=== PATIENT | female | born 1945 | race Caucasian/White ===

== ENCOUNTER 2020-07-24 12:46 | Inpatient (IN) | payer MEDICARE, OTHER ==
[~2020-07-24] VITALS: Ht 154.9 cm; Wt 84.4 kg
[2020-07-24 13:58] VITALS: BP_SYST 123
[2020-07-24 14:02] VITALS: BP 123/60
[2020-07-24] MEDS: guaiFENesin SYRUP 100 MG/5 ML 10 ML (ROBITUSSIN SF) PO SCH ×3 (14:49→20:38)
[2020-07-24] MEDS: ENOXAPARIN 40 MG/0.4 ML (LOVENOX) SYR SC SCH (14:49)
--- NOTE | 2020-07-24 15:24 | History & Physical-Hospitalist ---
History of Present Illness HPI/Chief Complaint Pt is a 74yoCF who was direct admitted from [facility] Urgent care due to COVID19. She states that her beckybadn was diagnosed with COVID on 07/19 and she came back positive the next day as well. She woke up that morning thinking she had pneumonia and had a dry hacking cough. She had a fever of 104.7 this morning prompting her to seek evaluation back at the urgent care. She is on roughly day 7 of symptoms and her sats were 91% at urgent care prompting them to recommend admission. She reports feeling much better now that she is here but continues to have dry cough. Source: patient Date Seen 07/24/20 Time Seen by a Provider: 15:18 Attending Physician Lito Thapa MD PCP Wang Kurtz MD Referring Physician Date of Admission Jul 24, 2020 at 13:38 Home Medications & Allergies Home Medications Reviewed patient Home Medication Reconciliation performed by pharmacy medication reconciliations boiler testing technician and/or nursing. Patients Allergies have been reviewed. Allergies Allergies Coded Allergies amoxicillin (Verified Adverse Reaction, Unknown, YEAST INFECTION, 07/24/20) clavulanic acid (Verified Adverse Reaction, Unknown, YEAST INFECTION, 07/24/20) Past Tqiudbm-Jototh-Qbjiga Hx Past Med/Social Hx: Reviewed Nursing Past Med/Soc Hx Patient Social History Marrital Status: Employed/Student: retired Smoking Status: Former Smoker Recent Foreign Travel: No Contact w/other who traveled: Yes Recent Infectious Disease Expo: Yes (covid19) Family History Reviewed Nursing Family Hx No Pertinent Family Hx Review of Systems Constitutional: fever, malaise EENTM: no symptoms reported Respiratory: cough; No phlegm; short of breath Cardiovascular: no symptoms reported Gastrointestinal: no symptoms reported Genitourinary: no symptoms reported Musculoskeletal: no symptoms reported Skin: no symptoms reported Psychiatric/Neurological: No Symptoms Reported Physical Exam Physical Exam Vital Signs Vital Signs - First Documented 07/24/20 07/24/20 13:58 14:02 Temp 36.1 Pulse 103 Resp 20 B/P (MAP) 123/ Pulse Ox 95 O2 Delivery Room Air Capillary Refill : Less Than 3 Seconds Height, Weight, BMI Height: '" Weight: lbs. oz. kg; 26.88 BMI Method: General Appearance: No Apparent Distress, WD/WN HEENT: PERRL/EOMI, Moist Mucous Membranes; No Scleral Icterus (L), No Scleral Icterus (R) Neck: Normal Inspection, Supple Respiratory: Lungs Clear, No Accessory Muscle Use, No Respiratory Distress Cardiovascular: Regular Rate, Rhythm, No JVD, No Murmur Gastrointestinal: Normal Bowel Sounds, Non Tender, Soft Extremity: Normal Capillary Refill, No Calf Tenderness, No Pedal Edema Neurologic/Psychiatric: Alert, Oriented x3, Normal Mood/Affect Skin: Normal Color, Warm/Dry Results Results/Procedures Labs Patient resulted labs reviewed. Imaging: Reviewed Imaging Report Assessment/Plan Admission Diagnosis COVID19 Admission Status: Observation Assessment and Plan COVID19 Mild hypoxic at [facility] urgent care but on arrival was 94-96 while I was at bedside on room air Will continue decadron Discussed EUA status of convalescent plasma and pt agreeable to use Will defer remdesivir for now as sats 94 and above- reconsider if she becomes hypoxic Labs reveiwed from 07/19 but will get updated ones today IS DVT ppx: Lovenox Diagnosis/Problems Diagnosis/Problems (1) Coronavirus infection LITO THAPA MD Jul 24, 2020 15:24
[2020-07-24] MEDS ORDERED: ASCO500C18 PO (15:46)
[2020-07-24] MEDS ORDERED: DOXY100T2 PO (15:46)
[2020-07-24] MEDS ORDERED: DEXA6TAB PO (15:46)
[2020-07-24] MEDS ORDERED: ASPI-1238 PO (15:46)
[2020-07-24] MEDS ORDERED: ZINC50TA58 PO (15:46)
[2020-07-24] MEDS ORDERED: PANT40TA52 PO (15:46)
[2020-07-24] MEDS ORDERED: CHOL500044 PO (15:46)
[2020-07-24] MEDS ORDERED: ALBU2.5V4 NEB (15:46)
[2020-07-24] MEDS ORDERED: ACET325T38 PO (15:46)
[2020-07-24] MEDS ORDERED: DIPH25TA65 PO (15:46)
[2020-07-24] MEDS ORDERED: ALBU18HF2 INH (15:46)
[2020-07-24] MEDS ORDERED: PROM5SYR PO (15:46)
[2020-07-24] MEDS ORDERED: QUIN324C4 PO (15:46)
--- NOTE | 2020-07-24 15:55 | NUR ---
SPOKE WITH THE PT (CALLED HER ROOM PHONE), WENT THRU THE EXT MED HISTORY AND CALLED [facility] TO COMPLETE THE MED REC THE PT WAS ABLE TO TELL ME THE NAMES OF HER MEDICATIONS WELL WHEN/HOW SHE TAKES EACH. PATRICIA ALSO LET ME KNOW THAT AT [facility] SHE WAS GIVEN A SAMPLE INHALER, BUT SHE CANT REMEMBER THE NAME. I HAD TO LEAVE A MESSAGE WITH URGENT CARE TO FIND OUT WHAT INHALER THEY GAVE THE PT, WHEN THEY RETURN MY CALL I WILL UPDATE THE MED REC/NOTES. OTC MEDS: VIT D BENADRYL TYLENOL THE FOLLOWING OTC MEDS THE PT HAS JUST STARTED TAKING SINCE HER POSITIVE COVID TEST: ASPIRIN 81MG VIT C ZINC Addendum: 07/25/20 at 0800 by ISHAN COTO [facility] RETURNED MY CALL AND LET ME KNOW SHE WAS GIVEN A SAMPLE OF BREZTRI AEROSPHERE
[2020-07-24 16:19] LABS: BASOPHILS % (AUTO) 0 % (0-10); EOSINOPHILS % (AUTO) 0 % (0-10); HEMATOCRIT 40 % (35-52); HEMOGLOBIN 13.1 g/dL (11.5-16.0); LYMPHOCYTES # (AUTO) 0.8 10^3/uL (1.0-4.0); LYMPHOCYTES % (AUTO) 8 % (12-44); MEAN CORPUSCULAR HEMOGLOBIN 28 pg (25-34); MEAN CORPUSCULAR HGB CONC 33 g/dL (32-36); MEAN CORPUSCULAR VOLUME 86 fL (80-99); MEAN PLATELET VOLUME 9.5 fL (9.0-12.2); MONOCYTES # (AUTO) 0.5 10^3/uL (0.0-1.0); MONOCYTES % (AUTO) 5 % (0-12); NEUTROPHILS # (AUTO) 8.6 10^3/uL (1.8-7.8); NEUTROPHILS % (AUTO) 85 % (42-75); PLATELET COUNT 286 10^3/uL (130-400); WHITE BLOOD COUNT 10.2 10^3/uL (4.3-11.0)
[2020-07-24 16:22] VITALS: BP 108/61
[2020-07-24 16:31] LABS: ALANINE AMINOTRANSFERASE 38 U/L (0-55); ALBUMIN 4.1 GM/DL (3.2-4.5); ALKALINE PHOSPHATASE 60 U/L (40-136); BILIRUBIN,TOTAL 0.6 MG/DL (0.1-1.0); BUN/CREATININE RATIO 25; CALCIUM 8.8 MG/DL (8.5-10.1); CARBON DIOXIDE 22 MMOL/L (21-32); CHLORIDE 101 MMOL/L (98-107); CREATININE SERUM 0.73 MG/DL (0.60-1.30); GFR ESTIMATED > 60; GLUCOSE 138 MG/DL (70-105); POTASSIUM 4.6 MMOL/L (3.6-5.0); SODIUM 136 MMOL/L (135-145); TOTAL PROTEIN 6.8 GM/DL (6.4-8.2)
[2020-07-24 17:05] LABS: FIBRIN DEGRADATION PRODUCTS <= 0.27 UG/ML (0.00-0.49); INR 1.1 (0.8-1.4)
--- NOTE | 2020-07-24 17:37 | NUR ---
LAB CALLED IN REGARDS TO CONVALESCENT PLASMA ORDER, BB WILL CALL RN WHEN PLASMA IS READY.
[2020-07-24] MEDS: guaiFENesin/CODEINE (ROBITUSSIN AC) 10ML UDC PO PRN (18:08)
[2020-07-24 19:46] VITALS: BP 111/57
[2020-07-24] MEDS ORDERED: NS IV 500 ML 500 ML ONE (23:16)
[2020-07-24] MEDS: ACETAMINOPHEN 325 MG TABLET PO PRN (23:53)
[2020-07-24 23:55] VITALS: BP 141/62
[2020-07-25] VITALS (11 sets, daily range): BP systolic 86–138; BP diastolic 47–93
[2020-07-25] MEDS: guaiFENesin SYRUP 100 MG/5 ML 10 ML (ROBITUSSIN SF) PO SCH ×6 (01:25→20:45)
[2020-07-25] MEDS: ONDANSETRON 4 MG/2 ML (SDV) Z0FRAN IV PRN (04:25)
[2020-07-25] MEDS: guaiFENesin/CODEINE (ROBITUSSIN AC) 10ML UDC PO PRN (04:26)
[2020-07-25 06:07] LABS: HEMOGLOBIN 11.7 g/dL (11.5-16.0); MEAN PLATELET VOLUME 9.6 fL (9.0-12.2); WHITE BLOOD COUNT 8.7 10^3/uL (4.3-11.0)
[2020-07-25 06:13] LABS: ALBUMIN 3.7 GM/DL (3.2-4.5); CHLORIDE 98 MMOL/L (98-107); POTASSIUM 3.6 MMOL/L (3.6-5.0); SODIUM 131 MMOL/L (135-145)
[2020-07-25 06:14] LABS: CALCIUM 7.9 MG/DL (8.5-10.1)
[2020-07-25 06:16] LABS: GLUCOSE 94 MG/DL (70-105); TOTAL PROTEIN 6.1 GM/DL (6.4-8.2)
[2020-07-25 06:17] LABS: CARBON DIOXIDE 21 MMOL/L (21-32)
[2020-07-25 06:18] LABS: BILIRUBIN,TOTAL 0.7 MG/DL (0.1-1.0)
[2020-07-25 06:19] LABS: ALKALINE PHOSPHATASE 48 U/L (40-136)
[2020-07-25 06:20] LABS: CREATININE SERUM 0.69 MG/DL (0.60-1.30); GFR ESTIMATED > 60
[2020-07-25 06:21] LABS: BUN/CREATININE RATIO 26
[2020-07-25 06:22] LABS: ALANINE AMINOTRANSFERASE 30 U/L (0-55)
[2020-07-25] MEDS ORDERED: BUDE10.7 IH (07:59)
[2020-07-25] MEDS: dexAMETHasone 6 MG TAB (DECADRON) PO SCH (09:46)
[2020-07-25] MEDS: ACETAMINOPHEN 325 MG TABLET PO PRN (10:06)
[2020-07-25] MEDS ORDERED: REMDESIVIR INJ 200 MG in NS (IVPB) 210 ML IV ONE (10:15)
--- NOTE | 2020-07-25 10:25 | NUR ---
PT GAVE VERBAL CONSENT FOR IV REMDESIVIR.
[2020-07-25] MEDS ORDERED: NS IV 1000 ML 1,000 ML ONE (12:10)
--- NOTE | 2020-07-25 12:14 | Progress Note - Hospitalist ---
Subjective HPI/CC On Admission Date Seen by Provider: Jul 25, 2020 Time Seen by Provider: 12:14 Pt is a 74yoCF who was direct [place] [facility] [place] due to COVID19. She states that her liatn was diagnosed with COVID on 07/19 and she came back positive the next day as well. She woke up that morning thinking she had pneumonia and had a dry hacking cough. She had a fever of 104.7 this morning prompting her to seek evaluation back at the urgent care. She is on roughly day 7 of symptoms and her sats were 91% at urgent care prompting them to recommend admission. She reports feeling much better now that she is here but continues to have dry cough. Subjective/Events-last exam Pt reports feeling better today. Fever broke and now feeling better. Did have hypoxia earlier this AM and now on 6lpm. Objective Exam Vital Signs Vital Signs Date Time Temp Pulse Resp B/P (MAP) Pulse Ox O2 Delivery O2 Flow Rate FiO2 07/25/20 10:04 39.6 07/25/20 09:49 116 96 Nasal Cannula 6.00 07/25/20 08:00 20 129/93 (105) Capillary Refill : Less Than 3 SecondsLess Than 3 Seconds General Appearance: No Apparent Distress, WD/WN Respiratory: Lungs Clear, No Respiratory Distress Cardiovascular: Regular Rate, Rhythm, No Murmur Extremity: No Calf Tenderness, No Pedal Edema Neurologic/Psychiatric: Alert, Oriented x3 Results/Procedures Lab Laboratory Tests 07/24/20 15:50 07/25/20 05:50 Patient resulted labs reviewed. Imaging: Reviewed Imaging Report Assessment/Plan Assessment and Plan Assess & Plan/Chief Complaint Acute Respiratory Failure COVID19 Sat 80 on room air this AM, now on 6lpm Remdesivir started this AM Continue decadron S/p 1 unit convalescent plasma IS DVT ppx: Lovenox Diagnosis/Problems Diagnosis/Problems (1) Coronavirus infection Clinical Quality Measures DVT/VTE Risk/Contraindication: Risk Factor Score Per Nursin RFS Level Per Nursing on Admit: 4+=Very High LITO THAPA MD Jul 25, 2020 12:14
[2020-07-25] MEDS ORDERED: NS IV 1000 ML 1,000 ML IV SCH (12:15)
[2020-07-25] MEDS: NS IV 1000 ML 1,000 ML IV SCH (12:20)
[2020-07-25] MEDS: ENOXAPARIN 40 MG/0.4 ML (LOVENOX) SYR SC SCH (13:55)
--- NOTE | 2020-07-25 15:51 | NUR ---
BP 86/47 78HR, 95% 5L HF, 36.2, RESP 20. PT RESTING IN BED, ONLY COMPLAINT IS THAT SHE FEELS TIRED. DR THAPA NOTIFIED VIA PHONE AND GAVE ORDERS TO CONTINUE TO MONITOR BLOOD PRESSURE.
[2020-07-25] MEDS ORDERED: NON-FORMULARY MEDICATION 1 EA EA (Budesonide/Glycopyr/Formoterol (Breztri Aerosphere Inhal IH SCH (21:00)
[2020-07-26] MEDS: guaiFENesin SYRUP 100 MG/5 ML 10 ML (ROBITUSSIN SF) PO SCH ×6 (02:10→20:25)
[2020-07-26] MEDS: NS IV 1000 ML 1,000 ML IV SCH ×2 (02:10→16:28)
[2020-07-26 03:46] VITALS: BP 107/68
[2020-07-26 06:10] LABS: ALANINE AMINOTRANSFERASE 30 U/L (0-55); ALBUMIN 3.4 GM/DL (3.2-4.5); ALKALINE PHOSPHATASE 49 U/L (40-136); BILIRUBIN,TOTAL 0.5 MG/DL (0.1-1.0); BUN/CREATININE RATIO 31; CALCIUM 7.9 MG/DL (8.5-10.1); CARBON DIOXIDE 20 MMOL/L (21-32); CHLORIDE 103 MMOL/L (98-107); CREATININE SERUM 0.58 MG/DL (0.60-1.30); GFR ESTIMATED > 60; GLUCOSE 90 MG/DL (70-105); POTASSIUM 3.7 MMOL/L (3.6-5.0); SODIUM 133 MMOL/L (135-145); TOTAL PROTEIN 5.7 GM/DL (6.4-8.2)
[2020-07-26 08:07] VITALS: BP 116/55
[2020-07-26] MEDS: VITAMIN D3 125 MCG (5,000 UNITS) CAPSULE PO SCH (08:51)
[2020-07-26] MEDS: dexAMETHasone 6 MG TAB (DECADRON) PO SCH (08:51)
[2020-07-26] MEDS: ASPIRIN E.C. 81 MG (ECOTRIN) TAB PO SCH (08:51)
[2020-07-26] MEDS: guaiFENesin/CODEINE (ROBITUSSIN AC) 10ML UDC PO PRN ×2 (08:53→20:25)
[2020-07-26] MEDS: REMDESIVIR INJ 100 MG in NS (IVPB) 230 ML IV SCH (09:00)
[2020-07-26] MEDS: ACETAMINOPHEN 325 MG TABLET PO PRN ×2 (09:14→18:52)
[2020-07-26 11:35] VITALS: BP 102/52
--- NOTE | 2020-07-26 13:02 | Progress Note - Hospitalist ---
Subjective HPI/CC On Admission Date Seen by Provider: Jul 26, 2020 Time Seen by Provider: 12:58 Pt is a 74yoCF who was direct admitted from [facility] care due to COVID19. She states that her liatn was diagnosed with COVID on 07/19 and she came back positive the next day as well. She woke up that morning thinking she had pneumonia and had a dry hacking cough. She had a fever of 104.7 this morning prompting her to seek evaluation back at the urgent care. She is on roughly day 7 of symptoms and her sats were 91% at urgent care prompting them to recommend admission. She reports feeling much better now that she is here but continues to have dry cough. Subjective/Events-last exam Pt reports doing ok physically but has had a rough morning because her is currently being admitted. She is tearful during our conversation. Objective Exam Vital Signs Vital Signs Date Time Temp Pulse Resp B/P (MAP) Pulse Ox O2 Delivery O2 Flow Rate FiO2 07/26/20 11:35 36.4 96 24 102/52 (69) 93 High Flow N/C 6.00 Capillary Refill : Less Than 3 SecondsLess Than 3 Seconds General Appearance: No Apparent Distress, Chronically ill Respiratory: Lungs Clear, Other (on 6lpm HFNC) Cardiovascular: Regular Rate, Rhythm, No Murmur Gastrointestinal: Normal Bowel Sounds, Non Tender, Soft Neurologic/Psychiatric: Alert, Oriented x3 Results/Procedures Lab Laboratory Tests 07/26/20 05:22 Patient resulted labs reviewed. Imaging: Reviewed Imaging Report Assessment/Plan Assessment and Plan Assess & Plan/Chief Complaint Acute Respiratory Failure COVID19 Still on 6lpm Continue remdesivir Continue decadron S/p 1 unit convalescent plasma IS PT/OT DVT ppx: Lovenox Diagnosis/Problems Diagnosis/Problems (1) Coronavirus infection Clinical Quality Measures DVT/VTE Risk/Contraindication: Risk Factor Score Per Nursin RFS Level Per Nursing on Admit: 4+=Very High LITO THAPA MD Jul 26, 2020 13:02
[2020-07-26] MEDS: ENOXAPARIN 40 MG/0.4 ML (LOVENOX) SYR SC SCH (13:09)
--- NOTE | 2020-07-26 14:56 | NUR ---
"RD ASSESSMENT PMHx: unknown PMH PT INTERACTION: Note pt is currently in COVID isolation, per chart review. Note all diet information for nutrition assessment is per Sarahi RN or per chart review. Sarahi states current appetite appears better today. Note avg PO intake 50% x1d, per chart review. Sarahi states some recent issues with nausea, vomiting, and diarrhea that she is aware of. Note last BM was 07/26, and pt not currently on bowel regimen per chart review. Note unable to determine recent wt hx, per chart review. ABNORMAL NUTRITION-RELATED LAB VALUES LOW: Na 133; cr 0.58; Ca 7.9; Pro 5.7 HIGH: AST 35; Est. kcal needs: 7853-8982 kcal | 20-25 kcal/kg Est. Pro needs: 52-65 g Pro | 0.8-1.0 g Pro/kg PES STATEMENT: Inadequate oral intake (NI-2.1) related to loss of appetite, nausea, vomiting, and diarrhea, as evidenced by chart review, communication with RN, and avg PO intake 50% x1d. INTERVENTION: Continue with current diet order of Regular diet. Add Ensure Enlive (vary) to meals TID, for increased kcal intake. Provides 350 kcal and 20 g Pro per serving. Will continue to follow and reassess as pt needs, intake, and status change. Yonas Terry, MS RD LD"
[2020-07-26 15:49] VITALS: BP 97/59
[2020-07-26 19:36] VITALS: BP 96/53
[2020-07-26 23:55] VITALS: BP 98/59
[2020-07-27] MEDS: guaiFENesin SYRUP 100 MG/5 ML 10 ML (ROBITUSSIN SF) PO SCH ×6 (01:09→20:57)
[2020-07-27 04:22] VITALS: BP 110/59
[2020-07-27] MEDS: NS IV 1000 ML 1,000 ML IV SCH (06:00)
[2020-07-27 06:53] LABS: ALBUMIN 3.1 GM/DL (3.2-4.5)
[2020-07-27 06:54] LABS: CHLORIDE 105 MMOL/L (98-107); POTASSIUM 3.9 MMOL/L (3.6-5.0); SODIUM 138 MMOL/L (135-145)
[2020-07-27 06:55] LABS: CALCIUM 7.7 MG/DL (8.5-10.1)
[2020-07-27 06:56] LABS: GLUCOSE 100 MG/DL (70-105); TOTAL PROTEIN 5.5 GM/DL (6.4-8.2)
[2020-07-27 06:57] LABS: CARBON DIOXIDE 22 MMOL/L (21-32)
[2020-07-27 06:58] LABS: BILIRUBIN,TOTAL 0.4 MG/DL (0.1-1.0)
[2020-07-27 06:59] LABS: ALKALINE PHOSPHATASE 43 U/L (40-136); CREATININE SERUM 0.53 MG/DL (0.60-1.30); GFR ESTIMATED > 60
[2020-07-27 07:00] LABS: BUN/CREATININE RATIO 25
[2020-07-27 07:02] LABS: ALANINE AMINOTRANSFERASE 24 U/L (0-55)
[2020-07-27 08:00] VITALS: BP 134/61
[2020-07-27] MEDS: dexAMETHasone 6 MG TAB (DECADRON) PO SCH (08:56)
[2020-07-27] MEDS: ASPIRIN E.C. 81 MG (ECOTRIN) TAB PO SCH (08:56)
[2020-07-27] MEDS: VITAMIN D3 125 MCG (5,000 UNITS) CAPSULE PO SCH (08:56)
[2020-07-27] MEDS: ACETAMINOPHEN 325 MG TABLET PO PRN ×3 (08:57→21:53)
[2020-07-27] MEDS: REMDESIVIR INJ 100 MG in NS (IVPB) 230 ML IV SCH (09:04)
--- NOTE | 2020-07-27 11:29 | Progress Note - Hospitalist ---
Subjective HPI/CC On Admission Date Seen by Provider: Jul 27, 2020 Time Seen by Provider: 11:24 Pt is a 74yoCF who was direct admitted from [facility] care due to COVID19. She states that her liatn was diagnosed with COVID on 07/19 and she came back positive the next day as well. She woke up that morning thinking she had pneumonia and had a dry hacking cough. She had a fever of 104.7 this morning prompting her to seek evaluation back at the urgent care. She is on roughly day 7 of symptoms and her sats were 91% at urgent care prompting them to recommend admission. She reports feeling much better now that she is here but continues to have dry cough. Subjective/Events-last exam Pt reports feeling more short of breath this AM. Otherwise no complaints. Objective Exam Vital Signs Vital Signs Date Time Temp Pulse Resp B/P (MAP) Pulse Ox O2 Delivery O2 Flow Rate FiO2 07/27/20 08:00 36.7 84 22 134/61 (85) 90 OxyMask 6.00 Capillary Refill : Less Than 3 SecondsLess Than 3 Seconds General Appearance: No Apparent Distress, WD/WN Respiratory: Wheezing (end expiratory), Other (on 6lpm) Cardiovascular: Regular Rate, Rhythm, Normal Peripheral Pulses Neurologic/Psychiatric: Alert, Oriented x3, Normal Mood/Affect Results/Procedures Lab Laboratory Tests 07/27/20 05:59 Patient resulted labs reviewed. Imaging: Reviewed Imaging Report Assessment/Plan Assessment and Plan Assess & Plan/Chief Complaint Acute Respiratory Failure COVID19 Still on 6lpm Continue remdesivir Continue decadron S/p 1 unit convalescent plasma IS PT/OT Overall prognosis in guarded, discussed that we will take each day one at a time and help support her through this and that she is getting every treatment available to us DVT ppx: Lovenox Diagnosis/Problems Diagnosis/Problems (1) Coronavirus infection Status: Acute (2) Acute respiratory failure Status: Acute Qualifiers: Respiratory failure complication: hypoxia Qualified Codes: J96.01 - Acute respiratory failure with hypoxia Clinical Quality Measures DVT/VTE Risk/Contraindication: Risk Factor Score Per Nursin RFS Level Per Nursing on Admit: 4+=Very High LITO THAPA MD Jul 27, 2020 11:29
[2020-07-27 11:58] VITALS: BP 123/95
[2020-07-27 12:00] VITALS: BP 130/60
--- NOTE | 2020-07-27 14:05 | Physical Therapy Evaluation ---
PT Evaluation-General Medical Diagnosis Admission Date Jul 24, 2020 at 13:38 Medical Diagnosis: Covid 19 Onset Date: Jul 24, 2020 Therapy Diagnosis Therapy Diagnosis: debility Precautions Precautions/Isolations: Contact Isolation, Droplet Isolation Referral Physician: Maricel Reason for Referral: Evaluation/Treatment Medical History Current History Direct admit from urgent care with 104 fever Reviewed History: Yes Social History Home: Single Level Current Living Status: Spouse Prior Prior Level of Function SCALE: Activities may be completed with or without assistive devices. 3-Skniozebaw-tjsdxhd completes the activity by him/herself with no assistance from a helper. 5-Set-up or Clean-up Assistance-helper sets up or cleans up; patient completes activity. [place] assists only prior to or following the activity. 4-Supervision or Touching Assistance-helper provides verbal cues and/or touching/steadying and/or contact guard assistance as patient completes activity. Assistance may be provided throughout the activity or intermittently. 3-Partial/Moderate Assistance-helper does LESS THAN HALF the effort. [place] lifts, holds or supports trunk or limbs, but provides less than half the effort. 2-Substantial/Maximal Assistance-helper does MORE THAN HALF the effort. [place] lifts or holds trunk or limbs and provides more than half the effort. 2-Hqdzmnnfs-tqhaem does ALL the effort. Patient does none of the effort to complete the activity. Or, the assistance of 2 or more helpers is required for the patient to complete the activity. If activity was not attempted, code reason: 7-Patient Refused. 9-Not Applicable-not attempted and the patient did not perform the activity before the current illness, exacerbation or injury. 10-Not Attempted due to Environmental Limitations-(lack of equipment, weather restraints, etc.). 88-Not Attempted due to Medical Conditions or Safety Concerns. Bed Mobility: 6 Transfers (B,C,W/C): 6 Gait: 6 Stairs: 6 Indoor Mobility (Ambulation): Independent Stairs: Independent Prior Devices Use: None PT Evaluation-Current Subjective Patient agrees to PT. She reports she is feeling better today. Objective Patient Orientation: Normal For Age Attachments: Oxygen, IV ROM/Strength ROM Lower Extremities bilateral LE WFL Strength Lower Extremities 4/5 grossly bilateral LE Integumentary/Posture Integumentary refer to nursing notes Bowel Incontinence: No Bladder Incontinence: No Posture grossly intact Neuromuscular (Tone, Coordination, Reflexes) grossly intact Sensory Vision: Functional Hearing: Functional Transfers Roll Left to Right (QC): 6 Sit to Lying (QC): 6 Lying to Sitting/Side of Bed(Q: 6 Sit to Stand (QC): 5 Chair/Asl-hf-Ppewx Xfer(QC): 5 Toilet Transfer (QC): 5 Gait Does the Patient Walk?: Yes Mode of Locomotion: Walk Anticipated Mode of Locomotion: Walk Walk 10 feet (QC): 5 Walk 50 ft with 2 Turns(QC): 5 Walk 150 ft (QC): 88 Gait Assistive Device: FWW Comments/Gait Description safe and functional with FWW Balance Sitting Static: Normal Sitting Dynamic: Normal Standing Static: Normal Standing Dynamic: Normal Treatment Increase SOA with minimal activity with SAO2 95% with O2 in place Assessment/Needs 74 y.o. female, will be seen short term by skilled PT to address pulmonary function with functional mobility to ensure safe return to home with spouse at maximum LOF. Rehab Potential: Fair PT [facility] Goals [facility] Goals PT Information Security Consultant Goals Time Frame: Aug 03, 2020 Roll Left & Right (QC): 6 Sit to Lying (QC): 6 Lying-Sitting on Side/Bed(QC): 6 Sit to Stand (QC): 6 Chair/Tml-eg-Lsrha Xfer(QC): 6 Toilet Transfer (QC): 6 Car Transfer (QC): 6 Does the Patient Walk: Yes Walk 10 feet (QC): 6 Walk 50ft with 2 Turns (QC): 6 Walk 150 ft (QC): 6 Walking 10ft on Uneven Surface: 6 1 Step (curb) (QC): 6 4 Steps (QC): 6 12 Steps (QC): 9 PT Plan Problem List Problem List: Activity Tolerance Treatment/Plan Treatment Plan: Continue Plan of Care Treatment Plan: Education, Functional Activity Mumtaz, Functional Strength, Gait, Safety, Therapeutic Exercise, Transfers Treatment Duration: Aug 03, 2020 Frequency: 6 times per week Estimated Hrs Per Day: .25 hour per day Patient and/or Family Agrees t: Yes Time/GCodes Time In: 1300 Time Out: 1320 Total Billed Treatment Time: 20 Total Billed Treatment 1 visit EVModC 20 min CRISTINO JEFFREY PT Jul 27, 2020 14:05
[2020-07-27] MEDS: ENOXAPARIN 40 MG/0.4 ML (LOVENOX) SYR SC SCH (14:57)
[2020-07-27 15:32] VITALS: BP 112/56
[2020-07-27 19:31] VITALS: BP 124/57
[2020-07-27] MEDS: RT-ALBUTEROL INHALER HFA (VENTOLIN HFA) 18 GM IH SCH (19:52)
[2020-07-27] MEDS: guaiFENesin/CODEINE (ROBITUSSIN AC) 10ML UDC PO PRN (20:55)
[2020-07-27] MEDS ORDERED: NS IV 1000 ML 1,000 ML ONE (21:25)
[2020-07-28] VITALS (16 sets, daily range): BP systolic 110–154; BP diastolic 59–90
[2020-07-28] MEDS: guaiFENesin SYRUP 100 MG/5 ML 10 ML (ROBITUSSIN SF) PO SCH ×6 (00:25→20:08)
[2020-07-28 06:09] LABS: MEAN PLATELET VOLUME 9.7 fL (9.0-12.2); WHITE BLOOD COUNT 7.3 10^3/uL (4.3-11.0)
[2020-07-28 06:25] LABS: ALBUMIN 3.2 GM/DL (3.2-4.5)
[2020-07-28 06:26] LABS: CHLORIDE 103 MMOL/L (98-107); POTASSIUM 3.6 MMOL/L (3.6-5.0); SODIUM 138 MMOL/L (135-145)
[2020-07-28 06:27] LABS: CALCIUM 8.1 MG/DL (8.5-10.1)
[2020-07-28 06:28] LABS: GLUCOSE 116 MG/DL (70-105); TOTAL PROTEIN 5.7 GM/DL (6.4-8.2)
[2020-07-28 06:29] LABS: CARBON DIOXIDE 22 MMOL/L (21-32)
[2020-07-28 06:30] LABS: BILIRUBIN,TOTAL 0.4 MG/DL (0.1-1.0)
[2020-07-28 06:31] LABS: ALKALINE PHOSPHATASE 45 U/L (40-136)
[2020-07-28 06:32] LABS: CREATININE SERUM 0.52 MG/DL (0.60-1.30); GFR ESTIMATED > 60
[2020-07-28 06:33] LABS: BUN/CREATININE RATIO 21
[2020-07-28 06:35] LABS: ALANINE AMINOTRANSFERASE 21 U/L (0-55)
[2020-07-28] MEDS: dexAMETHasone 6 MG TAB (DECADRON) PO SCH (07:51)
[2020-07-28] MEDS: VITAMIN D3 125 MCG (5,000 UNITS) CAPSULE PO SCH (07:51)
[2020-07-28] MEDS: ACETAMINOPHEN 325 MG TABLET PO PRN (07:51)
[2020-07-28] MEDS: ASPIRIN E.C. 81 MG (ECOTRIN) TAB PO SCH (07:51)
[2020-07-28] MEDS: RT-ALBUTEROL INHALER HFA (VENTOLIN HFA) 18 GM IH PRN ×2 (07:53→15:39)
[2020-07-28] MEDS: RT-ALBUTEROL INHALER HFA (VENTOLIN HFA) 18 GM IH SCH ×3 (08:23→21:58)
--- NOTE | 2020-07-28 10:08 | Physical Therapy Progress Note ---
Therapy Progress Note Pt sitting up EOB struggling to breath, O2 sats remaining at 85%, RN present in room states that he just increased her oxygen. Pt requesting to hold therapy this date "I just need to focus on breathing." Will follow up Thursday to continue with therapy treatment. PAYAL BUI PT Jul 28, 2020 10:08
[2020-07-28] MEDS: REMDESIVIR INJ 100 MG in NS (IVPB) 230 ML IV SCH (10:20)
--- NOTE | 2020-07-28 12:39 | Progress Note - Hospitalist ---
Subjective HPI/CC On Admission Date Seen by Provider: Jul 28, 2020 Time Seen by Provider: 12:34 Pt is a 74yoCF who was direct admitted from [facility] care due to COVID19. She states that her liatn was diagnosed with COVID on 07/19 and she came back positive the next day as well. She woke up that morning thinking she had pneumonia and had a dry hacking cough. She had a fever of 104.7 this morning prompting her to seek evaluation back at the urgent care. She is on roughly day 7 of symptoms and her sats were 91% at urgent care prompting them to recommend admission. She reports feeling much better now that she is here but continues to have dry cough. Subjective/Events-last exam Pt reports not feeling as well today. Had worsening dyspnea and oxygen saturations this morning. Now on 10lpm and requesting BiPAP to help with her work of breathing. Discussed with her and her daughter about using BiPAP and t ransferring to the ICU for this. Pt very tearful and anxious but agreeable to plan. Answer all questions of patient and her daughter's to the best of my ability. Specifically they asked about use of bamlanivimab and we discussed that this medicine is not readily available yet and only approved for people not in the hospital. Objective Exam Vital Signs Vital Signs Date Time Temp Pulse Resp B/P (MAP) Pulse Ox O2 Delivery O2 Flow Rate FiO2 07/28/20 12:05 36.2 85 26 152/70 (97) 96 High Flow N/C 9.00 07/27/20 11:58 21 Capillary Refill : Less Than 3 SecondsLess Than 3 Seconds General Appearance: Anxious, Chronically ill, Mild Distress Respiratory: Decreased Breath Sounds; No Wheezing; Other (increased work of breath) Cardiovascular: Regular Rate, Rhythm, No Murmur Gastrointestinal: Normal Bowel Sounds, Soft Neurologic/Psychiatric: Alert, Oriented x3, Normal Mood/Affect Results/Procedures Lab Laboratory Tests 07/28/20 05:55 Patient resulted labs reviewed. Imaging: Reviewed Imaging Report Assessment/Plan Assessment and Plan Assess & Plan/Chief Complaint Acute Respiratory Failure COVID19 Up to 10lpm today with increased work of breathing, requesting BiPAP Will transfer to ICU for BiPAP, I informed her daughter of this and her who is a patient next door as well Continue to prone Continue remdesivir Continue decadron S/p 1 unit convalescent plasma IS PT/OT CXR ordered Will repeat d-dimer Overall prognosis remains guarded, I worry that she may continue to worsen over the next few days but hopefully we will be able to maintain oxygenation on BiPAP DVT ppx: Lovenox Diagnosis/Problems Diagnosis/Problems (1) Acute respiratory failure Status: Acute Qualifiers: Respiratory failure complication: hypoxia Qualified Codes: J96.01 - Acute respiratory failure with hypoxia (2) Coronavirus infection Status: Acute Clinical Quality Measures DVT/VTE Risk/Contraindication: Risk Factor Score Per Nursin RFS Level Per Nursing on Admit: 4+=Very High LITO THAPA MD Jul 28, 2020 12:39
[2020-07-28] MEDS: ENOXAPARIN 40 MG/0.4 ML (LOVENOX) SYR SC SCH (13:08)
[2020-07-28 13:22] LABS: ABG BASE EXCESS 2.2 MMOL/L (-2.5-2.5); ABG OXYGEN SATURATION 86 % (94-100); ABG PCO2 29 MMHG (35-45); ABG PH 7.54 (7.37-7.43); ABG PO2 52 MMHG (79-93); ABG TCO2 25.8 MMOL/L (21.0-31.0)
[2020-07-28 13:23] LABS: ALLENS TEST YES-POS; INSPIRED O2 15L HF; PATIENT TEMP 36.1; VENTILATOR NO
--- NOTE | 2020-07-28 13:26 | Diagnostic Imaging Report ---
EXAMINATION: Chest radiograph, portable AP view. DATE: 07/28/2020 1:05 PM hours. INDICATION: 74-year-old female, history of COVID 19 infection. Worsening hypoxia. COMPARISON: February 02, 2016. 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 There is multifocal bilateral lung consolidation which is a new finding since the comparison study. Heart size and mediastinal contours are unchanged. There is no identified pneumothorax. There is no large pleural effusion. IMPRESSION: 1. Multifocal bilateral lung consolidation which is a nonspecific finding although would be compatible with multifocal pneumonia and provided history of COVID 19 infection. Dictated by: Dictated on workstation # [id number]
--- NOTE | 2020-07-28 15:30 | NUR ---
PATIENT TO ROOM CU 8. PT ORIENTED TO ROOM AND CALL LIGHT. REPORT FROM SEGUNDO MARK.
[2020-07-29] VITALS (32 sets, daily range): BP systolic 91–156; BP diastolic 54–96
[2020-07-29] MEDS: guaiFENesin SYRUP 100 MG/5 ML 10 ML (ROBITUSSIN SF) PO SCH ×6 (00:56→20:28)
[2020-07-29] MEDS: ACETAMINOPHEN 325 MG TABLET PO PRN ×2 (01:01→16:28)
--- NOTE | 2020-07-29 01:04 | NUR ---
Pt c/o anxiety with wearing bipap, TeleICU contacted, awaiting orders.
[2020-07-29] MEDS: DexMEDEtomidine PRE MIX 100 ML IV SCH ×2 (01:25→14:04)
[2020-07-29] MEDS: RT-ALBUTEROL INHALER HFA (VENTOLIN HFA) 18 GM IH SCH ×6 (02:27→21:02)
[2020-07-29 03:57] LABS: HEMOGLOBIN 11.9 g/dL (11.5-16.0); MEAN PLATELET VOLUME 9.9 fL (9.0-12.2); WHITE BLOOD COUNT 6.7 10^3/uL (4.3-11.0)
[2020-07-29 04:09] LABS: ALBUMIN 3.2 GM/DL (3.2-4.5)
[2020-07-29 04:10] LABS: CHLORIDE 101 MMOL/L (98-107); POTASSIUM 3.5 MMOL/L (3.6-5.0); SODIUM 137 MMOL/L (135-145)
[2020-07-29 04:11] LABS: CALCIUM 7.8 MG/DL (8.5-10.1)
[2020-07-29 04:12] LABS: GLUCOSE 121 MG/DL (70-105); TOTAL PROTEIN 5.7 GM/DL (6.4-8.2)
[2020-07-29 04:13] LABS: CARBON DIOXIDE 21 MMOL/L (21-32)
[2020-07-29 04:14] LABS: BILIRUBIN,TOTAL 0.7 MG/DL (0.1-1.0)
[2020-07-29 04:15] LABS: ALKALINE PHOSPHATASE 40 U/L (40-136)
[2020-07-29 04:16] LABS: GFR ESTIMATED > 60
[2020-07-29 04:17] LABS: BUN/CREATININE RATIO 34
[2020-07-29 04:19] LABS: ALANINE AMINOTRANSFERASE 19 U/L (0-55)
[2020-07-29] MEDS: ASPIRIN E.C. 81 MG (ECOTRIN) TAB PO SCH (07:38)
[2020-07-29] MEDS: dexAMETHasone 6 MG TAB (DECADRON) PO SCH (07:38)
[2020-07-29] MEDS: VITAMIN D3 125 MCG (5,000 UNITS) CAPSULE PO SCH (07:38)
[2020-07-29] MEDS: REMDESIVIR INJ 100 MG in NS (IVPB) 230 ML IV SCH (09:11)
--- NOTE | 2020-07-29 09:51 | Progress Note - Hospitalist ---
Subjective HPI/CC On Admission Date Seen by Provider: Jul 29, 2020 Time Seen by Provider: 09:47 Pt is a 74yoCF who was direct [place] [facility] [place] [place] due to COVID19. She states that her liatn was diagnosed with COVID on 07/19 and she came back positive the next day as well. She woke up that morning thinking she had pneumonia and had a dry hacking cough. She had a fever of 104.7 this morning prompting her to seek evaluation back at the urgent care. She is on roughly day 7 of symptoms and her sats were 91% at urgent care prompting them to recommend admission. She reports feeling much better now that she is here but continues to have dry cough. Subjective/Events-last exam Pt reports doing better today. on Vapotherm. laying prone with sats of 96%. Objective Exam Vital Signs Vital Signs Date Time Temp Pulse Resp B/P (MAP) Pulse Ox O2 Delivery O2 Flow Rate FiO2 07/29/20 08:00 67 10 109/68 (82) 97 NIV Bilevel 60.00 07/29/20 07:54 100 07/29/20 07:47 36.4 Capillary Refill : Less Than 3 SecondsLess Than 3 Seconds General Appearance: Chronically ill, Other (laying prone in bed) Respiratory: No Accessory Muscle Use, Decreased Breath Sounds; No Rhonci; Other (on Vapotherm) Cardiovascular: Regular Rate, Rhythm, No Murmur Gastrointestinal: Normal Bowel Sounds, Non Tender, Soft Neurologic/Psychiatric: Alert, Oriented x3 Results/Procedures Lab Laboratory Tests 07/29/20 03:13 Patient resulted labs reviewed. Imaging: Reviewed Imaging Report Assessment/Plan Assessment and Plan Assess & Plan/Chief Complaint Acute Respiratory Failure COVID19 Now on Vapotherm, doing ok with sats Continue to prone Continue remdesivir Continue decadron S/p 1 unit convalescent plasma IS PT/OT as able D-dimer negative Overall prognosis remains guarded, I worry that she may continue to worsen over the next few days but overall stable in the last 24 hours, encouraged continued proning DVT ppx: Lovenox Diagnosis/Problems Diagnosis/Problems (1) Acute respiratory failure Status: Acute Qualifiers: Respiratory failure complication: hypoxia Qualified Codes: J96.01 - Acute respiratory failure with hypoxia (2) Coronavirus infection Status: Acute Clinical Quality Measures DVT/VTE Risk/Contraindication: Risk Factor Score Per Nursin RFS Level Per Nursing on Admit: 4+=Very High LITO THAPA MD Jul 29, 2020 09:51
[2020-07-29] MEDS: ENOXAPARIN 40 MG/0.4 ML (LOVENOX) SYR SC SCH (16:28)
[2020-07-30] VITALS (35 sets, daily range): BP systolic 93–132; BP diastolic 48–113
[2020-07-30] MEDS: RT-ALBUTEROL INHALER HFA (VENTOLIN HFA) 18 GM IH SCH ×6 (01:27→22:13)
[2020-07-30] MEDS: guaiFENesin SYRUP 100 MG/5 ML 10 ML (ROBITUSSIN SF) PO SCH ×6 (02:01→20:38)
[2020-07-30] MEDS: DexMEDEtomidine PRE MIX 100 ML IV SCH ×2 (02:01→12:31)
[2020-07-30 03:43] LABS: BASOPHILS % (AUTO) 0 % (0-10); EOSINOPHILS % (AUTO) 0 % (0-10); HEMATOCRIT 38 % (35-52); HEMOGLOBIN 12.1 g/dL (11.5-16.0); LYMPHOCYTES # (AUTO) 1.1 10^3/uL (1.0-4.0); LYMPHOCYTES % (AUTO) 16 % (12-44); MEAN CORPUSCULAR HEMOGLOBIN 28 pg (25-34); MEAN CORPUSCULAR HGB CONC 32 g/dL (32-36); MEAN CORPUSCULAR VOLUME 86 fL (80-99); MEAN PLATELET VOLUME 9.7 fL (9.0-12.2); MONOCYTES # (AUTO) 0.4 10^3/uL (0.0-1.0); MONOCYTES % (AUTO) 6 % (0-12); NEUTROPHILS # (AUTO) 5.5 10^3/uL (1.8-7.8); NEUTROPHILS % (AUTO) 77 % (42-75); PLATELET COUNT 273 10^3/uL (130-400); WHITE BLOOD COUNT 7.2 10^3/uL (4.3-11.0)
[2020-07-30 03:48] LABS: ALBUMIN 3.3 GM/DL (3.2-4.5); CHLORIDE 102 MMOL/L (98-107); POTASSIUM 3.7 MMOL/L (3.6-5.0); SODIUM 135 MMOL/L (135-145)
[2020-07-30 03:49] LABS: CALCIUM 7.9 MG/DL (8.5-10.1)
[2020-07-30 03:50] LABS: GLUCOSE 129 MG/DL (70-105); TOTAL PROTEIN 5.7 GM/DL (6.4-8.2)
[2020-07-30 03:51] LABS: CARBON DIOXIDE 21 MMOL/L (21-32)
[2020-07-30 03:52] LABS: BILIRUBIN,TOTAL 0.7 MG/DL (0.1-1.0)
[2020-07-30 03:54] LABS: ALKALINE PHOSPHATASE 39 U/L (40-136); CREATININE SERUM 0.57 MG/DL (0.60-1.30); GFR ESTIMATED > 60
[2020-07-30 03:55] LABS: BUN/CREATININE RATIO 42
[2020-07-30 03:57] LABS: ALANINE AMINOTRANSFERASE 19 U/L (0-55)
[2020-07-30 03:58] LABS: ABG BASE EXCESS 1.2 MMOL/L (-2.5-2.5); ABG OXYGEN SATURATION 91 % (94-100); ABG PCO2 32 MMHG (35-45); ABG PH 7.49 (7.37-7.43); ABG PO2 64 MMHG (79-93); ABG TCO2 25.4 MMOL/L (21.0-31.0)
[2020-07-30 04:08] LABS: ALLENS TEST NEGATIVE
[2020-07-30 04:09] LABS: INSPIRED O2 70% FIO2; PATIENT TEMP 36.6; VENTILATOR NO
[2020-07-30] MEDS: VITAMIN D3 125 MCG (5,000 UNITS) CAPSULE PO SCH (07:41)
[2020-07-30] MEDS: dexAMETHasone 6 MG TAB (DECADRON) PO SCH (07:41)
[2020-07-30] MEDS: ASPIRIN E.C. 81 MG (ECOTRIN) TAB PO SCH (07:41)
--- NOTE | 2020-07-30 08:19 | Physical Therapy Progress Note ---
Therapy Progress Note Patient transferred to ICU due to pulmonary function. PT will require new orders. PT will consult with physician and RN. CRISTINO JEFFREY PT Jul 30, 2020 08:19
[2020-07-30] MEDS ORDERED: NS IV 1000 ML 1,000 ML IV ONE (09:00)
[2020-07-30] MEDS ORDERED: NS IV 1000 ML 1,000 ML ONE (09:02)
--- NOTE | 2020-07-30 09:03 | NUR ---
bp trending down, currently 75/49. dr castro notified. new orders received for ns bolus x1 liter and picc line.
[2020-07-30] MEDS: inSUlin ASPART (NovoLOG) 1 UNIT/0.01 ML (CHARGE PER UNIT) SC SCH ×3 (10:55→20:57)
--- NOTE | 2020-07-30 11:58 | Physical Therapy Progress Note ---
Therapy Progress Note No orders at this time due to current status. Will continue to monitor patient status. CRISTINO JEFFREY PT Jul 30, 2020 11:58
[2020-07-30] MEDS: ENOXAPARIN 40 MG/0.4 ML (LOVENOX) SYR SC SCH (12:56)
--- NOTE | 2020-07-30 14:48 | Progress Note - Hospitalist ---
Subjective HPI/CC On Admission Date Seen by Provider: Jul 30, 2020 Time Seen by Provider: 09:20 Pt is a 74yoCF who was direct admitted from [facility] due to COVID19. She states that her beckybadn was diagnosed with COVID on 07/19 and she came back positive the next day as well. She woke up that morning thinking she had pneumonia and had a dry hacking cough. She had a fever of 104.7 this morning prompting her to seek evaluation back at the urgent care. She is on roughly day 7 of symptoms and her sats were 91% at urgent care prompting them to recommend admission. She reports feeling much better now that she is here but continues to have dry cough. Subjective/Events-last exam She is still on BiPAP. She is anxious. She says she will continue proning and doing whatever we ask of her. She has no other complaints or concerns. Objective Exam Vital Signs Vital Signs Date Time Temp Pulse Resp B/P (MAP) Pulse Ox O2 Delivery O2 Flow Rate FiO2 07/30/20 13:00 75 07/30/20 12:59 Vapotherm 25.00 100.00 07/30/20 12:58 35.2 07/30/20 12:31 23 93 07/30/20 12:00 113/67 (82) 07/30/20 08:00 100 Capillary Refill : Less Than 3 SecondsLess Than 3 Seconds General Appearance: No Apparent Distress, WD/WN, Anxious Respiratory: Lungs Clear, Normal Breath Sounds, No Respiratory Distress Cardiovascular: Regular Rate, Rhythm, No Edema, No Murmur Gastrointestinal: Normal Bowel Sounds, Non Tender, Soft Extremity: Normal Inspection, Non Tender, No Pedal Edema Neurologic/Psychiatric: Alert, Oriented x3, No Motor/Sensory Deficits, Normal Mood/Affect Skin: Normal Color, Warm/Dry Results/Procedures Lab Laboratory Tests 07/30/20 02:55 Patient resulted labs reviewed. Imaging: Reviewed Imaging Report Assessment/Plan Assessment and Plan Assess & Plan/Chief Complaint Acute respiratory failure due to COVID-19 Currently on BIPAP Proning as tolerated Remdesivir Decadron S/p 1 unit convalescent plasma PT/OT as able DVT ppx: Lovenox Diagnosis/Problems Diagnosis/Problems (1) Acute respiratory failure due to COVID-19 Status: Acute Clinical Quality Measures DVT/VTE Risk/Contraindication: Risk Factor Score Per Nursin RFS Level Per Nursing on Admit: 4+=Very High NESTOR MISTRY MD Jul 30, 2020 14:48
--- NOTE | 2020-07-30 15:35 | NUR ---
During care rounds, it was noted that pt's avg PO intake <25% meals per chart review. Would recommend continuation of supplementation order of Ensure Enlive with meals TID. Provides 350 kcal and 20 g Pro per serving. Will continue to follow and reassess as pt needs, intake, and status change. Yonas Terry, MS RD LD [phone] (cell)
--- NOTE | 2020-07-30 15:39 | NUR ---
PT IN PRONE POSITION WHILE ON VAPOTHERM 25L 95%. O2 SATS 93%.
[2020-07-30] MEDS: ACETAMINOPHEN 325 MG TABLET PO PRN (19:23)
[2020-07-30] MEDS: RT-ALBUTEROL INHALER HFA (VENTOLIN HFA) 18 GM IH PRN ×2 (20:41→22:10)
[2020-07-31] VITALS (30 sets, daily range): BP systolic 76–143; BP diastolic 59–85
[2020-07-31] MEDS: guaiFENesin SYRUP 100 MG/5 ML 10 ML (ROBITUSSIN SF) PO SCH ×7 (00:18→19:41)
[2020-07-31] MEDS: DexMEDEtomidine PRE MIX 100 ML IV SCH ×3 (00:18→23:16)
[2020-07-31] MEDS: RT-ALBUTEROL INHALER HFA (VENTOLIN HFA) 18 GM IH SCH ×6 (02:46→22:07)
[2020-07-31 03:08] LABS: HEMOGLOBIN 11.5 g/dL (11.5-16.0); MEAN PLATELET VOLUME 9.7 fL (9.0-12.2); WHITE BLOOD COUNT 10.7 10^3/uL (4.3-11.0)
[2020-07-31] MEDS: inSUlin ASPART (NovoLOG) 1 UNIT/0.01 ML (CHARGE PER UNIT) SC SCH ×4 (05:39→19:41)
[2020-07-31] MEDS: VITAMIN D3 125 MCG (5,000 UNITS) CAPSULE PO SCH (08:30)
[2020-07-31] MEDS: ASPIRIN E.C. 81 MG (ECOTRIN) TAB PO SCH (08:30)
[2020-07-31] MEDS: ACETAMINOPHEN 325 MG TABLET PO PRN ×3 (08:51→23:21)
[2020-07-31] MEDS: dexAMETHasone 6 MG TAB (DECADRON) PO SCH (08:51)
[2020-07-31] MEDS: PANTOPRAZOLE 40 MG (PROTONIX) VIAL IV SCH (08:51)
[2020-07-31] MEDS ORDERED: FAMOTIDINE 20MG/2ML IV (PEPCID) IVP SCH (09:00)
--- NOTE | 2020-07-31 09:42 | Physical Therapy Progress Note ---
Therapy Progress Note Patient on BiPap. No orders received. Consulted with RN. Await new orders. CRISTINO JEFFREY PT Jul 31, 2020 09:42
[2020-07-31] MEDS: ENOXAPARIN 40 MG/0.4 ML (LOVENOX) SYR SC SCH (13:54)
--- NOTE | 2020-07-31 14:56 | NUR ---
Note avg PO intake 25% on 07/30. Note pt tolerating supplementation well. Would encourage pt to eat when able. Would recommend continuation of supplementation of Ensure Enlive with meals TID, for increased kcal intake. Provides 350 kcal and 20 g Pro per serving. Will continue to follow and reassess as pt needs, intake, and status change. Yonas Terry MS RD LD [phone] cell
--- NOTE | 2020-07-31 16:51 | Progress Note - Hospitalist ---
Subjective HPI/CC On Admission Date Seen by Provider: Jul 31, 2020 Time Seen by Provider: 10:45 Pt is a 74yoCF who was direct admitted from [facility] care due to COVID19. She states that her beckybadn was diagnosed with COVID on 07/19 and she came back positive the next day as well. She woke up that morning thinking she had pneumonia and had a dry hacking cough. She had a fever of 104.7 this morning prompting her to seek evaluation back at the urgent care. She is on roughly day 7 of symptoms and her sats were 91% at urgent care prompting them to recommend admission. She reports feeling much better now that she is here but continues to have dry cough. Subjective/Events-last exam she reports feeling better today. She is not feeling short of breath. She is wearing her BiPAP. She says she prefers the BiPAP over Vapotherm. She denies any fevers. Objective Exam Vital Signs Vital Signs Date Time Temp Pulse Resp B/P (MAP) Pulse Ox O2 Delivery O2 Flow Rate FiO2 07/31/20 15:39 35.9 07/31/20 14:53 62 31 92 70.00 07/31/20 08:00 NIV Bilevel 70 07/31/20 06:34 126/65 Capillary Refill : Less Than 3 SecondsLess Than 3 Seconds General Appearance: No Apparent Distress, WD/WN, Other (wearing BiPAP) Respiratory: Lungs Clear, Normal Breath Sounds, No Respiratory Distress Cardiovascular: Regular Rate, Rhythm, No Edema, No Murmur Gastrointestinal: Normal Bowel Sounds, Non Tender, Soft Extremity: Normal Inspection, Non Tender, No Pedal Edema Neurologic/Psychiatric: Alert, No Motor/Sensory Deficits, Normal Mood/Affect Results/Procedures Lab Laboratory Tests 07/31/20 02:47 Patient resulted labs reviewed. Imaging: Reviewed Imaging Report Assessment/Plan Assessment and Plan Assess & Plan/Chief Complaint Acute respiratory failure due to COVID-19 Currently on BIPAP Proning as tolerated s/p remdesivir Decadron day 03/16 S/p 1 unit convalescent plasma PT/OT as able DVT ppx: Lovenox Diagnosis/Problems Diagnosis/Problems (1) Acute respiratory failure due to COVID-19 Status: Acute Clinical Quality Measures DVT/VTE Risk/Contraindication: Risk Factor Score Per Nursin RFS Level Per Nursing on Admit: 4+=Very High FEDE,NESTOR M MD Jul 31, 2020 16:51
[2020-07-31] MEDS: ADVAIR HFA 115/21 MCG INHALER 8 GM IH SCH (18:16)
[2020-08-01] VITALS (22 sets, daily range): BP systolic 94–145; BP diastolic 55–89
[2020-08-01] MEDS: guaiFENesin SYRUP 100 MG/5 ML 10 ML (ROBITUSSIN SF) PO SCH ×6 (01:20→21:12)
[2020-08-01 02:50] LABS: HEMOGLOBIN 11.4 g/dL (11.5-16.0); MEAN PLATELET VOLUME 9.7 fL (9.0-12.2); WHITE BLOOD COUNT 10.8 10^3/uL (4.3-11.0)
[2020-08-01] MEDS: RT-ALBUTEROL INHALER HFA (VENTOLIN HFA) 18 GM IH SCH ×6 (02:53→21:29)
[2020-08-01 02:56] LABS: ALBUMIN 3.1 GM/DL (3.2-4.5); CHLORIDE 104 MMOL/L (98-107); POTASSIUM 3.5 MMOL/L (3.6-5.0); SODIUM 135 MMOL/L (135-145)
[2020-08-01 02:57] LABS: CALCIUM 7.6 MG/DL (8.5-10.1)
[2020-08-01 02:58] LABS: GLUCOSE 125 MG/DL (70-105); TOTAL PROTEIN 5.4 GM/DL (6.4-8.2)
[2020-08-01 03:00] LABS: BILIRUBIN,TOTAL 0.7 MG/DL (0.1-1.0); CARBON DIOXIDE 21 MMOL/L (21-32)
[2020-08-01 03:02] LABS: ALKALINE PHOSPHATASE 36 U/L (40-136); CREATININE SERUM 0.54 MG/DL (0.60-1.30); GFR ESTIMATED > 60
[2020-08-01 03:03] LABS: BUN/CREATININE RATIO 43
[2020-08-01 03:05] LABS: ALANINE AMINOTRANSFERASE 26 U/L (0-55)
[2020-08-01 03:15] LABS: PHOSPHORUS 3.7 MG/DL (2.3-4.7)
[2020-08-01 03:16] LABS: MAGNESIUM 2.2 MG/DL (1.6-2.4)
[2020-08-01] MEDS: POTASSIUM CL 10MEQ/50ML IVPB 50 ML IV SCH ×2 (04:02→04:38)
[2020-08-01] MEDS: KCL 20 MEQ TAB (K-DUR) PO SCH (04:02)
[2020-08-01] MEDS: MAGNESIUM 1 GM/100 ML IVPB 100 ML IV SCH (04:02)
[2020-08-01] MEDS: inSUlin ASPART (NovoLOG) 1 UNIT/0.01 ML (CHARGE PER UNIT) SC SCH ×4 (04:03→21:12)
[2020-08-01] MEDS: PANTOPRAZOLE 40 MG (PROTONIX) VIAL IV SCH (07:33)
[2020-08-01] MEDS: ASPIRIN E.C. 81 MG (ECOTRIN) TAB PO SCH (07:33)
[2020-08-01] MEDS: dexAMETHasone 6 MG TAB (DECADRON) PO SCH (07:33)
[2020-08-01] MEDS: VITAMIN D3 125 MCG (5,000 UNITS) CAPSULE PO SCH (07:34)
[2020-08-01] MEDS: ADVAIR HFA 115/21 MCG INHALER 8 GM IH SCH ×2 (08:40→19:04)
[2020-08-01] MEDS: UMECLIDINIUM BROMIDE (INCRUSE ELLIPTA) 7'S IH SCH (08:41)
[2020-08-01] MEDS: DexMEDEtomidine PRE MIX 100 ML IV SCH (10:33)
--- NOTE | 2020-08-01 12:33 | Physical Therapy Progress Note ---
Therapy Progress Note PT needs orders to continue tx with this patient. Nurse notified of this. At this time we do not have orders to continue tx. NEGRO ROBLES PT Aug 01, 2020 12:33
[2020-08-01] MEDS: ENOXAPARIN 40 MG/0.4 ML (LOVENOX) SYR SC SCH (12:58)
--- NOTE | 2020-08-01 14:23 | NUR ---
Note avg PO intake ,25% x3d, per chart review. Continue with supplementation order of Ensure Enlive with meals TID, for increased kcal intake. Would encourage pt to eat when able. Will continue to follow and reassess as pt needs, intake, and status change. Yonas Terry, MS RD LD [phone] cell
--- NOTE | 2020-08-01 15:14 | Progress Note - Hospitalist ---
Subjective HPI/CC On Admission Date Seen by Provider: Aug 01, 2020 Time Seen by Provider: 09:45 Pt is a 74yoCF who [place] [facility] [place] due to COVID[place]. She states that her liatn was diagnosed with COVID on 07/19 and she came back positive the next day as well. She woke up that morning thinking she had pneumonia and had a dry hacking cough. She had a fever of 104.7 this morning prompting her to seek evaluation back at the urgent care. She is on roughly day 7 of symptoms and her sats were 91% at urgent care prompting them to recommend admission. She reports feeling much better now that she is here but continues to have dry cough. Subjective/Events-last exam She remains anxious. She is proning. She has no complaints at this time. Objective Exam Vital Signs Vital Signs Date Time Temp Pulse Resp B/P (MAP) Pulse Ox O2 Delivery O2 Flow Rate FiO2 08/01/20 11:36 36.0 08/01/20 11:30 97 Vapotherm 30.00 80 08/01/20 10:33 102 20 133/74 Capillary Refill : Less Than 3 SecondsLess Than 3 Seconds General Appearance: No Apparent Distress, WD/WN, Anxious Respiratory: Lungs Clear, Normal Breath Sounds, No Respiratory Distress Cardiovascular: Regular Rate, Rhythm, No Edema, No Murmur Gastrointestinal: Normal Bowel Sounds, Non Tender, Soft Extremity: Normal Inspection, Non Tender, No Pedal Edema Neurologic/Psychiatric: Alert, Oriented x3 Skin: Normal Color, Warm/Dry Results/Procedures Lab Laboratory Tests 08/01/20 02:37 Patient resulted labs reviewed. Imaging: Reviewed Imaging Report Assessment/Plan Assessment and Plan Assess & Plan/Chief Complaint Acute respiratory failure due to COVID-19 BIPAP/Vapotherm as needed Proning as tolerated s/p remdesivir Decadron day / S/p 1 unit convalescent plasma PT/OT DVT ppx: Lovenox Diagnosis/Problems Diagnosis/Problems (1) Acute respiratory failure due to COVID-19 Status: Acute Clinical Quality Measures DVT/VTE Risk/Contraindication: Risk Factor Score Per Nursin RFS Level Per Nursing on Admit: 4+=Very High NESTOR MISTRY MD Aug 01, 2020 15:14
--- NOTE | 2020-08-01 16:20 | Occupational Therapy Eval ---
OT Evaluation-General/PLF Medical Diagnosis Admission Date Jul 24, 2020 at 13:38 Medical Diagnosis: Covid 19 Onset Date: Jul 24, 2020 Therapy Diagnosis Therapy Diagnosis: decreased ADL status, weakness Precautions Precautions/Isolations: Airborne Isolation, Fall Prevention Referral Physician: Maricel Referral Reason: Evaluation/Treatment Medical History Current History Per H&P: "Pt is a 74yoCF who was direct admitted from [facility] due to COVID19. She states that her husbadn was diagnosed with COVID on 07/19 and she came back positive the next day as well. She woke up that morning thinking she had pneumonia and had a dry hacking cough. She had a fever of 104.7 this morning prompting her to seek evaluation back at the urgent care." Reviewed History: Yes Social History Home: Single Level Current Living Status: Spouse ADL-Prior Level of Function SCALE: Activities may be completed with or without assistive devices. 4-Pxzqsoewxd-rapbwwy completes the activity by him/herself with no assistance from a helper. 5-Set-up or Clean-up Assistance-helper sets up or cleans up; patient completes activity. [place] assists only prior to or following the activity. 4-Supervision or Touching Assistance-helper provides verbal cues and/or touching/steadying and/or contact guard assistance as patient completes activity. Assistance may be provided throughout the activity or intermittently. 3-Partial/Moderate Assistance-helper does LESS THAN HALF the effort. [place] lifts, holds or supports trunk or limbs, but provides less than half the effort. 2-Substantial/Maximal Assistance-helper does MORE THAN HALF the effort. [place] lifts or holds trunk or limbs and provides more than half the effort. 5-Esnqgmahb-noydht does ALL the effort. Patient does none of the effort to complete the activity. Or, the assistance of 2 or more helpers is required for the patient to complete the activity. If activity was not attempted, code reason: 7-Patient Refused. 9-Not Applicable-not attempted and the patient did not perform the activity before the current illness, exacerbation or injury. 10-Not Attempted due to Environmental Limitations-(lack of equipment, weather restraints, etc.). 88-Not Attempted due to Medical Conditions or Safety Concerns. ADL PLOF Comments Pt reports being independent with all ADLS and functional mobility at OF, no AE/AD. 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 Self Care: Independent Functional Cognition: Independent OT Current Status Subjective Pt laying prone in bed, agreeable to OT Tx. Pt does not verbalize pain but indicates she feels weak Mental Status/Objective Patient Orientation: Person, Place, Time, Situation Attachments: Humphrey Catheter, IV, Oxygen, Telemetry Current Upper Extremity ROM WFL, BUE shoulder flexion to approx 150 degrees, able to touch back of head with hands. Upper Extremity Coordination WFL Upper Extremity Sensation slight tingling in fingertips Upper Extremity Strength grossly 3+/5 ADL-Treatment Eating (QC): 6 (Per pt report she has been able to open her Ensures and drink independently.) Other Treatments Pt laying in prone, transferred to sit EOB without assistance. Pt able to sit EOB for ~5 mins, O2 sat dropping to 86%, OT educated and cued pt on pursed lip breathing. After a few mins, pt's O2 increased to low 90's. Pt able to parti cipate in UE screen. Pt indicates she is typically a mouth breather, O2 dropping again to upper 80%s. Pt returned to prone on her own, O2 increasing to low 90%'s. No standing trial complete on this date due to decrease in O2 sat. Post OT tx, pt laying in bed, call light in reach and all needs met. Education OT Patient Education: Correct positioning, Modified ADL techniques, Progress toward Goal/Update tx plan, Purpose of tx/functional activities, Rehab process, Safety issues Teaching Recipient: Patient Teaching Methods: Discussion Response to Teaching: Verbalize Understanding OT Prison Goals Upper Cutter Machine Goals Time Frame: Aug 24, 2020 Eating (QC): 6 Oral Hygiene (QC): 6 Toileting Hygiene (QC): 4 Shower/Bathe Self (QC): 4 Upper Body Dressing (QC): 5 Lower Body Dressing (QC): 4 On/Off Footwear (QC): 4 Additional Goals: 1-Demonstrate ADL Tasks, 2-Verbalize Understanding, 3- ImproveStrength/Mumtaz 1=Demonstrate adherence to instructed precautions during ADL tasks. 2=Patient will verbalize/demonstrate understanding of assistive devices/modifications for ADL. 3=Patient will improve strength/tolerance for activity to enable patient to perform ADL's. OT Education/Plan Problem List/Assessment Assessment: Decreased Activ Tolerance, Decreased UE Strength, Impaired Funct Balance, Impaired I ADL's, Impaired Self-Care Skills Discharge Recommendations Plan/Recommendations: Continue POC Therapy Discharge Recommendati: Scheduled Assistance, Home & Family, Post Acute OT Treatment Plan/Plan of Care Patient would benefit from OT for education, treatment and training to promote independence in ADL's, mobility, safety and/or upper extremity function for ADL's. Plan of Care: ADL Retraining, Functional Mobility, UE Funct Exercise/Act Treatment Duration: Aug 24, 2020 Frequency: 5 times per week Estimated Hrs Per Day: .25 hour per day Rehab Potential: Fair Time/GCodes Start Time: 15:49 Stop Time: 16:04 Total Time Billed (hr/min): 15 Billed Treatment Time 1, KIRBY CHRISTOPHER OT Aug 01, 2020 16:20
--- NOTE | 2020-08-01 16:21 | Physical Therapy Evaluation ---
PT Evaluation-General Medical Diagnosis Admission Date Jul 24, 2020 at 13:38 Medical Diagnosis: Covid 19 Onset Date: Jul 24, 2020 Therapy Diagnosis Therapy Diagnosis: impaired mobility, strength, endurance Precautions Precautions/Isolations: Airborne Isolation, Fall Prevention Referral Physician: Prabhakar Reason for Referral: Evaluation/Treatment Medical History Reviewed History: Yes Social History Home: Single Level Current Living Status: Spouse Prior Prior Level of Function SCALE: Activities may be completed with or without assistive devices. 8-Eupuetcfbu-moctlpr completes the activity by him/herself with no assistance from a helper. 5-Set-up or Clean-up Assistance-helper sets up or cleans up; patient completes activity. [place] assists only prior to or following the activity. 4-Supervision or Touching Assistance-helper provides verbal cues and/or touching/steadying and/or contact guard assistance as patient completes activity. Assistance may be provided throughout the activity or intermittently. 3-Partial/Moderate Assistance-helper does LESS THAN HALF the effort. [place] lifts, holds or supports trunk or limbs, but provides less than half the effort. 2-Substantial/Maximal Assistance-helper does MORE THAN HALF the effort. [place] lifts or holds trunk or limbs and provides more than half the effort. 3-Zxxhwzzfs-ilqsoa does ALL the effort. Patient does none of the effort to complete the activity. Or, the assistance of 2 or more helpers is required for the patient to complete the activity. If activity was not attempted, code reason: 7-Patient Refused. 9-Not Applicable-not attempted and the patient did not perform the activity before the current illness, exacerbation or injury. 10-Not Attempted due to Environmental Limitations-(lack of equipment, weather restraints, etc.). 88-Not Attempted due to Medical Conditions or Safety Concerns. Bed Mobility: 6 Transfers (B,C,W/C): 6 Gait: 6 Stairs: 6 Indoor Mobility (Ambulation): Independent Stairs: Independent Prior Devices Use: None PT Evaluation-Current Subjective Patient in bed pre tx, prone, agrees to PT, has no complaints of pain. Patient would like to have a fan because she is hot but nursing says she cannot have one. Thermostat was turned down a little. Pt/Family Goals "to get better" Objective Patient Orientation: Person, Place, Situation Attachments: SCD's, Oxygen, Humphrey Catheter, IV vapotherm ROM/Strength ROM Lower Extremities WNL Strength Lower Extremities 4+/5 gross BLE Integumentary/Posture Bowel Incontinence: No Bladder Incontinence: No Sensory Vision: Functional Hearing: Functional Sensation Right Lower Extremit: Intact Sensation Left Lower Extremity: Intact Transfers Roll Left to Right (QC): 6 Sit to Lying (QC): 6 Lying to Sitting/Side of Bed(Q: 6 Patient was able to go from prone to sitting on the side of the bed without assistance. After sitting on the side of the bed her O2 sent down to 86%, came back to 91% after purse lip breathing, performed a couple of exercises sitting on the side of the bed, went back down into the 80"s, and came back up with purse lip breathing. Patient was able to lay down prone again on her own. BLE seated exercises x20 (AP, LAQ) Balance Sitting Static: Normal Sitting Dynamic: Normal Assessment/Needs Patient has impaired mobility, strength, endurance. She gets SOB with activity and O2 goes into the upper 80's Rehab Potential: Fair PT Care Home Goals Wrister Goals PT Care Home Goals Time Frame: Aug 08, 2020 Roll Left & Right (QC): 6 Sit to Lying (QC): 6 Lying-Sitting on Side/Bed(QC): 6 Sit to Stand (QC): 6 Chair/Zjj-ko-Scpou Xfer(QC): 6 Toilet Transfer (QC): 6 Car Transfer (QC): 6 Does the Patient Walk: Yes Walk 10 feet (QC): 6 Walk 50ft with 2 Turns (QC): 6 Walk 150 ft (QC): 6 Walking 10ft on Uneven Surface: 6 1 Step (curb) (QC): 6 4 Steps (QC): 6 12 Steps (QC): 9 PT Plan Problem List Problem List: Activity Tolerance, Functional Strength, Safety, Balance, Gait, Transfer Treatment/Plan Treatment Plan: Continue Plan of Care Treatment Plan: Education, Functional Activity Mumtaz, Functional Strength, Gait, Safety, Therapeutic Exercise, Transfers Treatment Duration: Aug 08, 2020 Frequency: 6 times per week Estimated Hrs Per Day: .25 hour per day Patient and/or Family Agrees t: Yes Safety Risks/Education Patient Education: Correct Positioning, Safety Issues Teaching Recipient: Patient Teaching Methods: Demonstration, Discussion Response to Teaching: Reinforcement Needed Discharge Recommendations Plan Patient will perform bed mobility and transfer training, balance and endurance training, functional strengthening, stair training, gait training, and education, to improve functional mobility and independence at home. Therapy Discharge Recommendati: Scheduled Assistance, Home & Family, Post Acute PT Time/GCodes Time In: 1549 Time Out: 1604 Total Billed Treatment Time: 15 Total Billed Treatment 1 visit DK 15' NEGRO ROBLES PT Aug 01, 2020 16:21
[2020-08-01] MEDS: ACETAMINOPHEN 325 MG TABLET PO PRN (21:14)
[2020-08-02] VITALS (23 sets, daily range): BP systolic 76–140; BP diastolic 45–94
[2020-08-02] MEDS: guaiFENesin SYRUP 100 MG/5 ML 10 ML (ROBITUSSIN SF) PO SCH ×6 (02:21→20:10)
[2020-08-02] MEDS: RT-ALBUTEROL INHALER HFA (VENTOLIN HFA) 18 GM IH SCH ×4 (02:32→14:15)
[2020-08-02] MEDS: ONDANSETRON 4 MG/2 ML (SDV) Z0FRAN IV PRN (03:50)
[2020-08-02 04:25] LABS: HEMOGLOBIN 12.7 g/dL (11.5-16.0); MEAN PLATELET VOLUME 9.9 fL (9.0-12.2); WHITE BLOOD COUNT 13.9 10^3/uL (4.3-11.0)
[2020-08-02 04:38] LABS: ALBUMIN 3.3 GM/DL (3.2-4.5); CHLORIDE 100 MMOL/L (98-107); POTASSIUM 3.3 MMOL/L (3.6-5.0); SODIUM 133 MMOL/L (135-145)
[2020-08-02 04:40] LABS: GLUCOSE 121 MG/DL (70-105)
[2020-08-02 04:41] LABS: TOTAL PROTEIN 5.8 GM/DL (6.4-8.2)
[2020-08-02 04:42] LABS: CARBON DIOXIDE 22 MMOL/L (21-32)
[2020-08-02 04:44] LABS: ALKALINE PHOSPHATASE 43 U/L (40-136); CREATININE SERUM 0.57 MG/DL (0.60-1.30); GFR ESTIMATED > 60
[2020-08-02 04:45] LABS: BUN/CREATININE RATIO 40
[2020-08-02 04:47] LABS: ALANINE AMINOTRANSFERASE 31 U/L (0-55)
[2020-08-02] MEDS: DexMEDEtomidine PRE MIX 100 ML IV SCH (06:11)
[2020-08-02] MEDS: POTASSIUM CL 10MEQ/50ML IVPB 50 ML IV SCH ×5 (06:13→08:30)
[2020-08-02] MEDS: MAGNESIUM 1 GM/100 ML IVPB 100 ML IV SCH (06:13)
[2020-08-02] MEDS: inSUlin ASPART (NovoLOG) 1 UNIT/0.01 ML (CHARGE PER UNIT) SC SCH ×4 (06:14→20:09)
[2020-08-02] MEDS: KCL 20 MEQ TAB (K-DUR) PO SCH (06:14)
[2020-08-02] MEDS: ADVAIR HFA 115/21 MCG INHALER 8 GM IH SCH ×2 (06:59→20:46)
[2020-08-02] MEDS: UMECLIDINIUM BROMIDE (INCRUSE ELLIPTA) 7'S IH SCH (07:01)
[2020-08-02] MEDS: VITAMIN D3 125 MCG (5,000 UNITS) CAPSULE PO SCH (08:56)
[2020-08-02] MEDS: ASPIRIN E.C. 81 MG (ECOTRIN) TAB PO SCH (08:57)
[2020-08-02] MEDS: PANTOPRAZOLE 40 MG (PROTONIX) VIAL IV SCH (08:57)
[2020-08-02] MEDS: dexAMETHasone 6 MG TAB (DECADRON) PO SCH (08:57)
--- NOTE | 2020-08-02 09:36 | Physical Therapy Progress Note ---
Therapy Progress Note Patient declined therapy at this time. She is currently in prone position. Note increase in WBC. Will attempt later. 1 ref CRISTINO JEFFREY PT Aug 02, 2020 09:36
--- NOTE | 2020-08-02 10:45 | Physical Therapy Daily Note ---
PT Daily Note-Current Subjective Patient in prone position and agrees to PT. Mental Status Patient Orientation: Normal For Age Attachments: Oxygen (Vapotherm), Humphrey Catheter, IV Transfers SCALE: Activities may be completed with or without assistive devices. 4-Oowduwvjeo-bweuyup completes the activity by him/herself with no assistance from a helper. 5-Set-up or Clean-up Assistance-helper sets up or cleans up; patient completes activity. [place] assists only prior to or following the activity. 4-Supervision or Touching Assistance-helper provides verbal cues and/or touching/steadying and/or contact guard assistance as patient completes activity. Assistance may be provided throughout the activity or intermittently. 3-Partial/Moderate Assistance-helper does LESS THAN HALF the effort. [place] lifts, holds or supports trunk or limbs, but provides less than half the effort. 2-Substantial/Maximal Assistance-helper does MORE THAN HALF the effort. [place] lifts or holds trunk or limbs and provides more than half the effort. 8-Wixfghdmu-oeizvb does ALL the effort. Patient does none of the effort to complete the activity. Or, the assistance of 2 or more helpers is required for the patient to complete the activity. If activity was not attempted, code reason: 7-Patient Refused. 9-Not Applicable-not attempted and the patient did not perform the activity before the current illness, exacerbation or injury. 10-Not Attempted due to Environmental Limitations-(lack of equipment, weather restraints, etc.). 88-Not Attempted due to Medical Conditions or Safety Concerns. Roll Left & Right (QC): 6 Sit to Lying (QC): 6 Lying to Sitting/Side of Bed(Q: 6 Exercises Seated Therapy Exercises: Ankle pumps, Long arc quads, Hip flexion Seated Reps: 15 Assessment Patient SAO2 decreases with minimal activity, however, improve with time. Patient tolerated treatment and returned to prone position. PT Guest Services Officer Goals Guest Services Officer Goals PT Custodial Goals Time Frame: Aug 08, 2020 Roll Left & Right (QC): 6 Sit to Lying (QC): 6 Lying-Sitting on Side/Bed(QC): 6 Sit to Stand (QC): 6 Chair/Lwo-zv-Egekz Xfer(QC): 6 Toilet Transfer (QC): 6 Car Transfer (QC): 6 Does the Patient Walk: Yes Walk 10 feet (QC): 6 Walk 50ft with 2 Turns (QC): 6 Walk 150 ft (QC): 6 Walking 10ft on Uneven Surface: 6 1 Step (curb) (QC): 6 4 Steps (QC): 6 12 Steps (QC): 9 PT Plan Treatment/Plan Treatment Plan: Continue Plan of Care Treatment Plan: Education, Functional Activity Mumtaz, Functional Strength, G ait, Safety, Therapeutic Exercise, Transfers Treatment Duration: Aug 08, 2020 Frequency: 6 times per week Estimated Hrs Per Day: .25 hour per day Patient and/or Family Agrees t: Yes Time/GCodes Time In: 1005 Time Out: 1021 Total Billed Treatment Time: 16 Total Billed Treatment 1 visit EX 16 min CRISTINO JEFFREY PT Aug 02, 2020 10:45
[2020-08-02] MEDS: ENOXAPARIN 40 MG/0.4 ML (LOVENOX) SYR SC SCH (12:14)
--- NOTE | 2020-08-02 12:31 | Occupational Ther Daily Note ---
OT Current Status-Daily Note Subjective Pt. does not report pain. Mental Status/Objective Patient Orientation: Person, Place Attachments: Humphrey Catheter, IV, Oxygen, Telemetry ADL-Treatment Therapy Code Descriptions/Definitions Functional [place] Measure: 0=Not Assessed/NA 4=Minimal Assistance 1=Total Assistance 5=Supervision or Setup 2=Maximal Assistance 6=Modified [place] 3=Moderate Assistance 7=Complete IndependenceSCALE: Activities may be completed with or without assistive devices. 3-Orcbvaczhg-leueznl completes the activity by him/herself with no assistance from a helper. 5-Set-up or Clean-up Assistance-helper sets up or cleans up; patient completes activity. [place] assists only prior to or following the activity. 4-Supervision or Touching Assistance-helper provides verbal cues and/or touch ing/steadying and/or contact guard assistance as patient completes activity. Assistance may be provided throughout the activity or intermittently. 3-Partial/Moderate Assistance-helper does LESS THAN HALF the effort. [place] lifts, holds or supports trunk or limbs, but provides less than half the effort. 2-Substantial/Maximal Assistance-helper does MORE THAN HALF the effort. [place] lifts or holds trunk or limbs and provides more than half the effort. 8-Ydxqqhlqa-uslcsn does ALL the effort. Patient does none of the effort to complete the activity. Or, the assistance of 2 or more helpers is required for the patient to complete the activity. If activity was not attempted, code reason: 7-Patient Refused. 9-Not Applicable-not attempted and the patient did not perform the activity before the current illness, exacerbation or injury. 10-Not Attempted due to Environmental Limitations-(lack of equipment, weather restraints, etc.). 88-Not Attempted due to Medical Conditions or Safety Concerns. On/Off Footwear: 2 Toileting Hygiene (QC): 1 Toilet Transfer (QC): 3 (Mod assist) Other Treatment Pt. in bed. Nursing and OT discuss pt. being able to see spouse, who is also in ICU room. Pt. transfers supine-sit with SBA. Pt. has multiple lines and tubes that have to be managed and adjusted. Pt. indicates that she has to use toilet immediately. Pt. stands at walker with min assist, and is able to transfer to toilet with mod assist overall. Pt. has BM, and requires dependent assistance to cleanse. Transfers to wheelchair with min assist, and is taken with assistance of two ICU nurses and this therapist to spouse's room. Nursing adjusted monitors and vapotherm, and able to manage this once in spouse's room. Pt. able to talk with spouse for approximately 10 minutes, (no charge.) Spouse medically complicated, and pt. would like to let him rest. Pt. taken back to room and transferred to bed with min assist. Pt. is able to turn self in bed and all monitors re-applied and pt. assessed. All needs met. Education OT Patient Education: Correct positioning, Modified ADL techniques, Progress toward Goal/Update tx plan, Purpose of tx/functional activities, Reviewed precautions, Rehab process, Transfer techniques Teaching Recipient: Patient Teaching Methods: Demonstration, Discussion Response to Teaching: Verbalize Understanding, Return Demonstration, Reinforcement Needed OT Custodial Goals Manager Non Profit Goals Time Frame: Aug 24, 2020 Eating (QC): 6 Oral Hygiene (QC): 6 Toileting Hygiene (QC): 4 Shower/Bathe Self (QC): 4 Upper Body Dressing (QC): 5 Lower Body Dressing (QC): 4 On/Off Footwear (QC): 4 Additional Goals: 1-Demonstrate ADL Tasks, 2-Verbalize Understanding, 3- ImproveStrength/Mumtaz 1=Demonstrate adherence to instructed precautions during ADL tasks. 2=Patient will verbalize/demonstrate understanding of assistive devices/modifications for ADL. 3=Patient will improve strength/tolerance for activity to enable patient to perform ADL's. OT Education/Plan Problem List/Assessment Assessment: Decreased Activ Tolerance, Dependent Transfers, Impaired Bed Mobility, Impaired Funct Balance, Impaired I ADL's, Impaired Self-Care Skills Discharge Recommendations Plan/Recommendations: Continue POC Therapy Discharge Recommendati: Post Acute OT Treatment Plan/Plan of Care Treatment,Training & Education: Yes Patient would benefit from OT for education, treatment and training to promote i ndependence in ADL's, mobility, safety and/or upper extremity function for ADL's. Plan of Care: ADL Retraining, Functional Mobility, UE Funct Exercise/Act Treatment Duration: Aug 24, 2020 Frequency: 5 times per week Estimated Hrs Per Day: .25 hour per day Agreement: Yes Rehab Potential: Fair Time/GCodes Start Time: 10:30 Stop Time: 11:25 Total Time Billed (hr/min): 55 Billed Treatment Time 1, ADL x 45minutes Treatment total of 55 minutes, but 10 minutes not accounted for due to pt. visiting with spouse. EMERALD STOVER OT Aug 02, 2020 12:31
--- NOTE | 2020-08-02 14:14 | Progress Note - Hospitalist ---
Subjective HPI/CC On Admission Date Seen by Provider: Aug 02, 2020 Time Seen by Provider: 10:10 Pt is a 74yoCF who was direct admitted from [facility] Urgent care due to COVID19. She states that her beckybadn was diagnosed with COVID on 07/19 and she came back positive the next day as well. She woke up that morning thinking she had pneumonia and had a dry hacking cough. She had a fever of 104.7 this morning prompting her to seek evaluation back at the urgent care. She is on roughly day 7 of symptoms and her sats were 91% at urgent care prompting them to recommend admission. She reports feeling much better now that she is here but continues to have dry cough. Subjective/Events-last exam She says she is not feeling short of breath when she is lying down. She is not having fevers. She is still not feeling well. She is working with physical therapy. Objective Exam Vital Signs Vital Signs Date Time Temp Pulse Resp B/P (MAP) Pulse Ox O2 Delivery O2 Flow Rate FiO2 08/02/20 12:52 36.9 08/02/20 12:37 90 08/02/20 12:00 19 107/56 (73) 94 Vapotherm 30.00 90.00 08/02/20 08:45 35 Capillary Refill : Less Than 3 SecondsLess Than 3 Seconds General Appearance: No Apparent Distress, WD/WN Respiratory: Lungs Clear, Normal Breath Sounds, No Respiratory Distress, Other (wearing Vapotherm) Cardiovascular: Regular Rate, Rhythm, No Edema, No Murmur Gastrointestinal: Normal Bowel Sounds, Non Tender, Soft Extremity: Normal Inspection, Non Tender, No Pedal Edema Neurologic/Psychiatric: Alert, Oriented x3, No Motor/Sensory Deficits Skin: Normal Color, Warm/Dry Results/Procedures Lab Laboratory Tests 08/02/20 03:58 Patient resulted labs reviewed. Imaging: Reviewed Imaging Report Assessment/Plan Assessment and Plan Assess & Plan/Chief Complaint Acute respiratory failure due to COVID-19 BIPAP/Vapotherm as needed, oxygen need slowly improving Proning as tolerated s/p remdesivir Decadron day 05/17 S/p 1 unit convalescent plasma Hypokalemia Monitor and replace as needed Debility PT/OT DVT ppx: Lovenox Diagnosis/Problems Diagnosis/Problems (1) Acute respiratory failure due to COVID-19 Status: Acute (2) Debility Status: Acute (3) Hypokalemia Status: Acute Clinical Quality Measures DVT/VTE Risk/Contraindication: Risk Factor Score Per Nursin RFS Level Per Nursing on Admit: 4+=Very High NESTOR MISTRY MD Aug 02, 2020 14:14
[2020-08-02] MEDS: ACETAMINOPHEN 325 MG TABLET PO PRN (17:48)
[2020-08-02] MEDS ORDERED: NS IV 500 ML 500 ML ONE (21:50)
[2020-08-02] MEDS ORDERED: NS IV 500 ML 500 ML IV SCH (22:00)
[2020-08-03] VITALS (24 sets, daily range): BP systolic 90–119; BP diastolic 45–70
[2020-08-03] MEDS: guaiFENesin SYRUP 100 MG/5 ML 10 ML (ROBITUSSIN SF) PO SCH ×6 (00:13→19:38)
[2020-08-03] MEDS: DexMEDEtomidine PRE MIX 100 ML IV SCH ×3 (01:28→19:47)
[2020-08-03] MEDS: RT-ALBUTEROL INHALER HFA (VENTOLIN HFA) 18 GM IH SCH ×4 (02:35→21:32)
[2020-08-03] MEDS: ACETAMINOPHEN 325 MG TABLET PO PRN ×3 (03:39→19:47)
[2020-08-03 03:45] LABS: MEAN PLATELET VOLUME 10.7 fL (9.0-12.2); WHITE BLOOD COUNT 12.7 10^3/uL (4.3-11.0)
[2020-08-03 04:00] LABS: ALBUMIN 3.1 GM/DL (3.2-4.5); CHLORIDE 99 MMOL/L (98-107); POTASSIUM 4.2 MMOL/L (3.6-5.0); SODIUM 132 MMOL/L (135-145)
[2020-08-03 04:01] LABS: CALCIUM 7.8 MG/DL (8.5-10.1)
[2020-08-03 04:03] LABS: GLUCOSE 132 MG/DL (70-105); TOTAL PROTEIN 5.5 GM/DL (6.4-8.2)
[2020-08-03 04:04] LABS: BILIRUBIN,TOTAL 0.7 MG/DL (0.1-1.0); CARBON DIOXIDE 20 MMOL/L (21-32)
[2020-08-03 04:06] LABS: ALKALINE PHOSPHATASE 38 U/L (40-136); CREATININE SERUM 0.57 MG/DL (0.60-1.30); GFR ESTIMATED > 60; PHOSPHORUS 2.5 MG/DL (2.3-4.7)
[2020-08-03 04:07] LABS: BUN/CREATININE RATIO 32
[2020-08-03 04:09] LABS: ALANINE AMINOTRANSFERASE 24 U/L (0-55)
[2020-08-03] MEDS: POTASSIUM CL 10MEQ/50ML IVPB 50 ML IV SCH (04:11)
[2020-08-03] MEDS: KCL 20 MEQ TAB (K-DUR) PO SCH (04:11)
[2020-08-03] MEDS: MAGNESIUM 1 GM/100 ML IVPB 100 ML IV SCH (04:11)
[2020-08-03] MEDS: inSUlin ASPART (NovoLOG) 1 UNIT/0.01 ML (CHARGE PER UNIT) SC SCH ×4 (04:13→19:40)
[2020-08-03] MEDS: UMECLIDINIUM BROMIDE (INCRUSE ELLIPTA) 7'S IH SCH (07:25)
[2020-08-03] MEDS: ADVAIR HFA 115/21 MCG INHALER 8 GM IH SCH ×2 (07:25→21:32)
[2020-08-03] MEDS: dexAMETHasone 6 MG TAB (DECADRON) PO SCH (07:35)
[2020-08-03] MEDS: ASPIRIN E.C. 81 MG (ECOTRIN) TAB PO SCH (07:35)
[2020-08-03] MEDS: PANTOPRAZOLE 40 MG (PROTONIX) VIAL IV SCH (07:35)
[2020-08-03] MEDS: VITAMIN D3 125 MCG (5,000 UNITS) CAPSULE PO SCH (07:35)
--- NOTE | 2020-08-03 11:39 | Physical Therapy Daily Note ---
PT Daily Note-Current Subjective Patient in bed pre tx, agrees to PT, has no complaints of pain. Appearance Patient in recliner post tx with nurse call, phone, tray, all needs met. Mental Status Patient Orientation: Person, Place, Situation Attachments: Oxygen, Humphrey Catheter, IV vapotherm Transfers SCALE: Activities may be completed with or without assistive devices. 0-Dqxdzxhsxa-lqdiqex completes the activity by him/herself with no assistance from a helper. 5-Set-up or Clean-up Assistance-helper sets up or cleans up; patient completes activity. [place] assists only prior to or following the activity. 4-Supervision or Touching Assistance-helper provides verbal cues and/or touching/steadying and/or contact guard assistance as patient completes activity. Assistance may be provided throughout the activity or intermittently. 3-Partial/Moderate Assistance-helper does LESS THAN HALF the effort. [place] lifts, holds or supports trunk or limbs, but provides less than half the effort. 2-Substantial/Maximal Assistance-helper does MORE THAN HALF the effort. [place] lifts or holds trunk or limbs and provides more than half the effort. 4-Iqwtgwhyn-ncfgrf does ALL the effort. Patient does none of the effort to complete the activity. Or, the assistance of 2 or more helpers is required for the patient to complete the activity. If activity was not attempted, code reason: 7-Patient Refused. 9-Not Applicable-not attempted and the patient did not perform the activity before the current illness, exacerbation or injury. 10-Not Attempted due to Environmental Limitations-(lack of equipment, weather restraints, etc.). 88-Not Attempted due to Medical Conditions or Safety Concerns. Roll Left & Right (QC): 6 Lying to Sitting/Side of Bed(Q: 6 Sit to Stand (QC): 3 Chair/Sha-yp-Vgrvc Xfer(QC): 3 Patient was able to stand and ambulate about 5' to a recliner, min assist due to impaired balance. After ambulating and sitting into the recliner her O2 was 95%. Exercises Seated Therapy Exercises: Ankle pumps, Long arc quads Seated Reps: 20 Treatments bed mobility and transfers, ambulation, LE exercise Assessment Current Status: Fair Progress patient was able to get out of the bed and ambulate to a recliner while keeping O2 above 90% PT Motor Assembly Supervisor Goals Correction Goals PT Motor Assembly Supervisor Goals Time Frame: Aug 08, 2020 Roll Left & Right (QC): 6 Sit to Lying (QC): 6 Lying-Sitting on Side/Bed(QC): 6 Sit to Stand (QC): 6 Chair/Qmk-fk-Byhvv Xfer(QC): 6 Toilet Transfer (QC): 6 Car Transfer (QC): 6 Does the Patient Walk: Yes Walk 10 feet (QC): 6 Walk 50ft with 2 Turns (QC): 6 Walk 150 ft (QC): 6 Walking 10ft on Uneven Surface: 6 1 Step (curb) (QC): 6 4 Steps (QC): 6 12 Steps (QC): 9 PT Plan Problem List Problem List: Activity Tolerance, Functional Strength, Safety, Balance, Gait, Transfer Treatment/Plan Treatment Plan: Continue Plan of Care Treatment Plan: Education, Functional Activity Mumtaz, Functional Strength, Gait, Safety, Therapeutic Exercise, Transfers Treatment Duration: Aug 08, 2020 Frequency: 6 times per week Estimated Hrs Per Day: .25 hour per day Patient and/or Family Agrees t: Yes Safety Risks/Education Patient Education: Gait Training, Transfer Techniques, Correct Positioning, Safety Issues Teaching Recipient: Patient Teaching Methods: Demonstration, Discussion Response to Teaching: Reinforcement Needed Time/GCodes Time In: 1107 Time Out: 1120 Total Billed Treatment Time: 13 Total Billed Treatment 1 visit FA NEGRO ASCENCIO PT Aug 03, 2020 11:39
--- NOTE | 2020-08-03 11:50 | Occupational Ther Daily Note ---
OT Current Status-Daily Note Subjective Pt AxO. Pt agrees to OT tx session. Pt states excitement that she will see again today. Pt denies pain. Mental Status/Objective Patient Orientation: Person, Place, Situation Attachments: Humphrey Catheter, IV, Oxygen (biPap), Telemetry ADL-Treatment Therapy Code Descriptions/Definitions Functional [place] Measure: 0=Not Assessed/NA 4=Minimal Assistance 1=Total Assistance 5=Supervision or Setup 2=Maximal Assistance 6=Modified [place] 3=Moderate Assistance 7=Complete IndependenceSCALE: Activities may be completed with or without assistive devices. 8-Firbwbwxfr-omzyhxs completes the activity by him/herself with no assistance from a helper. 5-Set-up or Clean-up Assistance-helper sets up or cleans up; patient completes activity. [place] assists only prior to or following the activity. 4-Supervision or Touching Assistance-helper provides verbal cues and/or touching/steadying and/or contact guard assistance as patient completes activity. Assistance may be provided throughout the activity or intermittently. 3-Partial/Moderate Assistance-helper does LESS THAN HALF the effort. [place] lifts, holds or supports trunk or limbs, but provides less than half the effort. 2-Substantial/Maximal Assistance-helper does MORE THAN HALF the effort. [place] lifts or holds trunk or limbs and provides more than half the effort. 4-Cqktptljp-ffmfhs does ALL the effort. Patient does none of the effort to complete the activity. Or, the assistance of 2 or more helpers is required for the patient to complete the activity. If activity was not attempted, code reason: 7-Patient Refused. 9-Not Applicable-not attempted and the patient did not perform the activity before the current illness, exacerbation or injury. 10-Not Attempted due to Environmental Limitations-(lack of equipment, weather restraints, etc.). 88-Not Attempted due to Medical Conditions or Safety Concerns. Eating (QC): 6 Other Treatment Pt supine to sit SBA, 02 monitored at 94%. Sit to stand with lines situated with CGA. Pt LOB 1x with assist to right. Pt ambulates with MAINT MECHANIC to recliner (~4 steps). Pt's 02 95% upon sit. Pt completes exercises with PT as OT monitors vitals- 02 rises to 97%. Pt sits with all needs met, call light in reach. Education OT Patient Education: Correct positioning, Purpose of tx/functional activities, Safety issues, Transfer techniques Teaching Recipient: Patient Teaching Methods: Demonstration, Discussion Response to Teaching: Verbalize Understanding, Return Demonstration OT Border Patrol Agent Goals Fdc Goals Time Frame: Aug 24, 2020 Eating (QC): 6 Oral Hygiene (QC): 6 Toileting Hygiene (QC): 4 Shower/Bathe Self (QC): 4 Upper Body Dressing (QC): 5 Lower Body Dressing (QC): 4 On/Off Footwear (QC): 4 Additional Goals: 1-Demonstrate ADL Tasks, 2-Verbalize Understanding, 3- ImproveStrength/Mumtaz 1=Demonstrate adherence to instructed precautions during ADL tasks. 2=Patient will verbalize/demonstrate understanding of assistive devices/modifications for ADL. 3=Patient will improve strength/tolerance for activity to enable patient to perform ADL's. OT Education/Plan Problem List/Assessment Assessment: Decreased Activ Tolerance, Decreased UE Strength, Dependent Transfers, Impaired Funct Balance, Impaired I ADL's, Impaired Self-Care Skills Discharge Recommendations Plan/Recommendations: Continue POC Therapy Discharge Recommendati: Home & Family, Post Acute OT Treatment Plan/Plan of Care Treatment,Training & Education: Yes Patient would benefit from OT for education, treatment and training to promote independence in ADL's, mobility, safety and/or upper extremity function for ADL's. Plan of Care: ADL Retraining, Functional Mobility, UE Funct Exercise/Act Treatment Duration: Aug 24, 2020 Frequency: 5 times per week Estimated Hrs Per Day: .25 hour per day Agreement: Yes Rehab Potential: Fair Time/GCodes Start Time: 11:07 Stop Time: 11:20 Total Time Billed (hr/min): 13 Billed Treatment Time 1, FA (13) JOYCE BLAIR OTR Aug 03, 2020 11:50
[2020-08-03] MEDS ORDERED: ALPRAZolam 0.25 MG (XANAX) TAB PO PRN (12:45)
--- NOTE | 2020-08-03 12:57 | Progress Note - Hospitalist ---
Subjective HPI/CC On Admission Date Seen by Provider: Aug 03, 2020 Time Seen by Provider: 09:45 Pt is a 74yoCF who was direct admitted from [facility] Urgent care due to COVID19. She states that her beckybadn was diagnosed with COVID on 07/19 and she came back positive the next day as well. She woke up that morning thinking she had pneumonia and had a dry hacking cough. She had a fever of 104.7 this morning prompting her to seek evaluation back at the urgent care. She is on roughly day 7 of symptoms and her sats were 91% at urgent care prompting them to recommend admission. She reports feeling much better now that she is here but continues to have dry cough. Subjective/Events-last exam She is feeling anxious today. She denies any chest pain. She is still short of breath. She has no other complaints or concerns. Objective Exam Vital Signs Vital Signs Date Time Temp Pulse Resp B/P (MAP) Pulse Ox O2 Delivery O2 Flow Rate FiO2 08/03/20 11:43 37.3 08/03/20 10:00 128 23 112/59 (76) 87 Vapotherm 40.00 100.00 08/03/20 08:33 25 Capillary Refill : Less Than 3 SecondsLess Than 3 Seconds General Appearance: No Apparent Distress, WD/WN Respiratory: Lungs Clear, Normal Breath Sounds, No Respiratory Distress Cardiovascular: Regular Rate, Rhythm, No Edema, No Murmur Gastrointestinal: Normal Bowel Sounds, Non Tender, Soft Extremity: Normal Inspection, Non Tender, No Pedal Edema Neurologic/Psychiatric: Alert, Oriented x3, No Motor/Sensory Deficits, Normal Mood/Affect Skin: Normal Color, Warm/Dry Results/Procedures Lab Laboratory Tests 08/03/20 03:30 Patient resulted labs reviewed. Imaging: Reviewed Imaging Report Assessment/Plan Assessment and Plan Assess & Plan/Chief Complaint Acute respiratory failure due to COVID-19 BIPAP/Vapotherm as needed, oxygen need slowly improving Proning as tolerated s/p remdesivir Decadron day 05/17 S/p 1 unit convalescent plasma Perform CT Chest to rule out pulmonary embolism Hypokalemia Monitor and replace as needed Debility PT/OT DVT ppx: Lovenox Diagnosis/Problems Diagnosis/Problems (1) Acute respiratory failure due to COVID-19 Status: Acute (2) Debility Status: Acute (3) Hypokalemia Status: Acute Clinical Quality Measures DVT/VTE Risk/Contraindication: Risk Factor Score Per Nursin RFS Level Per Nursing on Admit: 4+=Very High NESTOR MISTRY MD Aug 03, 2020 12:57
[2020-08-03] MEDS: ENOXAPARIN 40 MG/0.4 ML (LOVENOX) SYR SC SCH (13:36)
[2020-08-03] MEDS ORDERED: HOLD METFORMIN - RECEIVED CONTRAST 20 ML VIAL IV SCH (13:45)
[2020-08-03] MEDS ORDERED: NS 100 ML (IVPB) BAG IV ONE (13:45)
[2020-08-03] MEDS ORDERED: IOHEXOL 350 MG/ML 100 ML (OMNIPAQUE 350) VIAL IV ONE (13:45)
--- NOTE | 2020-08-03 14:28 | Diagnostic Imaging Report ---
PROCEDURE: CT angiography of the chest with contrast. TECHNIQUE: Multiple contiguous axial images were obtained through the chest after uneventful bolus administration of intravenous contrast. 3D reconstructed CTA MIP acquisitions were also performed. Auto Exposure Controls were utilized during the CT exam to meet ALARA standards for radiation dose reduction. INDICATION: Hypoxia. COVID Positive patient. COMPARISON: None FINDINGS: There is no acute pulmonary embolus to the segmental division of the pulmonary arteries. Evaluation beyond this is suboptimal secondary to motion artifact. There is mild scattered calcified and noncalcified aortic atherosclerosis. By NASCET criteria, there is no focal significant aortic stenosis. There is no unusual dilatation or evidence of dissection. Heart size is mildly enlarged. There is no large pericardial effusion. Several prominent appearing, subcentimeter mesenteric lymph nodes are noted. No abnormal axillary adenopathy is seen. Evaluation of the lung cornelius demonstrates background moderate emphysematous disease. There are also scattered patchy and confluent airspace infiltrates bilaterally, greatest within the left lower lobe. Pulmonary nodule or mass may be obscured. There is no large effusion or pneumothorax. Osseous structures show no acute abnormalities. No lytic or blastic osseous lesions are seen. Included portions of the upper abdomen are unremarkable. IMPRESSION: 1. No acute embolus to the segmental division of the pulmonary arteries. 2. Mild cardiomegaly. 3. Scattered patchy and confluent airspace infiltrates bilaterally, greatest within the left lower lobe. Dictated by: Dictated on workstation # [id number]
[2020-08-03] MEDS: SERTRALINE 50 MG (ZOLOFT) TABLET PO SCH (19:39)
[2020-08-03] MEDS ORDERED: HYDROcodone/APAP 5 MG/325 MG (LORTAB) TAB ONE (22:06)
[2020-08-03] MEDS ORDERED: HYDROcodone/APAP 5 MG/325 MG (LORTAB) TAB PO PRN (22:15)
[2020-08-04] VITALS (25 sets, daily range): BP systolic 67–123; BP diastolic 40–76
[2020-08-04] MEDS: guaiFENesin SYRUP 100 MG/5 ML 10 ML (ROBITUSSIN SF) PO SCH ×6 (01:02→20:02)
[2020-08-04] MEDS: RT-ALBUTEROL INHALER HFA (VENTOLIN HFA) 18 GM IH SCH ×4 (02:00→19:51)
[2020-08-04] MEDS: DexMEDEtomidine PRE MIX 100 ML IV SCH ×4 (02:31→20:02)
[2020-08-04 03:09] LABS: BASOPHILS % (AUTO) 0 % (0-10); EOSINOPHILS % (AUTO) 0 % (0-10); MEAN CORPUSCULAR VOLUME 85 fL (80-99)
[2020-08-04 03:11] LABS: HEMATOCRIT 34 % (35-52); HEMOGLOBIN 11.2 g/dL (11.5-16.0); LYMPHOCYTES # (AUTO) 0.5 10^3/uL (1.0-4.0); LYMPHOCYTES % (AUTO) 5 % (12-44); MEAN CORPUSCULAR HEMOGLOBIN 28 pg (25-34); MEAN CORPUSCULAR HGB CONC 33 g/dL (32-36); MONOCYTES # (AUTO) 0.3 10^3/uL (0.0-1.0); MONOCYTES % (AUTO) 3 % (0-12); NEUTROPHILS # (AUTO) 8.7 10^3/uL (1.8-7.8); NEUTROPHILS % (AUTO) 89 % (42-75); PLATELET COUNT 96 10^3/uL (130-400); WHITE BLOOD COUNT 9.8 10^3/uL (4.3-11.0)
[2020-08-04 03:16] LABS: ABG BASE EXCESS 2.1 MMOL/L (-2.5-2.5); ABG OXYGEN SATURATION 96 % (94-100); ABG PCO2 34 MMHG (35-45); ABG PH 7.48 (7.37-7.43); ABG PO2 78 MMHG (79-93); ABG TCO2 26.5 MMOL/L (21.0-31.0)
[2020-08-04 03:19] LABS: CHLORIDE 95 MMOL/L (98-107); POTASSIUM 4.4 MMOL/L (3.6-5.0); SODIUM 129 MMOL/L (135-145)
[2020-08-04 03:20] LABS: CALCIUM 8.2 MG/DL (8.5-10.1)
[2020-08-04 03:20] LABS: ALLENS TEST YES-POS; INSPIRED O2 75%; VENTILATOR NO
[2020-08-04 03:21] LABS: GLUCOSE 139 MG/DL (70-105); TOTAL PROTEIN 5.5 GM/DL (6.4-8.2)
[2020-08-04 03:22] LABS: CARBON DIOXIDE 24 MMOL/L (21-32)
[2020-08-04 03:23] LABS: BILIRUBIN,TOTAL 0.6 MG/DL (0.1-1.0)
[2020-08-04 03:24] LABS: PHOSPHORUS 2.9 MG/DL (2.3-4.7)
[2020-08-04 03:25] LABS: ALKALINE PHOSPHATASE 42 U/L (40-136); CREATININE SERUM 0.59 MG/DL (0.60-1.30); GFR ESTIMATED > 60
[2020-08-04 03:26] LABS: BUN/CREATININE RATIO 39
[2020-08-04 03:28] LABS: ALANINE AMINOTRANSFERASE 22 U/L (0-55)
[2020-08-04] MEDS ORDERED: NS 100 ML (IVPB) BAG IV ONE ×2 (03:30→20:00)
[2020-08-04] MEDS ORDERED: NS (IVPB) 250 ML IV ONE ×2 (03:30→20:00)
[2020-08-04] MEDS: MAGNESIUM 1 GM/100 ML IVPB 100 ML IV SCH (03:34)
[2020-08-04] MEDS: KCL 20 MEQ TAB (K-DUR) PO SCH (03:34)
[2020-08-04] MEDS: POTASSIUM CL 10MEQ/50ML IVPB 50 ML IV SCH (03:34)
[2020-08-04 03:51] LABS: ATYPICAL LYMPHOCYTES 2 %; BAND NEUTROPHILS 9 %; BASOPHILS % (MANUAL) 0 %; EOSINOPHILS % (MANUAL) 0 %; LYMPHOCYTES % (MANUAL) 2 %; MONOCYTES % (MANUAL) 3 %; NEUTROPHILS % (MANUAL) 84 %
[2020-08-04] MEDS: inSUlin ASPART (NovoLOG) 1 UNIT/0.01 ML (CHARGE PER UNIT) SC SCH ×4 (04:41→20:23)
[2020-08-04] MEDS: ADVAIR HFA 115/21 MCG INHALER 8 GM IH SCH ×2 (06:53→19:52)
[2020-08-04] MEDS: UMECLIDINIUM BROMIDE (INCRUSE ELLIPTA) 7'S IH SCH (06:53)
[2020-08-04] MEDS: PANTOPRAZOLE 40 MG (PROTONIX) VIAL IV SCH (07:29)
[2020-08-04] MEDS: ASPIRIN E.C. 81 MG (ECOTRIN) TAB PO SCH (07:30)
[2020-08-04] MEDS: VITAMIN D3 125 MCG (5,000 UNITS) CAPSULE PO SCH (07:30)
[2020-08-04] MEDS: ACETAMINOPHEN 325 MG TABLET PO PRN ×2 (07:40→16:41)
[2020-08-04] MEDS: CEFEPIME INJECTION 1,000 MG in WATER (STERILE) FOR INJECTION 10 ML IV SCH ×4 (08:50→23:50)
[2020-08-04] MEDS ORDERED: VANCOMYCIN 1250 MG/NS 250 ML IVPB IV SCH ×2 (09:00)
--- NOTE | 2020-08-04 09:02 | Physical Therapy Daily Note ---
PT Daily Note-Current Subjective Patient in bed pre tx, agrees to PT, has no complaints of pain, patient had a bipap on, nurse states she wanted it on and even refused breakfast so she could keep it on. Patient states she doesn't want to take it off. Patient states she will take it off for lunch and nurse states at that time she can assist patient into a recliner. Patient will perform LE exercises at this time. Proper PPE donned before entering room. Appearance Patient in bed post tx with nurse call, phone, tray, all needs met, nurse in room. Mental Status Patient Orientation: Person, Place, Situation Attachments: Oxygen, Humphrey Catheter, IV Transfers SCALE: Activities may be completed with or without assistive devices. 4-Kithuliheb-pwhghiv completes the activity by him/herself with no assistance from a helper. 5-Set-up or Clean-up Assistance-helper sets up or cleans up; patient completes activity. [place] assists only prior to or following the activity. 4-Supervision or Touching Assistance-helper provides verbal cues and/or touching/steadying and/or contact guard assistance as patient completes activity. Assistance may be provided throughout the activity or intermittently. 3-Partial/Moderate Assistance-helper does LESS THAN HALF the effort. [place] lifts, holds or supports trunk or limbs, but provides less than half the effort. 2-Substantial/Maximal Assistance-helper does MORE THAN HALF the effort. [place] lifts or holds trunk or limbs and provides more than half the effort. 7-Wctjoddbp-fzlqby does ALL the effort. Patient does none of the effort to complete the activity. Or, the assistance of 2 or more helpers is required for the patient to complete the activity. If activity was not attempted, code reason: 7-Patient Refused. 9-Not Applicable-not attempted and the patient did not perform the activity before the current illness, exacerbation or injury. 10-Not Attempted due to Environmental Limitations-(lack of equipment, weather restraints, etc.). 88-Not Attempted due to Medical Conditions or Safety Concerns. Exercises Supine Ex: Ankle pumps, Quad Set, Glut sets, Heel Slides, Short Arc Quads, Straight leg raise, Hip abd/add Supine Reps: 20 Treatments LE exercise Assessment Current Status: Fair Progress improving functional mobility and LE strength PT Senior Care Goals Senior Care Goals PT Hand Coremaker Goals Time Frame: Aug 08, 2020 Roll Left & Right (QC): 6 Sit to Lying (QC): 6 Lying-Sitting on Side/Bed(QC): 6 Sit to Stand (QC): 6 Chair/Oxn-ro-Cazzz Xfer(QC): 6 Toilet Transfer (QC): 6 Car Transfer (QC): 6 Does the Patient Walk: Yes Walk 10 feet (QC): 6 Walk 50ft with 2 Turns (QC): 6 Walk 150 ft (QC): 6 Walking 10ft on Uneven Surface: 6 1 Step (curb) (QC): 6 4 Steps (QC): 6 12 Steps (QC): 9 PT Plan Problem List Problem List: Activity Tolerance, Functional Strength, Safety, Balance, Gait, Transfer Treatment/Plan Treatment Plan: Continue Plan of Care Treatment Plan: Education, Functional Activity Mumtaz, Functional Strength, Gait, Safety, Therapeutic Exercise, Transfers Treatment Duration: Aug 08, 2020 Frequency: 6 times per week Estimated Hrs Per Day: .25 hour per day Patient and/or Family Agrees t: Yes Safety Risks/Education Patient Education: Correct Positioning, Safety Issues Teaching Recipient: Patient Teaching Methods: Demonstration, Discussion Response to Teaching: Reinforcement Needed Time/GCodes Time In: 0835 Time Out: 0848 Total Billed Treatment Time: 13 Total Billed Treatment 1 visit EX NEGRO ASCENCIO PT Aug 04, 2020 09:02
--- NOTE | 2020-08-04 09:11 | NUR ---
PTD Vancomycin - 1250mg loading dose, then 1gm every 12 hours. Trough ordered for 08/06 @ 0800.
[2020-08-04] MEDS ORDERED: LACTATED RINGERS 1,000 ML IV ONE (09:45)
[2020-08-04] MEDS: LACTATED RINGERS 1,000 ML IV SCH ×2 (10:07→16:31)
[2020-08-04] MEDS: ENOXAPARIN 40 MG/0.4 ML (LOVENOX) SYR SC SCH (13:46)
--- NOTE | 2020-08-04 15:10 | Progress Note - Hospitalist ---
Subjective HPI/CC On Admission Date Seen by Provider: Aug 04, 2020 Time Seen by Provider: 10:55 Pt is a 74yoCF who was direct admitted from [facility] Urgent care due to COVID19. She states that her beckybadn was diagnosed with COVID on 07/19 and she came back positive the next day as well. She woke up that morning thinking she had pneumonia and had a dry hacking cough. She had a fever of 104.7 this morning prompting her to seek evaluation back at the urgent care. She is on roughly day 7 of symptoms and her sats were 91% at urgent care prompting them to recommend admission. She reports feeling much better now that she is here but continues to have dry cough. Subjective/Events-last exam she is feeling a bit better today. She thinks she is getting better every day. She has been having fevers. She denies any worsening shortness of breath or cough. She denies any abdominal pain, nausea, vomiting, or diarrhea. She has been eating and drinking. Focused Exam Lactate Level 08/04/20 08:45: Lactic Acid Level 2.72*H 08/04/20 11:15: Lactic Acid Level 1.21 Lactic Acid Level Laboratory Tests Test 08/04/20 11:15 Lactic Acid Level 1.21 MMOL/L (0.50-2.00) Objective Exam Vital Signs Vital Signs Date Time Temp Pulse Resp B/P (MAP) Pulse Ox O2 Delivery O2 Flow Rate FiO2 08/04/20 14:37 91 Vapotherm 35.00 100 08/04/20 14:00 92 32 117/61 (79) 08/04/20 11:20 37.3 Capillary Refill : Less Than 3 SecondsLess Than 3 Seconds General Appearance: No Apparent Distress, WD/WN Respiratory: Lungs Clear, Normal Breath Sounds, No Respiratory Distress Cardiovascular: Regular Rate, Rhythm, No Edema, No Murmur Gastrointestinal: Normal Bowel Sounds, Non Tender, Soft Extremity: Normal Inspection, Non Tender, No Pedal Edema Neurologic/Psychiatric: Alert, Oriented x3, No Motor/Sensory Deficits, Normal Mood/Affect Skin: Normal Color, Warm/Dry Results/Procedures Lab Laboratory Tests 08/04/20 02:50 Patient resulted labs reviewed. Imaging: Reviewed Imaging Report Assessment/Plan Assessment and Plan Assess & Plan/Chief Complaint Acute respiratory failure due to COVID-19 Possible bacterial pneumonia BIPAP/Vapotherm as needed, oxygen need slowly improving CT Chest revealed no PE, infiltrates throughout greatest in left lower lobe Procalcitonin 0.16 Febrile this morning Obtain blood cultures Lactic acid mildly elevated Started on gentle IV fluids Begin Vancomycin and Cefepime for possible bacterial pneumonia Proning as tolerated s/p remdesivir Decadron day 06/16 S/p 1 unit convalescent plasma Hypokalemia Monitor and replace as needed Debility PT/OT DVT ppx: Lovenox Diagnosis/Problems Diagnosis/Problems (1) Acute respiratory failure due to COVID-19 Status: Acute (2) Debility Status: Acute (3) Hypokalemia Status: Acute (4) HCAP (healthcare-associated pneumonia) Status: Acute Clinical Quality Measures DVT/VTE Risk/Contraindication: Risk Factor Score Per Nursin RFS Level Per Nursing on Admit: 4+=Very High NESTOR MISTRY MD Aug 04, 2020 15:10
[2020-08-04] MEDS: ONDANSETRON 4 MG/2 ML (SDV) Z0FRAN IV PRN (15:19)
--- NOTE | 2020-08-04 15:22 | NUR ---
pt inc of bowel, linens changed and ricky care given. pt c/o nausea. pt given zofran 4 mg. pt denies any further needs at this time.
--- NOTE | 2020-08-04 17:28 | NUR ---
pts temp 104 after receiving tylenol 650mg and ice packs applied to groin and axillary areas. pt c/o chilling. dr castro notified. new orders received.
[2020-08-04] MEDS ORDERED: BIVALIRUDIN INJECTION 250 MG in D5W 50 ML IVPB SOLUTION 45 ML IV SCH (17:45)
[2020-08-04] MEDS ORDERED: IBUPROFEN 600 MG (MOTRIN) TAB PO ONE ×2 (18:00→18:06)
[2020-08-04 18:48] LABS: FIBRIN DEGRADATION PRODUCTS 1.24 UG/ML (0.00-0.49); INR 1.3 (0.8-1.4); PROTHROMBIN TIME PATIENT 16.8 SEC (12.2-14.7)
[2020-08-04] MEDS ORDERED: ALPRAZolam 0.5 MG (XANAX) TAB ONE (19:44)
[2020-08-04] MEDS ORDERED: NS (IVPB) 250 ML ONE (19:56)
[2020-08-04] MEDS ORDERED: ALPRAZolam 0.5 MG (XANAX) TAB PO PRN (20:00)
[2020-08-04] MEDS: SERTRALINE 50 MG (ZOLOFT) TABLET PO SCH (20:03)
[2020-08-04] MEDS: VANCOMYCIN INJECTION 1,000 MG in NS (IVPB) 250 ML IV SCH (20:03)
[2020-08-04] MEDS: BIVALIRUDIN INJECTION 250 MG in D5W 50 ML IVPB SOLUTION 45 ML IV SCH (20:24)
[2020-08-04] MEDS ORDERED: ALPRAZolam 0.25 MG (XANAX) TAB PO PRN (20:45)
[2020-08-04] MEDS ORDERED: NOREPINEPHRINE 4 MG/250 ML 250 ML IV ONE (20:49)
[2020-08-04] MEDS: NOREPINEPHRINE 4 MG/250 ML 250 ML IV SCH (21:04)
--- NOTE | 2020-08-04 22:33 | NUR ---
Pt had taken BIPAP off stating she "does not need this mask anymore" This RN gowned up and put the pt back on BIPAP, sats dropped down to the low 80s. Pt orientated to person, time, and place but not situation. Pt asked why she was in the hospital, this RN explained that she had COVID. BIPAP back on at 75% O2, pt sat 94%, will continue to monitor.
[2020-08-05] VITALS (25 sets, daily range): BP systolic 91–129; BP diastolic 47–69
[2020-08-05] MEDS: guaiFENesin SYRUP 100 MG/5 ML 10 ML (ROBITUSSIN SF) PO SCH ×6 (00:32→20:14)
[2020-08-05] MEDS: RT-ALBUTEROL INHALER HFA (VENTOLIN HFA) 18 GM IH SCH ×3 (01:21→15:26)
[2020-08-05] MEDS: ONDANSETRON 4 MG/2 ML (SDV) Z0FRAN IV PRN (01:49)
[2020-08-05 03:14] LABS: MONOCYTES # (AUTO) 0.3 10^3/uL (0.0-1.0); MONOCYTES % (AUTO) 2 % (0-12)
[2020-08-05 03:15] LABS: BASOPHILS % (AUTO) 0 % (0-10); EOSINOPHILS # (AUTO) 0.1 10^3/uL (0.0-0.3); EOSINOPHILS % (AUTO) 1 % (0-10); HEMATOCRIT 33 % (35-52); HEMOGLOBIN 10.8 g/dL (11.5-16.0); LYMPHOCYTES # (AUTO) 0.5 10^3/uL (1.0-4.0); LYMPHOCYTES % (AUTO) 4 % (12-44); MEAN CORPUSCULAR HEMOGLOBIN 28 pg (25-34); MEAN CORPUSCULAR HGB CONC 33 g/dL (32-36); MEAN CORPUSCULAR VOLUME 85 fL (80-99); MEAN PLATELET VOLUME 10.6 fL (9.0-12.2); NEUTROPHILS # (AUTO) 9.5 10^3/uL (1.8-7.8); NEUTROPHILS % (AUTO) 88 % (42-75); PLATELET COUNT 98 10^3/uL (130-400); WHITE BLOOD COUNT 10.8 10^3/uL (4.3-11.0)
[2020-08-05] MEDS ORDERED: morphine INJ 4 MG/ML 1 ML (VIAL/SYRINGE) ONE (03:19)
[2020-08-05] MEDS: morphine INJ 4 MG/ML 1 ML (VIAL/SYRINGE) IVP PRN (03:28)
[2020-08-05 03:35] LABS: ALBUMIN 2.4 GM/DL (3.2-4.5); CHLORIDE 95 MMOL/L (98-107); POTASSIUM 3.2 MMOL/L (3.6-5.0); SODIUM 129 MMOL/L (135-145)
[2020-08-05 03:36] LABS: CALCIUM 7.4 MG/DL (8.5-10.1)
[2020-08-05 03:37] LABS: GLUCOSE 120 MG/DL (70-105); TOTAL PROTEIN 4.7 GM/DL (6.4-8.2)
[2020-08-05 03:38] LABS: CARBON DIOXIDE 21 MMOL/L (21-32)
[2020-08-05 03:39] LABS: BILIRUBIN,TOTAL 0.7 MG/DL (0.1-1.0)
[2020-08-05 03:40] LABS: PHOSPHORUS 3.7 MG/DL (2.3-4.7)
[2020-08-05 03:41] LABS: ALKALINE PHOSPHATASE 45 U/L (40-136); CREATININE SERUM 0.49 MG/DL (0.60-1.30); GFR ESTIMATED > 60
[2020-08-05 03:42] LABS: BUN/CREATININE RATIO 43
[2020-08-05 03:44] LABS: ALANINE AMINOTRANSFERASE 24 U/L (0-55)
[2020-08-05] MEDS: KCL 20 MEQ TAB (K-DUR) PO SCH (04:01)
[2020-08-05] MEDS: POTASSIUM CL 10MEQ/50ML IVPB 50 ML IV SCH ×4 (04:01→07:52)
[2020-08-05] MEDS: MAGNESIUM 1 GM/100 ML IVPB 100 ML IV SCH (04:01)
[2020-08-05] MEDS: inSUlin ASPART (NovoLOG) 1 UNIT/0.01 ML (CHARGE PER UNIT) SC SCH ×4 (06:03→20:41)
[2020-08-05] MEDS: LACTATED RINGERS 1,000 ML IV SCH ×3 (06:04→22:17)
[2020-08-05] MEDS: CEFEPIME INJECTION 1,000 MG in WATER (STERILE) FOR INJECTION 10 ML IV SCH ×3 (06:07→17:01)
--- NOTE | 2020-08-05 07:40 | NUR ---
PT C/O PERSISTENT N/V, O2 SATS IN MID 80S WHILE ON 40L 100% VAPOTHERM. UNABLE TO TOLERATE BIPAP D/T N/V. TELE-ICU NOTIFIED AND IS ASSESSING PT. NEW ORDERS RECEIVED TO INSERT NG TUBE TO LOW-INT SUCTION. PT UNABLE TO TOLERATE NG TUBE PLACEMENT AND ABG. TELE-ICU CONTINUES TO ASSESS PT WHILE THIS RN IS IN ROOM. NEW ORDERS RECEIVED FOR REGLAN. PT REQUESTED TO TRY 15L ON NRB, O2 SATS DECREASED TO LOW 80S WHILE ON NRB. PT RETURNED TO VAPOTHERM AND ASSISTED TO PRONE POSITION. O2 SATS INCREASED TO MID 90S. PT REPORTS FEELING BETTER WHILE PRONE.
[2020-08-05] MEDS: NOREPINEPHRINE 4 MG/250 ML 250 ML IV SCH (07:53)
[2020-08-05] MEDS: PANTOPRAZOLE 40 MG (PROTONIX) VIAL IV SCH (07:54)
[2020-08-05] MEDS ORDERED: METOCLOPRAMIDE INJ 10 MG/2 ML (REGLAN) ONE (07:54)
[2020-08-05] MEDS: VANCOMYCIN INJECTION 1,000 MG in NS (IVPB) 250 ML IV SCH ×2 (09:03→20:13)
[2020-08-05] MEDS: ADVAIR HFA 115/21 MCG INHALER 8 GM IH SCH ×2 (10:42→19:08)
[2020-08-05] MEDS: UMECLIDINIUM BROMIDE (INCRUSE ELLIPTA) 7'S IH SCH (10:43)
[2020-08-05] MEDS: VITAMIN D3 125 MCG (5,000 UNITS) CAPSULE PO SCH (10:47)
[2020-08-05] MEDS: ASPIRIN E.C. 81 MG (ECOTRIN) TAB PO SCH (10:47)
[2020-08-05] MEDS: DexMEDEtomidine PRE MIX 100 ML IV SCH (11:49)
[2020-08-05] MEDS ORDERED: METOCLOPRAMIDE INJ 10 MG/2 ML (REGLAN) IVP SCH (12:00)
[2020-08-05] MEDS: METOCLOPRAMIDE INJ 10 MG/2 ML (REGLAN) IVP PRN (13:38)
[2020-08-05] MEDS: ACETAMINOPHEN 650 MG SUPP (TYLENOL) PR PRN ×2 (13:38→20:14)
--- NOTE | 2020-08-05 17:26 | Progress Note - Hospitalist ---
Subjective HPI/CC On Admission Date Seen by Provider: Aug 05, 2020 Time Seen by Provider: 10:40 Pt is a 74yoCF who was direct admitted from [facility] Urgent care due to COVID19. She states that her beckybadn was diagnosed with COVID on 07/19 and she came back positive the next day as well. She woke up that morning thinking she had pneumonia and had a dry hacking cough. She had a fever of 104.7 this morning prompting her to seek evaluation back at the urgent care. She is on roughly day 7 of symptoms and her sats were 91% at urgent care prompting them to recommend admission. She reports feeling much better now that she is here but continues to have dry cough. Subjective/Events-last exam She has been nauseous and vomiting this morning. She has been having fevers. She has been short of breath. She is anxious. Focused Exam Lactate Level 08/04/20 08:45: Lactic Acid Level 2.72*H 08/04/20 11:15: Lactic Acid Level 1.21 Objective Exam Vital Signs Vital Signs Date Time Temp Pulse Resp B/P (MAP) Pulse Ox O2 Delivery O2 Flow Rate FiO2 08/05/20 17:14 36.7 Vapotherm 35.00 85.00 08/05/20 17:00 92 112/60 (77) 98 08/05/20 16:00 18 08/05/20 15:26 80 Capillary Refill : Less Than 3 SecondsLess Than 3 Seconds General Appearance: No Apparent Distress, WD/WN, Anxious Respiratory: No Respiratory Distress, Decreased Breath Sounds, Wheezing Cardiovascular: No Edema, No Murmur, Tachycardia Gastrointestinal: Normal Bowel Sounds, Non Tender, Soft Extremity: Normal Inspection, Non Tender, No Pedal Edema Neurologic/Psychiatric: Alert, Oriented x3, No Motor/Sensory Deficits, Normal Mood/Affect Skin: Normal Color, Warm/Dry Results/Procedures Lab Laboratory Tests 08/05/20 02:30 Patient resulted labs reviewed. Imaging: Reviewed Imaging Report Assessment/Plan Assessment and Plan Assess & Plan/Chief Complaint Acute respiratory failure due to COVID-19 Possible bacterial pneumonia Hypotension BIPAP/Vapotherm as needed, oxygen need slowly improving Continue Vancomycin and Cefepime for possible bacterial pneumonia Continue Decadron s/p remdesivir and convalescent plasma Proning as tolerated Started on Levophed overnight Thrombocytopenia Possible DEBI Platelets dropped significantly over past couple days 4T score 5-6, high risk of DEBI Lovenox discontinued Started on Angiomax Nausea and vomiting Antiemetics as needed Hyponatremia Hypokalemia Monitor and replace as needed Debility PT/OT DVT ppx: Lovenox Diagnosis/Problems Diagnosis/Problems (1) Acute respiratory failure due to COVID-19 Status: Acute (2) Debility Status: Acute (3) Hypokalemia Status: Acute (4) HCAP (healthcare-associated pneumonia) Status: Acute (5) Thrombocytopenia Status: Acute (6) Hypotension Status: Acute Clinical Quality Measures DVT/VTE Risk/Contraindication: Risk Factor Score Per Nursin RFS Level Per Nursing on Admit: 4+=Very High NESTOR MISTRY MD Aug 05, 2020 17:26
[2020-08-05] MEDS: BIVALIRUDIN INJECTION 250 MG in D5W 50 ML IVPB SOLUTION 45 ML IV SCH (20:24)
[2020-08-05] MEDS: SERTRALINE 50 MG (ZOLOFT) TABLET PO SCH (20:41)
--- NOTE | 2020-08-05 22:03 | NUR ---
RETURNED PHONE CALL FROM SUMEET KHAN. PASSWORD VERIFIED. UPDATE ON PATIENT'S CONDITION GIVEN.
[2020-08-06] VITALS (26 sets, daily range): BP systolic 99–146; BP diastolic 48–71
[2020-08-06] MEDS: CEFEPIME INJECTION 1,000 MG in WATER (STERILE) FOR INJECTION 10 ML IV SCH ×4 (00:40→17:41)
[2020-08-06] MEDS: DexMEDEtomidine PRE MIX 100 ML IV SCH ×2 (00:54→20:06)
[2020-08-06] MEDS: guaiFENesin SYRUP 100 MG/5 ML 10 ML (ROBITUSSIN SF) PO SCH ×6 (02:52→20:06)
[2020-08-06] MEDS: METOCLOPRAMIDE INJ 10 MG/2 ML (REGLAN) IVP PRN ×3 (02:52→21:15)
[2020-08-06] MEDS: RT-ALBUTEROL INHALER HFA (VENTOLIN HFA) 18 GM IH SCH ×4 (03:25→21:49)
[2020-08-06 04:24] LABS: BASOPHILS % (AUTO) 0 % (0-10); EOSINOPHILS # (AUTO) 0.1 10^3/uL (0.0-0.3); EOSINOPHILS % (AUTO) 2 % (0-10); HEMATOCRIT 32 % (35-52); HEMOGLOBIN 10.3 g/dL (11.5-16.0); LYMPHOCYTES # (AUTO) 0.5 10^3/uL (1.0-4.0); LYMPHOCYTES % (AUTO) 6 % (12-44); MEAN CORPUSCULAR HEMOGLOBIN 28 pg (25-34); MEAN CORPUSCULAR HGB CONC 33 g/dL (32-36); MEAN CORPUSCULAR VOLUME 85 fL (80-99); MEAN PLATELET VOLUME 10.7 fL (9.0-12.2); MONOCYTES # (AUTO) 0.3 10^3/uL (0.0-1.0); MONOCYTES % (AUTO) 3 % (0-12); NEUTROPHILS # (AUTO) 7.7 10^3/uL (1.8-7.8); NEUTROPHILS % (AUTO) 88 % (42-75); PLATELET COUNT 107 10^3/uL (130-400); WHITE BLOOD COUNT 8.8 10^3/uL (4.3-11.0)
[2020-08-06 04:36] LABS: ALBUMIN 2.3 GM/DL (3.2-4.5); CHLORIDE 95 MMOL/L (98-107); SODIUM 130 MMOL/L (135-145)
[2020-08-06 04:37] LABS: CALCIUM 7.4 MG/DL (8.5-10.1)
[2020-08-06 04:39] LABS: GLUCOSE 84 MG/DL (70-105); TOTAL PROTEIN 4.6 GM/DL (6.4-8.2)
[2020-08-06 04:40] LABS: CARBON DIOXIDE 23 MMOL/L (21-32)
[2020-08-06 04:41] LABS: BILIRUBIN,TOTAL 0.5 MG/DL (0.1-1.0)
[2020-08-06 04:42] LABS: ALKALINE PHOSPHATASE 43 U/L (40-136); CREATININE SERUM 0.45 MG/DL (0.60-1.30); GFR ESTIMATED > 60; PHOSPHORUS 2.6 MG/DL (2.3-4.7)
[2020-08-06 04:43] LABS: BUN/CREATININE RATIO 24
[2020-08-06 04:45] LABS: ALANINE AMINOTRANSFERASE 20 U/L (0-55); MAGNESIUM 1.9 MG/DL (1.6-2.4)
--- NOTE | 2020-08-06 04:45 | Pulmonary Consultation ---
History of Present Illness History of Present Illness Date Seen by Provider: Aug 06, 2020 Time Seen by Provider: 04:38 Date of Admission Allergies and Home Medications Allergies Coded Allergies: amoxicillin (Verified Adverse Reaction, Unknown, YEAST INFECTION, 07/24/20) clavulanic acid (Verified Adverse Reaction, Unknown, YEAST INFECTION, 07/24/20) Home Medications Acetaminophen 325 Mg Tablet, 650 MG PO Q8H PRN for PAIN-MILD (1-4) OR TEMPATURE, (Reported) Albuterol Sulfate 2.5 Mg/3 Ml Vial.neb, 3 ML NEB Q4 -6H PRN for SHORTNESS OF BREATH, (Reported) Albuterol Sulfate 18 Gm Hfa.aer.ad, 2 PUFF INH Q6H PRN for SHORTNESS OF BREATH, (Reported) Ascorbic Acid 500 Mg Capsule.er, 500 MG PO DAILY, (Reported) Aspirin 81 Mg Tablet.dr, 81 MG PO DAILY, (Reported) Budesonide/Glycopyr/Formoterol 10.7 Gm Hfa.aer.ad, 2 PUFF IH BID, (Reported) Cholecalciferol (Vitamin D3) 125 Mcg Tablet, 125 MCG PO DAILY, (Reported) Dexamethasone 6 Mg Tablet, 6 MG PO DAILY, (Reported) FILLED 07-19-2020 #10/10 DAY SUPPLY Diphenhydramine HCl 25 Mg Tablet, 12.5-25 MG PO BID PRN for ALLERGY SYMPTOMS/SLEEP, (Reported) Doxycycline Hyclate 100 Mg Tablet, 100 MG PO BID, (Reported) FILLED 07-19-2020 #20/10 DAY SUPPLY Pantoprazole Sodium 40 Mg Tablet.dr, 40 MG PO HS, (Reported) Promethazine HCl/Codeine 5 Ml Syrup, 5-10 ML PO Q6H PRN for COUGH, (Reported) Quinine Sulfate 324 Mg Capsule, 324 MG PO DAILY PRN for CRAMPS, (Reported) Zinc 50 Mg Tablet, 50 MG PO DAILY, (Reported) Past Lqxsrqc-Qeuymb-Qisdpc Hx Past Med/Social Hx: Reviewed Nursing Past Med/Soc Hx Patient Social History Alcohol Use: Denies Use Recreational Drug Use: No Smoking Status: Former Smoker Recent Foreign Travel: No Contact w/Someone Who Travel: Yes Recent Infectious Disease Expo: Yes (covid19) Immunizations Up To Date Date of Pneumonia Vaccine: Oct 08, 2019 Date of Influenza Vaccine: Oct 08, 2019 Past Medical History : No Family Medical History Reviewed Nursing Family Hx No Pertinent Family Hx Review of Systems Time Seen by Provider: 04:38 Sepsis Event Evaluation Height, Weight, BMI Height: '" Weight: lbs. oz. kg; 26.88 BMI Method: Exam Exam Vital Signs Date Time Temp Pulse Resp B/P (MAP) Pulse Ox O2 Delivery O2 Flow Rate FiO2 08/06/20 03:25 96 Vapotherm 35.00 75 08/06/20 03:00 Vapotherm 35.00 75.00 08/06/20 02:00 84 16 116/65 (82) 97 Vapotherm 35.00 08/06/20 01:00 89 08/06/20 01:00 89 13 115/63 (80) 94 Vapotherm 35.00 08/06/20 00:54 97 107/67 08/06/20 00:00 37.2 08/06/20 00:00 89 17 122/60 (80) 93 Vapotherm 35.00 08/05/20 23:39 96 Vapotherm 35.00 75 08/05/20 23:00 92 22 117/56 (76) 93 Vapotherm 35.00 08/05/20 22:00 91 18 113/57 (75) 94 Vapotherm 35.00 08/05/20 22:00 37.5 08/05/20 21:00 92 20 117/65 (82) 100 Vapotherm 35.00 08/05/20 20:45 38.1 08/05/20 20:44 38.1 08/05/20 20:34 35.00 75.00 08/05/20 20:14 37.9 08/05/20 20:00 Vapotherm 35.00 75 08/05/20 20:00 93 19 121/59 (79) 95 Vapotherm 35.00 80.00 08/05/20 19:47 37.9 08/05/20 19:08 98 Vapotherm 35.00 85 08/05/20 19:00 92 08/05/20 19:00 92 17 117/60 (79) 97 Vapotherm 35.00 80.00 08/05/20 18:00 91 15 111/57 (75) 97 Vapotherm 35.00 85.00 08/05/20 17:14 36.7 Vapotherm 35.00 85.00 08/05/20 17:00 92 112/60 (77) 98 Vapotherm 35.00 80.00 08/05/20 16:00 94 18 116/57 (76) 99 Vapotherm 35.00 80.00 08/05/20 15:26 92 Vapotherm 35.00 80 08/05/20 15:08 37.6 08/05/20 15:00 96 21 103/55 (71) 96 Vapotherm 35.00 80.00 08/05/20 14:00 104 20 129/65 (86) 94 Vapotherm 35.00 90.00 08/05/20 13:26 37.7 08/05/20 13:00 101 08/05/20 13:00 98 18 127/68 (87) 98 Vapotherm 35.00 90.00 08/05/20 12:00 100 19 101/65 (77) 95 Vapotherm 35.00 90.00 08/05/20 11:55 37.4 08/05/20 11:49 99 22 104/57 94 35.00 08/05/20 11:04 37.3 Vapotherm 35.00 90.00 08/05/20 11:00 99 22 104/57 (73) 94 Vapotherm 40.00 100.00 08/05/20 10:43 92 Vapotherm 35.00 90 08/05/20 10:00 87 18 115/59 (77) 100 Vapotherm 40.00 100.00 08/05/20 09:00 90 20 104/62 (76) 100 Vapotherm 40.00 100.00 08/05/20 08:04 37.0 Vapotherm 40.00 100.00 08/05/20 08:00 Vapotherm 40.00 100 08/05/20 08:00 88 15 116/65 (82) 99 Vapotherm 40.00 100.00 08/05/20 07:00 87 08/05/20 07:00 89 19 111/56 (74) 89 Vapotherm 40.00 100.00 08/05/20 06:00 84 26 107/54 (71) Vapotherm 40.00 100.00 08/05/20 05:00 82 20 103/56 (72) 87 Vapotherm 40.00 100.00 I & O 08/06/20 07:00 Intake Total 2830 ml Output Total 1375 ml Balance 1455 ml Height & Weight Height: '" Weight: lbs. oz. kg; 26.88 BMI Method: General Appearance: No Apparent Distress, WD/WN, Anxious HEENT: PERRL/EOMI, Moist Mucous Membranes; No Scleral Icterus (L), No Scleral Icterus (R) Neck: Normal Inspection, Supple Respiratory: No Respiratory Distress, Decreased Breath Sounds, Wheezing Cardiovascular: No Edema, No Murmur, Tachycardia Capillary Refill: Less Than 3 Seconds Extremity: Normal Inspection, Non Tender, No Pedal Edema Neurologic/Psychiatric: Alert, Oriented x3, No Motor/Sensory Deficits, Normal Mood/Affect Skin: Normal Color, Warm/Dry Results Lab Laboratory Tests 08/05/20 02:30 08/06/20 04:08 Assessment/Plan Assessment/Plan Acute respiratory failure due to COVID-19 with ARDS -BIPAP/Vapotherm as needed, oxygen need slowly improving -Currently on BiPAP 85% -Proning as tolerated Possible bacterial pneumonia -Continue Vancomycin and Cefepime for possible bacterial pneumonia Hypotension s/p Decadron s/p remdesivir and convalescent plasma Currenlty on Levophed Thrombocytopenia-- improving Possible DEBI HIT Abx is pending Lovenox discontinued Started on Angiomax Nausea and vomiting Antiemetics as needed Hyponatremia Hypokalemia Monitor and replace as needed Debility PT/OT DVT ppx: Lovenox TITO STEVE DO Aug 06, 2020 04:45
[2020-08-06] MEDS: MAGNESIUM 1 GM/100 ML IVPB 100 ML IV SCH (05:44)
[2020-08-06] MEDS: POTASSIUM CL 10MEQ/50ML IVPB 50 ML IV SCH ×5 (05:45→09:54)
[2020-08-06] MEDS: KCL 20 MEQ TAB (K-DUR) PO SCH (06:01)
[2020-08-06] MEDS: inSUlin ASPART (NovoLOG) 1 UNIT/0.01 ML (CHARGE PER UNIT) SC SCH ×4 (06:01→21:00)
[2020-08-06] MEDS: NOREPINEPHRINE 4 MG/250 ML 250 ML IV SCH ×3 (06:02→17:52)
[2020-08-06] MEDS: ADVAIR HFA 115/21 MCG INHALER 8 GM IH SCH ×2 (06:44→21:50)
[2020-08-06] MEDS: UMECLIDINIUM BROMIDE (INCRUSE ELLIPTA) 7'S IH SCH (06:45)
--- NOTE | 2020-08-06 07:12 | NUR ---
RETURNED GRAND-DAUGHTER'S PHONE CALL. PASSWORD VERIFIED. UPDATED HER ON PATIENT CONDITION.
--- NOTE | 2020-08-06 07:13 | Diagnostic Imaging Report ---
Indication: Pneumonia AP view of the chest is obtained with comparison to made study of 07/28/2020. Coarse mixed interstitial and alveolar densities are increased in the lungs bilaterally. There is no evidence of pneumothorax. Monitoring leads overlie the chest. Left upper extremity PICC is in place with tip projecting over the lower superior vena cava. Impression: Progression of coarse mixed interstitial and alveolar infiltrates throughout both lungs. Dictated by: Dictated on workstation # [id number]
[2020-08-06] MEDS ORDERED: TROUGH ORDER-PHARMACY XX NR (08:00)
[2020-08-06] MEDS: VANCOMYCIN INJECTION 1,000 MG in NS (IVPB) 250 ML IV SCH ×2 (09:04→17:41)
[2020-08-06] MEDS: LACTATED RINGERS 1,000 ML IV SCH ×2 (09:04→18:41)
[2020-08-06] MEDS: VITAMIN D3 125 MCG (5,000 UNITS) CAPSULE PO SCH (09:04)
[2020-08-06] MEDS: PANTOPRAZOLE 40 MG (PROTONIX) VIAL IV SCH (09:04)
[2020-08-06] MEDS: ACETAMINOPHEN 325 MG TABLET PO PRN (09:19)
--- NOTE | 2020-08-06 11:20 | Physical Therapy Progress Note ---
Therapy Progress Note Patient on Hold per RN due to decline in status. PT will continue to monitor patient status and resume when medically stable. CRISTINO JEFFREY PT Aug 06, 2020 11:20
--- NOTE | 2020-08-06 11:35 | Occ Therapy Progress Note ---
Therapy Progress Note Pt on hold per RN due to decline in status. OT will continue to monitor pt status and resume when medically stable. KIRBY DIA OT Aug 06, 2020 11:35
[2020-08-06] MEDS: ONDANSETRON 4 MG/2 ML (SDV) Z0FRAN IV PRN (15:39)
[2020-08-06] MEDS: SERTRALINE 50 MG (ZOLOFT) TABLET PO SCH (20:06)
[2020-08-06] MEDS: ACETAMINOPHEN 650 MG SUPP (TYLENOL) PR PRN (20:06)
--- NOTE | 2020-08-06 21:45 | NUR ---
CALLED GRAND-DAUGHTERSUMEET. PASSWORD VERIFIED AND UPDATED HER ON PATIENT CONDITION.
--- NOTE | 2020-08-06 22:00 | NUR ---
PATIENT PLACED IN PRONE POSITION AT THIS TIME.
[2020-08-07] VITALS (29 sets, daily range): BP systolic 100–133; BP diastolic 48–126
[2020-08-07] MEDS: VANCOMYCIN INJECTION 1,000 MG in NS (IVPB) 250 ML IV SCH (00:43)
[2020-08-07] MEDS: CEFEPIME INJECTION 1,000 MG in WATER (STERILE) FOR INJECTION 10 ML IV SCH ×5 (00:43→23:01)
[2020-08-07] MEDS: guaiFENesin SYRUP 100 MG/5 ML 10 ML (ROBITUSSIN SF) PO SCH ×6 (01:05→19:53)
[2020-08-07] MEDS: RT-ALBUTEROL INHALER HFA (VENTOLIN HFA) 18 GM IH SCH ×4 (03:14→19:05)
[2020-08-07 03:40] LABS: BASOPHILS % (AUTO) 0 % (0-10); EOSINOPHILS # (AUTO) 0.1 10^3/uL (0.0-0.3); EOSINOPHILS % (AUTO) 3 % (0-10); HEMATOCRIT 28 % (35-52); HEMOGLOBIN 8.8 g/dL (11.5-16.0); LYMPHOCYTES # (AUTO) 0.4 10^3/uL (1.0-4.0); LYMPHOCYTES % (AUTO) 7 % (12-44); MEAN CORPUSCULAR HEMOGLOBIN 27 pg (25-34); MEAN CORPUSCULAR HGB CONC 31 g/dL (32-36); MEAN CORPUSCULAR VOLUME 87 fL (80-99); MONOCYTES # (AUTO) 0.2 10^3/uL (0.0-1.0); MONOCYTES % (AUTO) 3 % (0-12); NEUTROPHILS # (AUTO) 4.8 10^3/uL (1.8-7.8); NEUTROPHILS % (AUTO) 86 % (42-75); PLATELET COUNT 100 10^3/uL (130-400); WHITE BLOOD COUNT 5.5 10^3/uL (4.3-11.0)
[2020-08-07 03:55] LABS: ALBUMIN 2.2 GM/DL (3.2-4.5)
[2020-08-07 03:56] LABS: CHLORIDE 99 MMOL/L (98-107); POTASSIUM 3.2 MMOL/L (3.6-5.0); SODIUM 133 MMOL/L (135-145)
[2020-08-07 03:57] LABS: CALCIUM 7.5 MG/DL (8.5-10.1)
[2020-08-07 03:58] LABS: GLUCOSE 87 MG/DL (70-105); TOTAL PROTEIN 4.3 GM/DL (6.4-8.2)
[2020-08-07 03:59] LABS: CARBON DIOXIDE 24 MMOL/L (21-32)
[2020-08-07 04:00] LABS: BILIRUBIN,TOTAL 0.3 MG/DL (0.1-1.0)
[2020-08-07 04:01] LABS: ALKALINE PHOSPHATASE 44 U/L (40-136); GFR ESTIMATED > 60
[2020-08-07 04:03] LABS: BUN/CREATININE RATIO 30
[2020-08-07 04:04] LABS: ALANINE AMINOTRANSFERASE 19 U/L (0-55)
--- NOTE | 2020-08-07 04:07 | Pulmonary Progress Note ---
Subjective Time Seen by a Provider: 04:01 Subjective/Events-last exam Pt is requiring BiPAP 100%. Sepsis Event Evaluation Height, Weight, BMI Height: '" Weight: lbs. oz. kg; 26.88 BMI Method: Focused Exam Lactate Level 08/04/20 08:45: Lactic Acid Level 2.72*H 08/04/20 11:15: Lactic Acid Level 1.21 Exam Exam Vital Signs Date Time Temp Pulse Resp B/P (MAP) Pulse Ox O2 Delivery O2 Flow Rate FiO2 08/07/20 03:14 90 30 90 100.00 08/07/20 00:00 36.9 08/06/20 21:51 97 26 95 100.00 08/06/20 21:16 37.4 08/06/20 20:06 38.7 08/06/20 20:06 101 146/65 08/06/20 20:02 38.7 NIV Bilevel 100.00 08/06/20 20:00 94 NIV Bilevel 100 08/06/20 18:00 93 24 112/52 (72) 95 NIV Bilevel 100.00 08/06/20 17:00 92 20 113/57 (75) 96 NIV Bilevel 100.00 08/06/20 16:12 NIV Bilevel 100.00 08/06/20 16:00 89 25 107/51 (69) 84 NIV Bilevel 90.00 08/06/20 15:44 36.7 08/06/20 15:00 87 30 105/59 (74) 92 NIV Bilevel 90.00 08/06/20 14:23 84 21 96 85.00 08/06/20 14:00 84 22 112/62 (79) 97 NIV Bilevel 90.00 08/06/20 13:14 81 08/06/20 13:00 83 20 125/71 (89) 95 NIV Bilevel 90.00 08/06/20 12:00 83 18 100/59 (73) 94 NIV Bilevel 90.00 08/06/20 11:00 87 19 99/62 (74) 92 NIV Bilevel 90.00 08/06/20 10:42 92 33 92 85.00 08/06/20 10:00 96 20 110/66 (81) 91 NIV Bilevel 90.00 08/06/20 09:55 37.1 08/06/20 09:00 90 26 107/65 (79) 91 NIV Bilevel 90.00 08/06/20 08:00 90 27 116/62 (80) 94 NIV Bilevel 90.00 08/06/20 07:32 NIV Bilevel 85 08/06/20 07:32 37.4 08/06/20 07:00 93 28 112/63 (79) 92 NIV Bilevel 90.00 08/06/20 06:45 98 38 92 85.00 08/06/20 06:23 95 08/06/20 06:13 NIV Bilevel 85.00 08/06/20 06:00 87 23 111/59 (76) 92 NIV Bilevel 90.00 08/06/20 05:00 86 21 116/60 (78) 94 NIV Bilevel 90.00 08/06/20 04:30 84 28 112/57 (75) 95 NIV Bilevel 90.00 I & O 08/07/20 07:00 Intake Total 2870 ml Output Total 850 ml Balance 2020 ml Height & Weight Height: '" Weight: lbs. oz. kg; 26.88 BMI Method: General Appearance: No Apparent Distress, WD/WN, Anxious HEENT: PERRL/EOMI, Moist Mucous Membranes; No Scleral Icterus (L), No Scleral Icterus (R) Neck: Normal Inspection, Supple Respiratory: No Respiratory Distress, Decreased Breath Sounds, Wheezing Cardiovascular: No Edema, No Murmur, Tachycardia Capillary Refill: Less Than 3 Seconds Extremity: Normal Inspection, Non Tender, No Pedal Edema Neurologic/Psychiatric: Alert, Oriented x3, No Motor/Sensory Deficits, Normal Mood/Affect Skin: Normal Color, Warm/Dry Results Lab Laboratory Tests 08/06/20 04:08 08/07/20 03:24 Assessment/Plan Assessment/Plan Acute respiratory failure due to COVID-19 with severe ARDS -BIPAP/Vapotherm as needed, oxygen need slowly improving -Currently on BiPAP 100% -Will proceed with intubation -Check DDImer, PCT and BNP -Proning x 16 hrs Possible bacterial pneumonia - Vancomycin and Cefepime for possible bacterial pneumonia Hypotension s/p Decadron s/p remdesivir and convalescent plasma Currenlty on Levophed Hypokalemia -Replace Thrombocytopenia-- improving HIT Abx is negative D/C Angiomax -Repeat DDimer Nausea and vomiting Antiemetics as needed Hyponatremia Hypokalemia Monitor and replace as needed Debility PT/OT DVT ppx: LoveTITO Gaitan DO Aug 07, 2020 04:06
[2020-08-07] MEDS: NOREPINEPHRINE 4 MG/250 ML 250 ML IV SCH ×2 (04:24→17:50)
[2020-08-07] MEDS: KCL 20 MEQ TAB (K-DUR) PO SCH (04:25)
[2020-08-07] MEDS: POTASSIUM CL 10MEQ/50ML IVPB 50 ML IV SCH ×7 (04:25→11:16)
[2020-08-07] MEDS: inSUlin ASPART (NovoLOG) 1 UNIT/0.01 ML (CHARGE PER UNIT) SC SCH ×4 (04:26→23:01)
[2020-08-07 04:34] LABS: PHOSPHORUS 2.5 MG/DL (2.3-4.7)
[2020-08-07 04:36] LABS: MAGNESIUM 1.9 MG/DL (1.6-2.4)
[2020-08-07] MEDS: MAGNESIUM 1 GM/100 ML IVPB 100 ML IV SCH (04:37)
[2020-08-07] MEDS: LACTATED RINGERS 1,000 ML IV SCH ×3 (05:02→18:10)
[2020-08-07] MEDS ORDERED: PROPOFOL DRIP (ICU) 100 ML IV ONE (06:30)
[2020-08-07] MEDS ORDERED: MIDAZOLAM 5 MG/5 ML (VERSED) VIAL ONE (06:34)
[2020-08-07] MEDS ORDERED: fentaNYL INJECTION 100 MCG/2 ML AMP ONE (06:34)
[2020-08-07] MEDS ORDERED: MIDAZOLAM 5 MG/5 ML (VERSED) VIAL IVP ONE (06:55)
--- NOTE | 2020-08-07 07:12 | Pulmonary Procedures ---
Pulmonary Procedures Date of Procedure Date of Service: Aug 07, 2020 Reason for Intubation: Acute respiratory failure Time of Intubation: 07:12 Intubation Method: orotracheal Tube Size: 8 Medications: Fentanyl, Propofol, Rocuronium, Versed Positive End Tide CO2: Yes Breath Sounds after Intubation: bilateral-equal Intubation Complications: no complications Post Intubation Xray: Yes TITO STEVE DO Aug 07, 2020 07:12
[2020-08-07] MEDS: UMECLIDINIUM BROMIDE (INCRUSE ELLIPTA) 7'S IH SCH (07:24)
[2020-08-07] MEDS: ADVAIR HFA 115/21 MCG INHALER 8 GM IH SCH ×2 (07:24→19:05)
--- NOTE | 2020-08-07 07:53 | Diagnostic Imaging Report ---
INDICATION: Intubation, infiltrate. TECHNIQUE: Single view chest 7:18 AM. CORRELATION STUDY: 08/06/2020 FINDINGS: There has been interval intubation. Endotracheal tube tip superimposed over the trachea at approximately the level of the aortic arch. Gastric tube has been placed, passed below the left diaphragm. Left-sided central line remains in place. Heart size and mediastinum are generally stable. Extensive 5 lobe infiltrate does persist. Overall likely generally stable to perhaps slightly progressed from prior. IMPRESSION: 1. Interval intubation and placement of gastric tube. 2. Extensive 5 lobe infiltrates stable to slightly progressed from prior. Dictated by: Dictated on workstation # [id number]
[2020-08-07] MEDS: PROPOFOL DRIP (ICU) 100 ML IV SCH ×4 (08:03→22:55)
[2020-08-07] MEDS: PANTOPRAZOLE 40 MG (PROTONIX) VIAL IV SCH (09:16)
[2020-08-07] MEDS: VITAMIN D3 125 MCG (5,000 UNITS) CAPSULE PO SCH ×2 (09:16→09:18)
[2020-08-07] MEDS: ENOXAPARIN 40 MG/0.4 ML (LOVENOX) SYR SC SCH (09:17)
[2020-08-07 09:41] LABS: ABG BASE EXCESS 1.8 MMOL/L (-2.5-2.5); ABG OXYGEN SATURATION 96 % (94-100); ABG PCO2 45 MMHG (35-45); ABG PH 7.39 (7.37-7.43); ABG PO2 84 MMHG (79-93); ABG TCO2 27.8 MMOL/L (21.0-31.0)
[2020-08-07 09:43] LABS: ALLENS TEST YES-POS
[2020-08-07 09:44] LABS: INSPIRED O2 100%; PATIENT TEMP 98.3; VENTILATOR YES
[2020-08-07] MEDS: fentaNYL DRIP PRE-MIX 250 ML IV SCH (10:14)
--- NOTE | 2020-08-07 10:33 | Physical Therapy Progress Note ---
Therapy Progress Note Patient sedated and intubated on this date. Will continue to monitor patient status. CRISTINO JEFFREY PT Aug 07, 2020 10:33
--- NOTE | 2020-08-07 11:00 | Occ Therapy Progress Note ---
Therapy Progress Note Patient sedated/ intubated on this date. OT to continue to monitor patient status and initiate when medically stable. JOYCE BLAIR OTR Aug 07, 2020 11:00
[2020-08-07] MEDS ORDERED: DEXTROSE 50% 50 ML (IMS) SYR ONE (11:55)
[2020-08-07] MEDS ORDERED: ROCURONIUM 50 MG/5 ML (ZEMURON) VIAL IV ONE (13:37)
--- NOTE | 2020-08-07 15:28 | NUR ---
During care rounds, it was discussed to start TF. Would recommend [facility] at rate of 15ml/hr with 25ml water flushes q4h for hydration status and to prevent the tube from clogging. Will continue to follow and reassess as pt needs, intake, and status change. Yonas Terry, MS RD LD [phone] cell
[2020-08-07] MEDS: SERTRALINE 50 MG (ZOLOFT) TABLET PO SCH (19:53)
[2020-08-08] VITALS (30 sets, daily range): BP systolic 86–161; BP diastolic 50–94
[2020-08-08] MEDS: NOREPINEPHRINE 4 MG/250 ML 250 ML IV SCH ×2 (01:00→13:40)
[2020-08-08] MEDS: guaiFENesin SYRUP 100 MG/5 ML 10 ML (ROBITUSSIN SF) PO SCH ×6 (01:00→20:09)
[2020-08-08] MEDS: LACTATED RINGERS 1,000 ML IV SCH ×3 (01:56→21:57)
[2020-08-08] MEDS: RT-ALBUTEROL INHALER HFA (VENTOLIN HFA) 18 GM IH SCH ×4 (02:03→18:46)
[2020-08-08 03:16] LABS: ABG OXYGEN SATURATION 92 % (94-100); ABG PCO2 48 MMHG (35-45); ABG PO2 67 MMHG (79-93); ABG TCO2 26.7 MMOL/L (21.0-31.0)
[2020-08-08 03:17] LABS: BASOPHILS % (AUTO) 0 % (0-10); EOSINOPHILS % (AUTO) 0 % (0-10); HEMATOCRIT 29 % (35-52); HEMOGLOBIN 9.5 g/dL (11.5-16.0); LYMPHOCYTES # (AUTO) 0.5 10^3/uL (1.0-4.0); LYMPHOCYTES % (AUTO) 8 % (12-44); MEAN CORPUSCULAR HEMOGLOBIN 28 pg (25-34); MEAN CORPUSCULAR HGB CONC 33 g/dL (32-36); MEAN CORPUSCULAR VOLUME 87 fL (80-99); MEAN PLATELET VOLUME 10.2 fL (9.0-12.2); MONOCYTES # (AUTO) 0.1 10^3/uL (0.0-1.0); MONOCYTES % (AUTO) 2 % (0-12); NEUTROPHILS # (AUTO) 5.5 10^3/uL (1.8-7.8); NEUTROPHILS % (AUTO) 88 % (42-75); PLATELET COUNT 204 10^3/uL (130-400); WHITE BLOOD COUNT 6.3 10^3/uL (4.3-11.0)
[2020-08-08 03:21] LABS: ABG PH 7.34 (7.37-7.43)
[2020-08-08 03:22] LABS: ALLENS TEST YES-POS; INSPIRED O2 60%; PATIENT TEMP 36.7; VENTILATOR YES
[2020-08-08 03:32] LABS: CHLORIDE 96 MMOL/L (98-107); SODIUM 130 MMOL/L (135-145)
[2020-08-08 03:33] LABS: CALCIUM 7.7 MG/DL (8.5-10.1)
[2020-08-08 03:34] LABS: GLUCOSE 131 MG/DL (70-105)
[2020-08-08 03:35] LABS: CARBON DIOXIDE 20 MMOL/L (21-32)
[2020-08-08 03:38] LABS: CREATININE SERUM 0.43 MG/DL (0.60-1.30); GFR ESTIMATED > 60; PHOSPHORUS 3.1 MG/DL (2.3-4.7)
[2020-08-08 03:39] LABS: BUN/CREATININE RATIO 35
[2020-08-08] MEDS: fentaNYL DRIP PRE-MIX 250 ML IV SCH ×3 (04:14→23:21)
[2020-08-08] MEDS: PROPOFOL DRIP (ICU) 100 ML IV SCH ×4 (04:14→20:37)
--- NOTE | 2020-08-08 04:45 | Pulmonary Progress Note ---
Subjective Time Seen by a Provider: 04:41 Subjective/Events-last exam Sedated on vent. Sepsis Event Evaluation Height, Weight, BMI Height: '" Weight: lbs. oz. kg; 26.88 BMI Method: Exam Exam Vital Signs Date Time Temp Pulse Resp B/P (MAP) Pulse Ox O2 Delivery O2 Flow Rate FiO2 08/08/20 04:14 113/70 08/08/20 02:04 104 24 97 60 08/08/20 01:00 85 08/07/20 23:00 36.3 76 24 104/76 (85) 95 Mechanical Ventilator 60.00 08/07/20 22:55 108/72 08/07/20 22:00 36.3 77 23 104/74 (84) 95 Mechanical Ventilator 60.00 08/07/20 21:00 36.4 79 24 103/69 (80) 94 Mechanical Ventilator 60.00 08/07/20 20:06 36.6 79 24 105/70 (82) 96 Mechanical Ventilator 60.00 08/07/20 20:00 Mechanical Ventilator 60 08/07/20 20:00 80 23 109/70 (83) 96 Mechanical Ventilator 60.00 08/07/20 19:06 79 24 94 60 08/07/20 19:00 77 24 114/68 (83) 96 Mechanical Ventilator 60.00 08/07/20 19:00 78 08/07/20 18:13 Mechanical Ventilator 60.00 08/07/20 18:09 81 114/72 08/07/20 18:00 81 24 114/72 (86) 97 Mechanical Ventilator 70.00 08/07/20 17:00 83 23 114/70 (85) 97 Mechanical Ventilator 70.00 08/07/20 16:00 84 24 105/68 (80) 96 Mechanical Ventilator 70.00 08/07/20 15:00 86 24 106/67 (80) 96 Mechanical Ventilator 70.00 08/07/20 14:59 88 24 96 70 08/07/20 14:00 87 23 108/65 (79) 96 Mechanical Ventilator 70.00 08/07/20 13:00 92 24 110/72 (85) 97 Mechanical Ventilator 70.00 08/07/20 12:39 96 08/07/20 12:00 97 24 120/68 (85) 96 Mechanical Ventilator 70.00 08/07/20 11:40 NIV Bilevel 70.00 08/07/20 11:30 70.00 08/07/20 11:15 100/60 08/07/20 11:00 92 24 100/60 (73) 94 Mechanical Ventilator 90.00 08/07/20 10:59 92 24 97 90 08/07/20 10:15 90.00 08/07/20 10:00 99 23 110/60 (77) 98 Mechanical Ventilator 100.00 08/07/20 09:30 97 Mechanical Ventilator 100 08/07/20 09:00 95 25 118/67 (84) 99 Mechanical Ventilator 100.00 08/07/20 08:03 83 125/69 08/07/20 08:00 96 26 133/126 (128) 98 Mechanical Ventilator 100.00 08/07/20 07:19 85 24 98 100 08/07/20 07:00 92 24 106/64 (78) Mechanical Ventilator 100.00 08/07/20 06:40 93 08/07/20 06:00 86 20 107/58 (74) 94 NIV Bilevel 100.00 08/07/20 05:00 82 22 100/48 (65) 91 NIV Bilevel 100.00 I & O 08/08/20 07:00 Intake Total 2210 ml Output Total 880 ml Balance 1330 ml Height & Weight Height: '" Weight: lbs. oz. kg; 26.88 BMI Method: General Appearance: WD/WN, Anxious, Other (sedated on vent) HEENT: PERRL/EOMI, Moist Mucous Membranes; No Scleral Icterus (L), No Scleral Icterus (R) Neck: Normal Inspection, Supple Respiratory: No Respiratory Distress, Decreased Breath Sounds, Wheezing Cardiovascular: No Edema, No Murmur, Tachycardia Capillary Refill: Less Than 3 Seconds Extremity: Normal Inspection, Non Tender, No Pedal Edema Neurologic/Psychiatric: Normal Mood/Affect Skin: Normal Color, Warm/Dry Results Lab Laboratory Tests 08/07/20 03:24 08/08/20 03:00 Assessment/Plan Assessment/Plan Acute respiratory failure due to COVID-19 with severe ARDS -Start TF -continue ventilator care -Intubated 08/07 -Check DDImer, PCT and BNP -Proning x 16 hrs -Decrease IVF to 30cc/hr Possible bacterial pneumonia - Vancomycin and Cefepime for possible bacterial pneumonia Hypotension s/p Decadron s/p remdesivir and convalescent plasma Currenlty on Levophed Hypokalemia -Replace Thrombocytopenia-- improving HIT Abx is negative D/C Angiomax -Repeat DDimer Nausea and vomiting Antiemetics as needed Hyponatremia Hypokalemia Monitor and replace as needed Debility PT/OT DVT ppx: Lovenox TITO STEVE DO Aug 08, 2020 04:45
[2020-08-08] MEDS: MAGNESIUM 1 GM/100 ML IVPB 100 ML IV SCH (05:01)
[2020-08-08] MEDS: inSUlin ASPART (NovoLOG) 1 UNIT/0.01 ML (CHARGE PER UNIT) SC SCH ×4 (05:01→23:21)
[2020-08-08] MEDS: POTASSIUM CL 10MEQ/50ML IVPB 50 ML IV SCH (05:01)
[2020-08-08] MEDS: KCL 20 MEQ TAB (K-DUR) PO SCH (05:01)
[2020-08-08] MEDS: CEFEPIME INJECTION 1,000 MG in WATER (STERILE) FOR INJECTION 10 ML IV SCH ×4 (05:09→23:22)
[2020-08-08] MEDS: ADVAIR HFA 115/21 MCG INHALER 8 GM IH SCH ×2 (06:57→18:45)
[2020-08-08] MEDS: UMECLIDINIUM BROMIDE (INCRUSE ELLIPTA) 7'S IH SCH (06:58)
--- NOTE | 2020-08-08 07:45 | NUR ---
TIMELINE NOTE: 45: PT TURNED FROM PRONE TO SUPINE POSITION. OXYGEN SATURATIONS IMMEDIATELY TO 71-74% DESPITE 100% FI02. RT IN ROOM. DR STEVE ON THE UNIT AND NOTIFIED. XRAY IN ROOM POST TURN FOR CXR. 819- ROOM PREPPED FOR EMERGENT CHEST TUBE INSERTION FOR PNEUMOTHORAX ON CXR. DR STEVE IN THE ROOM. PEEP DECREASED TO 10 WITH SATS IN THE 70'S. DR STEVE PROCEEDS WITH EMERGENT PROCEDURE. 827- PT GRIMACING WITH PAIN, 5ML PROPOFOL BOLUS GIVEN PER DR STEVE. 831- CHEST TUBE IN PLACE WITH BUBBLING NOTED IN [facility]. PEEP INCREASED BACK TO [address] STEVE. OXYGEN SATURATIONS CLIMB TO MID 90'S. STAT CHEST XRAY ORDERED. PT TOLERATE WELL WITH STABLE VITALS AT THIS TIME. 899- DR STEVE BACK IN ROOM TO ADVANCE CHEST TUBE. ASSISTED BY DAISHA, SURGERY RN. NO COMPLICATIONS NOTED. 929- SPOKE WITH PATIENTS SON, AMANDA PAEZ, AND UPDATED ON NEED FOR EMERGENT CHEST TUBE PLACEMENT. UNDERSTANDING AND APPRECIATIVE OF CARE AND STABILIZATION OF MOTHER. OXYGEN SATURATIONS CONTINUE IN HIGH 90'S, WILL TITRATE FIO2 TOLERATED.
--- NOTE | 2020-08-08 07:53 | Physical Therapy Progress Note ---
Therapy Progress Note Patient continues to be intubated and sedated. Will monitor and start again when appropriate. NEGRO ROBLES PT Aug 08, 2020 07:53
[2020-08-08] MEDS ORDERED: LIDOCAINE 1% INJ 20 ML 20 ML VIAL ONE (08:21)
--- NOTE | 2020-08-08 08:58 | Pulmonary Progress Note ---
Standard Progress Note Progress Notes Date Seen by Provider: Aug 08, 2020 Time Seen by Provider: 07:30 Upon reviewing CXR pt has large PTX. I went to evaluate pt and she was hypoxic in low 80's and quickly desaturated in to 70'S. Discussed with RN at bedside and emergent chest tube was placed. Assessment & Plan Acute respiratory failure due to COVID-19 with severe ARDS -Start TF -continue ventilator care -Intubated 08/07 -Check DDImer, PCT and BNP -Proning x 16 hrs -Decrease IVF to 30cc/hr Acute PTX -Will place chest tube. Possible bacterial pneumonia - Vancomycin and Cefepime for possible bacterial pneumonia Hypotension s/p Decadron s/p remdesivir and convalescent plasma Currenlty on Levophed Hypokalemia -Replace Thrombocytopenia-- improving HIT Abx is negative D/C Angiomax -Repeat DDimer Nausea and vomiting Antiemetics as needed Hyponatremia Hypokalemia Monitor and replace as needed Debility PT/OT DVT ppx: Lovenox Critical Care: Critically Ill Patient Time spent with patient (mins): 60 TITO STEVE DO Aug 08, 2020 08:58
--- NOTE | 2020-08-08 09:01 | Pulmonary Procedures ---
Pulmonary Procedures Date of Procedure Date of Service: Aug 08, 2020 Chest Tube : Chest Tube Position: Left Chest Tube Location: Mid-Axillary Chest Size of [place] Tube (cm): 32 Chest Tube Procedure: betadine prep, sterile drapes applied, sterile dressing applied Islas of Air [place]: Yes Number of Attempts: 1 TITO STEVE DO Aug 08, 2020 09:01
--- NOTE | 2020-08-08 09:10 | Diagnostic Imaging Report ---
INDICATION: Infiltrate, intubated. TECHNIQUE: Single view chest at 7:43 AM. CORRELATION STUDY: 08/07/2020. FINDINGS: Endotracheal tube projects over the trachea below the clavicles above the jeffrey. Gastric tube passes below the left hemidiaphragm. Left upper extremity central line tip over the SVC. There has been development of a rather large left-sided pneumothorax since prior study. Significant collapse of left lung. Extensive infiltrate throughout both lungs does persist, overall perhaps slightly improved. There is no appreciable shift of the mediastinal structures remaining in midline. IMPRESSION: 1. Development of a rather large left-sided pneumothorax from prior. 2. Extensive bilateral pulmonary infiltrates are present but may be slightly improved. (Telephone call was made to Dr. Campbell at time of review. He is aware.) Dictated by: Dictated on workstation # [id number]
--- NOTE | 2020-08-08 09:12 | Diagnostic Imaging Report ---
INDICATION: Chest tube placement. Pneumothorax. FINDINGS: Since the earlier exam, there has been placement of a chest tube on the left with re-expansion of the left lung. There is a tiny apical pneumothorax remaining. The infiltrates are stable. The ET tube is in good position. An OG tube is in the stomach. Left arm PICC line tip is in the SVC. IMPRESSION: Interval placement of a chest tube on the left with re-expansion of the left lung. There is a tiny left apical pneumothorax. Dictated by: Dictated on workstation # [id number]
[2020-08-08] MEDS: PANTOPRAZOLE 40 MG (PROTONIX) VIAL IV SCH (09:49)
[2020-08-08] MEDS: VITAMIN D3 125 MCG (5,000 UNITS) CAPSULE PO SCH (09:50)
[2020-08-08] MEDS: ENOXAPARIN 40 MG/0.4 ML (LOVENOX) SYR SC SCH (09:50)
--- NOTE | 2020-08-08 10:34 | Diagnostic Imaging Report ---
HISTORY: Replaced chest tube. TECHNIQUE: Frontal view of the chest. COMPARISON: Radiographs from the same day. FINDINGS: The endotracheal tube is 3.5 cm from the jeffrey. The left PICC line tip projects over the low SVC. There are extensive heterogeneous opacities throughout the lungs bilaterally with basilar predominance. There is a left-sided chest tube and the tip appears to be at the left midlung. A trace left apical pneumothorax is seen measuring about 4 mm, stable since the prior study. 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 The heart is normal in size. There is no significant pleural effusion. IMPRESSION: 1. Left chest tube with the tip near the midlung. Stable trace left apical pneumothorax. 2. Marked heterogeneous pulmonary opacities bilaterally, stable since the prior exam. Dictated by: Dictated on workstation # [id number]
--- NOTE | 2020-08-08 17:26 | NUR ---
During care rounds it was noted that pt is currently receiving Pulmocare 1.5 at rate of 15ml/hr with 25ml free water flushes q4h. Would recommend maintain current rate at this time. Will continue to follow and reassess as pt needs, intake, and status change. Yonas Terry, MS RD LD [phone] cell
[2020-08-08] MEDS: SERTRALINE 50 MG (ZOLOFT) TABLET PO SCH (20:08)
[2020-08-08] MEDS ORDERED: LACTATED RINGERS 1,000 ML IV SCH (22:30)
[2020-08-09] VITALS (29 sets, daily range): BP systolic 79–130; BP diastolic 36–84
[2020-08-09] MEDS: NOREPINEPHRINE 4 MG/250 ML 250 ML IV SCH ×3 (00:27→23:10)
[2020-08-09] MEDS: guaiFENesin SYRUP 100 MG/5 ML 10 ML (ROBITUSSIN SF) PO SCH ×6 (01:00→19:55)
[2020-08-09] MEDS: PROPOFOL DRIP (ICU) 100 ML IV SCH ×2 (02:50→08:53)
[2020-08-09 03:30] LABS: CHLORIDE 97 MMOL/L (98-107)
[2020-08-09 03:36] LABS: PHOSPHORUS 1.5 MG/DL (2.3-4.7)
[2020-08-09 03:42] LABS: POTASSIUM 4.2 MMOL/L (3.6-5.0); SODIUM 132 MMOL/L (135-145)
[2020-08-09 03:44] LABS: CALCIUM 6.5 MG/DL (8.5-10.1); GLUCOSE 99 MG/DL (70-105); TRIGLYCERIDES 640 MG/DL (<150)
[2020-08-09 03:46] LABS: CARBON DIOXIDE 25 MMOL/L (21-32)
[2020-08-09 03:48] LABS: CREATININE SERUM 0.41 MG/DL (0.60-1.30); GFR ESTIMATED > 60
[2020-08-09 03:49] LABS: BUN/CREATININE RATIO 39
[2020-08-09 03:50] LABS: MAGNESIUM 1.9 MG/DL (1.6-2.4)
[2020-08-09] MEDS: ACETAMINOPHEN 325 MG TABLET PO PRN (06:00)
[2020-08-09] MEDS: POTASSIUM CL 10MEQ/50ML IVPB 50 ML IV SCH (06:00)
[2020-08-09] MEDS: CEFEPIME INJECTION 1,000 MG in WATER (STERILE) FOR INJECTION 10 ML IV SCH ×4 (06:00→23:10)
[2020-08-09] MEDS: inSUlin ASPART (NovoLOG) 1 UNIT/0.01 ML (CHARGE PER UNIT) SC SCH ×4 (06:00→23:10)
[2020-08-09] MEDS: MAGNESIUM 1 GM/100 ML IVPB 100 ML IV SCH (06:00)
[2020-08-09 07:07] LABS: BASOPHILS % (AUTO) 0 % (0-10); EOSINOPHILS # (AUTO) 0.2 10^3/uL (0.0-0.3); EOSINOPHILS % (AUTO) 2 % (0-10); HEMATOCRIT 24 % (35-52); HEMOGLOBIN 7.8 g/dL (11.5-16.0); LYMPHOCYTES # (AUTO) 0.8 10^3/uL (1.0-4.0); LYMPHOCYTES % (AUTO) 11 % (12-44); MEAN CORPUSCULAR HEMOGLOBIN 28 pg (25-34); MEAN CORPUSCULAR HGB CONC 32 g/dL (32-36); MEAN CORPUSCULAR VOLUME 87 fL (80-99); MONOCYTES # (AUTO) 0.3 10^3/uL (0.0-1.0); MONOCYTES % (AUTO) 4 % (0-12); NEUTROPHILS # (AUTO) 5.7 10^3/uL (1.8-7.8); NEUTROPHILS % (AUTO) 81 % (42-75); PLATELET COUNT 243 10^3/uL (130-400)
[2020-08-09] MEDS: KCL 20 MEQ TAB (K-DUR) PO SCH (07:20)
[2020-08-09] MEDS: PANTOPRAZOLE 40 MG (PROTONIX) VIAL IV SCH (08:33)
[2020-08-09] MEDS: VITAMIN D3 125 MCG (5,000 UNITS) CAPSULE PO SCH (08:33)
[2020-08-09] MEDS: fentaNYL DRIP PRE-MIX 250 ML IV SCH ×2 (08:52→17:48)
[2020-08-09] MEDS: LACTATED RINGERS 1,000 ML IV SCH ×2 (08:53→19:55)
[2020-08-09] MEDS ORDERED: SODIUM PHOSPHATE INJ 30 MM in NS (IVPB) 250 ML INJ NR (09:15)
[2020-08-09] MEDS ORDERED: FLUCONAZOLE 200 MG/100 ML 100 ML IV NR (09:15)
--- NOTE | 2020-08-09 09:18 | Pulmonary Progress Note ---
Subjective Time Seen by a Provider: 09:13 Sepsis Event Evaluation Height, Weight, BMI Height: '" Weight: lbs. oz. kg; 26.88 BMI Method: Exam Exam Vital Signs Date Time Temp Pulse Resp B/P (MAP) Pulse Ox O2 Delivery O2 Flow Rate FiO2 08/09/20 08:56 Mechanical Ventilator 60.00 08/09/20 08:53 82 104/55 08/09/20 06:00 37.7 71 24 79/41 (54) 92 Mechanical Ventilator 50.00 08/09/20 05:00 37.6 67 23 81/47 (58) 92 Mechanical Ventilator 50.00 08/09/20 04:00 37.6 66 23 86/54 (65) 92 Mechanical Ventilator 50.00 08/09/20 03:00 37.5 70 23 88/52 (64) 93 Mechanical Ventilator 50.00 08/09/20 02:00 37.4 64 24 86/50 (62) 92 Mechanical Ventilator 50.00 08/09/20 01:00 37.3 65 24 84/52 (63) 92 Mechanical Ventilator 50.00 08/09/20 01:00 67 08/09/20 00:00 37.2 68 24 90/57 (68) 92 Mechanical Ventilator 50.00 08/08/20 23:00 37.4 68 24 88/50 (63) 94 Mechanical Ventilator 50.00 08/08/20 22:18 70 24 91 50 08/08/20 22:00 37.4 70 24 97/53 (68) 90 Mechanical Ventilator 50.00 08/08/20 21:00 37.4 89 24 92/55 (67) 90 Mechanical Ventilator 50.00 08/08/20 20:37 92/54 08/08/20 20:05 37.3 71 24 103/57 (72) 91 Mechanical Ventilator 50.00 08/08/20 20:00 37.3 75 24 96/55 (69) 91 Mechanical Ventilator 50.00 08/08/20 19:45 Mechanical Ventilator 60 08/08/20 19:00 72 08/08/20 19:00 37.3 72 24 111/62 (78) 91 Mechanical Ventilator 50.00 08/08/20 18:47 73 24 91 50 08/08/20 18:00 37.3 65 24 99/55 (70) 94 Mechanical Ventilator 40.00 08/08/20 17:00 37.2 68 23 90/53 (65) 95 Mechanical Ventilator 40.00 08/08/20 16:00 37.2 71 16 90/51 (64) 89 Mechanical Ventilator 40.00 08/08/20 15:12 71 24 92 40 08/08/20 15:00 37.1 67 23 97/57 (70) 96 Mechanical Ventilator 40.00 08/08/20 14:00 36.9 64 23 89/52 (64) 97 Mechanical Ventilator 40.00 08/08/20 14:00 40.00 08/08/20 13:59 64 91/51 08/08/20 13:00 36.8 64 24 91/51 (64) 99 Mechanical Ventilator 50.00 08/08/20 12:30 63 08/08/20 12:01 50.00 08/08/20 12:00 36.8 64 23 94/53 (67) 92 Mechanical Ventilator 70.00 08/08/20 11:00 36.8 64 24 112/69 (83) 98 Mechanical Ventilator 70.00 08/08/20 10:55 64 24 99 60 08/08/20 10:15 70.00 08/08/20 10:00 80.00 08/08/20 10:00 36.7 72 28 112/68 (83) 94 Mechanical Ventilator 80.00 08/08/20 09:49 79 161/94 08/08/20 09:30 90.00 I & O 08/09/20 07:00 Intake Total 660 ml Output Total 733 ml Balance -73 ml Height & Weight Height: '" Weight: lbs. oz. kg; 26.88 BMI Method: General Appearance: WD/WN, Anxious, Other (sedated on vent) HEENT: PERRL/EOMI, Moist Mucous Membranes; No Scleral Icterus (L), No Scleral Icterus (R) Neck: Normal Inspection, Supple Respiratory: No Respiratory Distress, Decreased Breath Sounds, Wheezing Cardiovascular: No Edema, No Murmur, Tachycardia Capillary Refill: Less Than 3 Seconds Extremity: Normal Inspection, Non Tender, No Pedal Edema Neurologic/Psychiatric: Normal Mood/Affect Skin: Normal Color, Warm/Dry Results Lab Laboratory Tests 08/08/20 03:00 08/09/20 02:59 Assessment/Plan Assessment/Plan Acute respiratory failure due to COVID-19 with severe ARDS -Start TF -continue ventilator care -Intubated 08/07 -Check DDImer, PCT and BNP -s/p Decadron s/p remdesivir and convalescent plasma -Proning x 16 hrs -Decrease IVF to 30cc/hr Possible bacterial pneumonia - Vancomycin and Cefepime for possible bacterial pneumonia Hypotension Currenlty on Levophed Hypokalemia -Replace Thrombocytopenia-- improving HIT Abx is negative D/C Angiomax -Repeat DDimer Nausea and vomiting Antiemetics as needed Hyponatremia Hypokalemia Monitor and replace as needed Debility PT/OT DVT ppx: Lovenox TITO STEVE DO Aug 09, 2020 09:18
[2020-08-09] MEDS: ADVAIR HFA 115/21 MCG INHALER 8 GM IH SCH ×2 (10:32→19:01)
[2020-08-09] MEDS: RT-ALBUTEROL INHALER HFA (VENTOLIN HFA) 18 GM IH SCH ×3 (10:32→19:01)
--- NOTE | 2020-08-09 10:50 | Diagnostic Imaging Report ---
Portable erect AP chest at 1022 hours. INDICATION: Respiratory distress. FINDINGS: The diffuse alveolar/interstitial pulmonary infiltrates involving both lungs seen on the prior exam of 08/08/2020 are again evident and essentially no different. There is still no significant pleural effusion identified. The heart is stable in size. The mediastinum is not widened. The osseous structures are intact. The supportive tubes and lines seen previously seems similar in position. IMPRESSION: Stable chest. There has been no adverse change since the prior exam. Dictated by: Dictated on workstation # [id number]
[2020-08-09] MEDS ORDERED: NS IV 1000 ML 1,000 ML ONE (11:13)
--- NOTE | 2020-08-09 12:52 | Physical Therapy Progress Note ---
Therapy Progress Note Pt remains intubated and sedated. Sedation has been decreased this date. PROM performed B U/LE in availabe planes. Pt able to follow cues and did assist with ROM this date. DANIEL BLAS PT Aug 09, 2020 12:52
[2020-08-09] MEDS: MIDAZOLAM DRIP PRE-MIX 100 ML IV SCH ×2 (12:57→15:14)
[2020-08-09] MEDS: ENOXAPARIN 40 MG/0.4 ML (LOVENOX) SYR SC SCH (12:57)
--- NOTE | 2020-08-09 13:02 | Anesthesia-Procedure Note ---
Procedures/Interventions Procedure Start/Stop/Diagnosis Date of Procedure: Aug 09, 2020 Start Time: 11:50 Referring Physician: Shannan Brief History Called to ICU 8 for arterial line placement. Patient is COVID positive and on ventilator; however, she opens her eyes to verbal commands and responds to questions by nodding her head. She is on propofol and fentanyl gtt. 20g art line placed in left radial x 2 attempts. Opsite covering. Reported off to RN. The patient tolerated the procedure well. Stop Time: 12:20 Arterial Line Arterial Line Catheter: 20G Type: Radial Location: Left Procedure: prepped, draped in sterile fashion, good wave-form was obtained, patient tolerated procedure well, no immediate complications, post procedure area cleaned, post procedure dressing applied LIZZIE PAGE CRNA Aug 09, 2020 13:02
[2020-08-09 14:33] LABS: ABG BASE EXCESS 4.8 MMOL/L (-2.5-2.5); ABG OXYGEN SATURATION 95 % (94-100); ABG PCO2 51 MMHG (35-45); ABG PH 7.39 (7.37-7.43); ABG PO2 77 MMHG (79-93); ABG TCO2 30.9 MMOL/L (21.0-31.0)
[2020-08-09 14:35] LABS: ALLENS TEST YES-POS
[2020-08-09 14:36] LABS: INSPIRED O2 60%; VENTILATOR NO
--- NOTE | 2020-08-09 14:53 | NUR ---
PT CHEST TUBE APPEARED TO BE CLOTTED. ATTEMPTED TO MILK TUBING AND RETURNED TWO LARGE CLOTS. LARGE CLOT COULD STILL BE SEEN. PER DR STEVE, FLUSH WITH STERILE SOLUTION. WITH THE ASSISTANCE OF JAS POND CHEST TUBE WAS FLUSHED WITH APPROX 15ML OF STERILE WATER WITH RETURN OF LARGE CLOT. THIS WAS DRAINED AND LINE CLEARED. PT TOLERATED WELL.
--- NOTE | 2020-08-09 15:37 | NUR ---
During care rounds, it was noted that pt is receiving TF of Pulmocare at 15ml/hr with 25ml free water flushes q4h. Recommended conservative increases of 10ml q12h as tolerated, toward goal rate of 35ml/hr. Will continue to follow and reassess as pt needs, intake, and status change. Yonas Terry, MS RD LD [phone] cell
[2020-08-09] MEDS: SERTRALINE 50 MG (ZOLOFT) TABLET PO SCH (19:55)
[2020-08-10] VITALS (30 sets, daily range): BP systolic 77–181; BP diastolic 36–97
[2020-08-10] MEDS: guaiFENesin SYRUP 100 MG/5 ML 10 ML (ROBITUSSIN SF) PO SCH ×6 (01:03→20:15)
[2020-08-10] MEDS: fentaNYL DRIP PRE-MIX 250 ML IV SCH ×4 (01:04→20:15)
[2020-08-10] MEDS: ACETAMINOPHEN 325 MG TABLET PO PRN ×2 (03:17→17:11)
[2020-08-10] MEDS: RT-ALBUTEROL INHALER HFA (VENTOLIN HFA) 18 GM IH SCH ×4 (03:21→18:17)
[2020-08-10 03:37] LABS: ABG BASE EXCESS 4.5 MMOL/L (-2.5-2.5); ABG OXYGEN SATURATION 88 % (94-100); ABG PCO2 49 MMHG (35-45); ABG PO2 64 MMHG (79-93); ABG TCO2 30.1 MMOL/L (21.0-31.0)
[2020-08-10 03:38] LABS: BASOPHILS % (AUTO) 0 % (0-10); EOSINOPHILS # (AUTO) 0.2 10^3/uL (0.0-0.3); EOSINOPHILS % (AUTO) 3 % (0-10); HEMATOCRIT 26 % (35-52); HEMOGLOBIN 8.2 g/dL (11.5-16.0); LYMPHOCYTES # (AUTO) 0.8 10^3/uL (1.0-4.0); LYMPHOCYTES % (AUTO) 10 % (12-44); MEAN CORPUSCULAR HEMOGLOBIN 28 pg (25-34); MEAN CORPUSCULAR HGB CONC 32 g/dL (32-36); MEAN CORPUSCULAR VOLUME 87 fL (80-99); MEAN PLATELET VOLUME 9.5 fL (9.0-12.2); MONOCYTES # (AUTO) 0.3 10^3/uL (0.0-1.0); MONOCYTES % (AUTO) 4 % (0-12); NEUTROPHILS # (AUTO) 6.5 10^3/uL (1.8-7.8); NEUTROPHILS % (AUTO) 79 % (42-75); PLATELET COUNT 295 10^3/uL (130-400); WHITE BLOOD COUNT 8.3 10^3/uL (4.3-11.0)
[2020-08-10 03:48] LABS: CHLORIDE 98 MMOL/L (98-107); POTASSIUM 3.1 MMOL/L (3.6-5.0); SODIUM 132 MMOL/L (135-145)
[2020-08-10 03:50] LABS: CALCIUM 7.2 MG/DL (8.5-10.1); GLUCOSE 101 MG/DL (70-105)
[2020-08-10 03:52] LABS: CARBON DIOXIDE 25 MMOL/L (21-32)
[2020-08-10 03:54] LABS: ALLENS TEST ARTLINE; GFR ESTIMATED > 60; INSPIRED O2 100%; PATIENT TEMP 38.9; PHOSPHORUS 2.9 MG/DL (2.3-4.7); VENTILATOR YES
[2020-08-10 03:55] LABS: BUN/CREATININE RATIO 33
[2020-08-10 03:56] LABS: MAGNESIUM 1.7 MG/DL (1.6-2.4)
[2020-08-10] MEDS: NOREPINEPHRINE 4 MG/250 ML 250 ML IV SCH ×2 (04:12→20:17)
[2020-08-10] MEDS: POTASSIUM CL 10MEQ/50ML IVPB 50 ML IV SCH ×6 (04:48→10:04)
[2020-08-10] MEDS: KCL 20 MEQ TAB (K-DUR) PO SCH (04:48)
[2020-08-10] MEDS: inSUlin ASPART (NovoLOG) 1 UNIT/0.01 ML (CHARGE PER UNIT) SC SCH ×4 (04:48→23:01)
[2020-08-10] MEDS: MAGNESIUM 1 GM/100 ML IVPB 100 ML IV SCH ×3 (04:48→08:26)
--- NOTE | 2020-08-10 04:55 | NUR ---
0300 - This RN to bedside to assess pt. O2 saturation in the low 80s, HR incrased to 110-1201, BP increased to 150-180 sys. Pt at 100% FIO2 on the vent. 0305 - Call placed to E-ICU, updated of pts condition and of all vital signs. Dr recommended placing pt on the right side with her good lung down. 0315 - Call placed to E-ICU, updated of continued HTN, no new orders at this time. VS: BP-178/61, HR-117, SpO2-84% 0330 - VS: BP-112/40, HR-106, SpO2-88% 0345 - VS: BP-93/39, HR-105, SpO2-92 0400 - Dr. Campbell to bedside to assess pt. BP decreased to 77/36, levophed started at this time per Dr. Campbell. Chest tube assessed and new dressing placed by Dr. Campbell. 0500 - VS: BP-111/44, HR 80, SpO2-98%
[2020-08-10] MEDS: LACTATED RINGERS 1,000 ML IV SCH (05:53)
--- NOTE | 2020-08-10 06:08 | Pulmonary Progress Note ---
Subjective Time Seen by a Provider: 06:03 Subjective/Events-last exam Called to bedside stat secondary to worsening Hypoxia Sepsis Event Evaluation Height, Weight, BMI Height: '" Weight: lbs. oz. kg; 26.88 BMI Method: Exam Exam Vital Signs Date Time Temp Pulse Resp B/P (MAP) Pulse Ox O2 Delivery O2 Flow Rate FiO2 08/10/20 04:12 73/34 08/10/20 04:00 38.9 102 23 77/36 (50) 95 Mechanical Ventilator 100.00 08/10/20 03:16 120 24 84 100 08/10/20 03:00 38.8 111 25 137/49 (78) 86 Mechanical Ventilator 100.00 08/10/20 02:00 38.7 86 24 104/46 (65) 90 Mechanical Ventilator 100.00 08/10/20 01:00 38.5 87 23 110/48 (68) 90 Mechanical Ventilator 100.00 08/10/20 01:00 84 08/10/20 00:00 38.3 80 24 102/47 (65) 90 Mechanical Ventilator 100.00 08/09/20 23:12 Mechanical Ventilator 100.00 08/09/20 23:00 38.3 84 13 104/50 (68) 89 Mechanical Ventilator 90.00 08/09/20 22:00 38.3 82 21 99/46 (63) 89 Mechanical Ventilator 90.00 08/09/20 21:50 82 24 90 90 08/09/20 21:00 38.3 87 23 95/48 (64) 90 Mechanical Ventilator 85.00 08/09/20 20:12 Mechanical Ventilator 85 08/09/20 20:00 38.1 78 27 118/50 (72) 90 Mechanical Ventilator 85.00 08/09/20 19:57 38.1 84 24 115/49 (71) 90 Mechanical Ventilator 85.00 08/09/20 19:01 83 24 90 80 08/09/20 19:00 82 08/09/20 19:00 38.0 82 23 98/56 (70) 90 Mechanical Ventilator 80.00 08/09/20 18:00 37.9 82 23 105/47 (66) 91 Mechanical Ventilator 80.00 08/09/20 17:00 37.8 81 24 99/47 (64) 93 Mechanical Ventilator 80.00 08/09/20 16:00 38.1 84 24 79/36 (50) 91 Mechanical Ventilator 80.00 08/09/20 15:19 Mechanical Ventilator 80.00 08/09/20 15:14 96 29 94/39 08/09/20 15:00 38.1 92 28 105/42 (63) 88 Mechanical Ventilator 60.00 08/09/20 14:48 97 28 88 70 08/09/20 14:00 37.9 100 23 118/40 (66) 89 Mechanical Ventilator 60.00 08/09/20 13:26 90 08/09/20 13:00 37.9 94 21 123/42 (69) 91 Mechanical Ventilator 60.00 08/09/20 12:00 37.5 111 19 122/68 (86) 90 Mechanical Ventilator 60.00 08/09/20 11:00 37.5 95 27 101/57 (72) 91 Mechanical Ventilator 60.00 08/09/20 10:32 94 25 91 60 08/09/20 10:00 37.6 79 24 102/60 (74) 91 Mechanical Ventilator 60.00 08/09/20 09:00 37.7 82 24 98/52 (67) 93 Mechanical Ventilator 60.00 08/09/20 08:56 Mechanical Ventilator 60.00 08/09/20 08:53 82 104/55 08/09/20 08:30 Mechanical Ventilator 60 08/09/20 08:00 37.5 64 24 104/55 (71) 92 Mechanical Ventilator 50.00 08/09/20 07:00 37.7 65 24 81/49 (60) 92 Mechanical Ventilator 50.00 08/09/20 06:48 66 I & O 08/10/20 07:00 Intake Total 550 ml Output Total 926 ml Balance -376 ml Height & Weight Height: '" Weight: lbs. oz. kg; 26.88 BMI Method: General Appearance: WD/WN, Anxious, Other (sedated on vent) HEENT: PERRL/EOMI, Moist Mucous Membranes; No Scleral Icterus (L), No Scleral Icterus (R) Neck: Normal Inspection, Supple Respiratory: No Respiratory Distress, Decreased Breath Sounds, Wheezing Cardiovascular: No Edema, No Murmur, Tachycardia Capillary Refill: Less Than 3 Seconds Extremity: Normal Inspection, Non Tender, No Pedal Edema Neurologic/Psychiatric: Normal Mood/Affect Skin: Normal Color, Warm/Dry Results Lab Laboratory Tests 08/09/20 02:59 08/10/20 03:25 Assessment/Plan Assessment/Plan Acute respiratory failure due to COVID-19 with severe ARDS -Start TF -continue ventilator care -Intubated 08/07 -DDImer, PCT and BNP -s/p Decadron s/p remdesivir and convalescent plasma -Proning D/C'd secondary to chest tube. -Decrease IVF to 30cc/hr left PTX -Chest tube placement 08/08 -Chest tube system evaluated and dressing changed. Discussed with radiology CXR. -Continue suction to Chest tube Possible bacterial pneumonia - Cefepime Hypotension Currenlty on Levophed Hypokalemia -Replace Thrombocytopenia-- improving - HIT Abx is negative D/C Angiomax -Repeat DDimer Nausea and vomiting Antiemetics as needed Hyponatremia Hypokalemia Monitor and replace as needed Debility PT/OT DVT/GI - ppx: Lovenox, Protonix I called and discussed pt with son. I answered all questions to the best of my ability. TITO STEVE DO Aug 10, 2020 06:08
[2020-08-10] MEDS: CEFEPIME INJECTION 1,000 MG in WATER (STERILE) FOR INJECTION 10 ML IV SCH ×4 (06:47→23:19)
[2020-08-10] MEDS ORDERED: ANIDULAFUNGIN INJECTION 200 MG in NS (IVPB) 250 ML IV NR (07:00)
--- NOTE | 2020-08-10 07:47 | Diagnostic Imaging Report ---
EXAMINATION: Chest radiograph, portable AP view. DATE: 08/10/2020 3:42 AM INDICATION: 74-year-old female, history of left-sided pneumothorax. COVID 19 infection. COMPARISON: August 09, 2020. FINDINGS: The endotracheal tube is approximately 3.2 cm above the jeffrey. There is a left-sided venous line with tip overlying the mid SVC. The nasogastric tube is at the level of the stomach. There is a right shoulder prosthesis. Heart size and mediastinal contours are unchanged. There is a moderate sized left-sided pneumothorax measuring approximately 2.5 cm in the left lung apex. This is a new finding since comparison exam. There is multifocal bilateral lung consolidation with a mid and lower lung zone predominance. IMPRESSION: 1. Moderate size left-sided pneumothorax measuring 2.5 cm in the left lung apex. 2. Redemonstrated multifocal bilateral lung consolidation with a mid and lower lung zone predominance. 3. Support lines and tubes as above. Report was called to [facility]/ICU by mike at 7:47am. Report was faxed to [facility] by mike at 7:42am. Dictated by: Dictated on workstation # [id number]
[2020-08-10] MEDS: ENOXAPARIN 40 MG/0.4 ML (LOVENOX) SYR SC SCH ×2 (08:29→20:15)
[2020-08-10] MEDS: VITAMIN D3 125 MCG (5,000 UNITS) CAPSULE PO SCH (08:30)
[2020-08-10] MEDS: PANTOPRAZOLE 40 MG (PROTONIX) VIAL IV SCH (08:30)
[2020-08-10] MEDS: MIDAZOLAM DRIP PRE-MIX 100 ML IV SCH ×2 (08:31→17:04)
[2020-08-10] MEDS ORDERED: FLUCONAZOLE 100 MG/50 ML IVPB IV SCH ×2 (09:00)
[2020-08-10] MEDS: ADVAIR HFA 115/21 MCG INHALER 8 GM IH SCH ×2 (09:46→18:18)
--- NOTE | 2020-08-10 09:49 | NUR ---
Palliative Care RN and Dr. Campbell went ahead and updated son, Wang on patient's condition while on the phone with him regarding patient's . Currently she is stable.
[2020-08-10] MEDS: PROPOFOL DRIP (ICU) 100 ML IV SCH ×2 (09:50→20:36)
--- NOTE | 2020-08-10 10:26 | Diagnostic Imaging Report ---
Portable semierect AP chest at 929h. INDICATION: Respiratory distress A single AP view was obtained. A reprocessed high technique image was also obtained. The exam performed earlier today at 3:06 AM noted a pneumothorax on the left. The distance from the bony thorax to the lung edge measures 3.5 cm. On this exam the pneumothorax is again evident although it has diminished in size and now measures 1.1 cm. Also, in the interval since the prior study a small amount of subcutaneous emphysema has developed along the periphery of the lower thorax and left. The left-sided chest tube, which was present yet difficult to visualize on the prior exam, is again evident on this study. The chest tube seems to be in good position on the reprocessed high technique image. The overall appearance of the chest has not changed significantly otherwise. There are still diffuse alveolar/interstitial pulmonary infiltrates bilaterally. The heart is stable in size. The mediastinum is not widened. The osseous structures are intact. Bilateral total shoulder prostheses are again seen. The other supportive tubes and lines seem to be in good position. IMPRESSION: 1. The appearance of the chest has improved since the prior exam as the apical pneumothorax on the left seen previously has diminished. The left-sided chest tube appears to be in good position. 2. The overall appearance the chest is otherwise stable. There is persistent involvement of both lungs by pneumonia/atelectasis. 3. These results were discussed with Dr. Hakeem Campbell. I would recommend that when additional follow up studies of this patient be obtained that the reprocessed images with high technique be performed as well to better evaluate the position of the chest tube. Dictated by: Dictated on workstation # [id number]
--- NOTE | 2020-08-10 10:37 | Physical Therapy Progress Note ---
Therapy Progress Note Pt sedated and on ventilator. PROM B U/LE' s all planes. DANIEL BLAS PT Aug 10, 2020 10:37
[2020-08-10] MEDS: SERTRALINE 50 MG (ZOLOFT) TABLET PO SCH (20:15)
[2020-08-11] VITALS (30 sets, daily range): BP systolic 100–145; BP diastolic 44–68
[2020-08-11] MEDS: guaiFENesin SYRUP 100 MG/5 ML 10 ML (ROBITUSSIN SF) PO SCH ×6 (00:34→20:04)
[2020-08-11 02:30] LABS: BASOPHILS % (AUTO) 0 % (0-10); EOSINOPHILS # (AUTO) 0.3 10^3/uL (0.0-0.3); EOSINOPHILS % (AUTO) 3 % (0-10); HEMATOCRIT 25 % (35-52); HEMOGLOBIN 8.1 g/dL (11.5-16.0); LYMPHOCYTES # (AUTO) 0.9 10^3/uL (1.0-4.0); LYMPHOCYTES % (AUTO) 11 % (12-44); MEAN CORPUSCULAR HEMOGLOBIN 28 pg (25-34); MEAN CORPUSCULAR HGB CONC 32 g/dL (32-36); MEAN CORPUSCULAR VOLUME 86 fL (80-99); MEAN PLATELET VOLUME 9.1 fL (9.0-12.2); MONOCYTES # (AUTO) 0.5 10^3/uL (0.0-1.0); MONOCYTES % (AUTO) 6 % (0-12); NEUTROPHILS # (AUTO) 5.7 10^3/uL (1.8-7.8); NEUTROPHILS % (AUTO) 71 % (42-75); PLATELET COUNT 267 10^3/uL (130-400)
[2020-08-11 02:33] LABS: ABG BASE EXCESS 6.4 MMOL/L (-2.5-2.5); ABG OXYGEN SATURATION 96 % (94-100); ABG PCO2 47 MMHG (35-45); ABG PH 7.43 (7.37-7.43); ABG PO2 83 MMHG (79-93); ALLENS TEST ARTLINE; INSPIRED O2 60; PATIENT TEMP 37.6; VENTILATOR YES
[2020-08-11 02:40] LABS: CHLORIDE 96 MMOL/L (98-107); POTASSIUM 3.6 MMOL/L (3.6-5.0); SODIUM 131 MMOL/L (135-145)
[2020-08-11] MEDS: RT-ALBUTEROL INHALER HFA (VENTOLIN HFA) 18 GM IH SCH ×4 (02:40→18:42)
[2020-08-11 02:41] LABS: CALCIUM 6.2 MG/DL (8.5-10.1)
[2020-08-11 02:42] LABS: GLUCOSE 119 MG/DL (70-105); TRIGLYCERIDES 232 MG/DL (<150)
[2020-08-11 02:43] LABS: CARBON DIOXIDE 26 MMOL/L (21-32)
[2020-08-11 02:45] LABS: PHOSPHORUS 2.5 MG/DL (2.3-4.7)
[2020-08-11 02:46] LABS: BUN/CREATININE RATIO 25; CREATININE SERUM 0.36 MG/DL (0.60-1.30)
[2020-08-11 02:48] LABS: MAGNESIUM 1.9 MG/DL (1.6-2.4)
[2020-08-11 03:03] LABS: GFR ESTIMATED > 60
[2020-08-11] MEDS: KCL 20 MEQ TAB (K-DUR) PO SCH (03:07)
[2020-08-11] MEDS: POTASSIUM CL 10MEQ/50ML IVPB 50 ML IV SCH ×3 (03:07→04:10)
[2020-08-11] MEDS: MAGNESIUM 1 GM/100 ML IVPB 100 ML IV SCH (03:07)
[2020-08-11] MEDS: LACTATED RINGERS 1,000 ML IV SCH (04:03)
[2020-08-11] MEDS: fentaNYL DRIP PRE-MIX 250 ML IV SCH ×3 (04:03→22:47)
[2020-08-11] MEDS: inSUlin ASPART (NovoLOG) 1 UNIT/0.01 ML (CHARGE PER UNIT) SC SCH ×3 (04:10→18:56)
[2020-08-11] MEDS: CEFEPIME INJECTION 1,000 MG in WATER (STERILE) FOR INJECTION 10 ML IV SCH ×3 (05:55→17:13)
[2020-08-11] MEDS: ADVAIR HFA 115/21 MCG INHALER 8 GM IH SCH ×2 (06:51→18:42)
--- NOTE | 2020-08-11 07:29 | Physical Therapy Progress Note ---
Therapy Progress Note Pt remains sedated and on mechanical ventilator; will continue to follow. DANIEL BLAS PT Aug 11, 2020 07:29
--- NOTE | 2020-08-11 07:31 | Progress Note - Hospitalist ---
Subjective HPI/CC On Admission Date Seen by Provider: Aug 11, 2020 Time Seen by Provider: 07:28 Pt is a 74yoCF who was direct admitted from [facility] due to COVID19. She states that her beckybadn was diagnosed with COVID on 07/19 and she came back positive the next day as well. She woke up that morning thinking she had pneumonia and had a dry hacking cough. She had a fever of 104.7 this morning prompting her to seek evaluation back at the urgent care. She is on roughly day 7 of symptoms and her sats were 91% at urgent care prompting them to recommend admission. She reports feeling much better now that she is here but continues to have dry cough. Subjective/Events-last exam Pt remains intubated and sedated. This is a drastic change since my last visit with her. I reviewed the chart in the interim. She has since developed worsening respiratory failure requiring mechanical ventilation and developed a subsequent pneumothorax and is s/p chest tube placement. She is intubated and sedad and ROS possible Objective Exam Vital Signs Vital Signs Date Time Temp Pulse Resp B/P (MAP) Pulse Ox O2 Delivery O2 Flow Rate FiO2 08/11/20 18:00 37.5 85 24 102/48 (66) 95 Mechanical Ventilator 60.00 08/11/20 15:47 60 Capillary Refill : Less Than 3 SecondsLess Than 3 Seconds General Appearance: Other (intubated, sedated, ill appearing) Respiratory: Rhonci, Other (chest tube in place, on vent) Cardiovascular: Regular Rate, Rhythm, No Murmur Gastrointestinal: Normal Bowel Sounds, Non Tender, Soft Genital/Rectal: Other (jara in place) Extremity: Other (no pedal edema, pressure boots in place) Neurologic/Psychiatric: Other (sedated, appears comfortable) Results/Procedures Lab Laboratory Tests 08/11/20 02:20 Patient resulted labs reviewed. Imaging: Reviewed Imaging Report Assessment/Plan Assessment and Plan Assess & Plan/Chief Complaint Acute Respiratory Failure COVID-19 with severe ARDS left PTX -continue ventilator care and chest tube, management per TeleICU -Intubated 08/07 -s/p Decadron s/p remdesivir and convalescent plasma -Proning D/C'd secondary to chest tube. -IVF to 30cc/hr - Advair BID, Albuterol Q6 Possible bacterial pneumonia - procalcitonin negative but remains intermittently febrile - Cefepime Hypotension Currenlty on Levophed Hypokalemia Hypomagnesemia -Replace per protocol Thrombocytopenia--resolved HIT Abx is negative, off angiomax Hyponatremia, mild ?SIADH from pna Continue IVF Debility PT/OT as able DVT/GI - ppx: Lovenox, Protonix Overall poor prognosis. I have talked to the family about her critically ill but have not had a change to update them on [place] yet. She has remained relatively stable over the last 24 hours but high risk for decompensation still. Update at 1000: I spoke withson and daughter in law and updated them to above. They expressed understanding of severity of illness but remain hopeful she may pull through. Will remain full code at this time. I did discuss that in the future she may require transition to LTACH. Critical Care Critically Ill Patient Diagnosis/Problems Diagnosis/Problems (1) Acute respiratory failure Status: Acute Qualifiers: Respiratory failure complication: hypoxia Qualified Codes: J96.01 - Acute respiratory failure with hypoxia (2) Coronavirus infection Status: Acute (3) Acute respiratory failure due to COVID-19 Status: Acute (4) Thrombocytopenia Status: Resolved Resolution Date/Time: 08/11/20 @ 07:39 (5) Hypotension Status: Acute (6) Debility Status: Acute Clinical Quality Measures DVT/VTE Risk/Contraindication: Risk Factor Score Per Nursin RFS Level Per Nursing on Admit: 4+=Very High LITO THAPA MD Aug 11, 2020 07:31
[2020-08-11] MEDS: ACETAMINOPHEN 325 MG TABLET PO PRN (08:00)
[2020-08-11] MEDS: ENOXAPARIN 40 MG/0.4 ML (LOVENOX) SYR SC SCH ×2 (08:00→20:04)
[2020-08-11] MEDS: PANTOPRAZOLE 40 MG (PROTONIX) VIAL IV SCH (08:00)
[2020-08-11] MEDS: NOREPINEPHRINE 4 MG/250 ML 250 ML IV SCH ×2 (08:01→18:33)
[2020-08-11] MEDS: VITAMIN D3 125 MCG (5,000 UNITS) CAPSULE PO SCH (08:01)
[2020-08-11] MEDS: ANIDULAFUNGIN INJECTION 100 MG in NS (IVPB) 100 ML IV SCH (08:51)
[2020-08-11] MEDS: PROPOFOL DRIP (ICU) 100 ML IV SCH ×2 (12:02→22:09)
--- NOTE | 2020-08-11 18:14 | NUR ---
1030 PT'S SON AND DIL IN ROOM TO SEE PATIENT, PER B[employer]DER[employer]ER APPROVAL, FAMILY TOOK PT'S [place] RING AND SOME OTHER PERSONAL ITEMS. 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
[2020-08-11] MEDS: RT-ALBUTEROL INHALER HFA (VENTOLIN HFA) 18 GM IH PRN (18:42)
[2020-08-11] MEDS: SERTRALINE 50 MG (ZOLOFT) TABLET PO SCH (20:04)
[2020-08-12] VITALS (29 sets, daily range): BP systolic 92–156; BP diastolic 43–68
[2020-08-12] MEDS: CEFEPIME INJECTION 1,000 MG in WATER (STERILE) FOR INJECTION 10 ML IV SCH ×4 (00:30→17:37)
[2020-08-12] MEDS: inSUlin ASPART (NovoLOG) 1 UNIT/0.01 ML (CHARGE PER UNIT) SC SCH ×4 (00:30→17:43)
[2020-08-12] MEDS: MIDAZOLAM DRIP PRE-MIX 100 ML IV SCH (00:36)
[2020-08-12] MEDS: guaiFENesin SYRUP 100 MG/5 ML 10 ML (ROBITUSSIN SF) PO SCH ×3 (02:09→08:26)
[2020-08-12] MEDS: ACETAMINOPHEN 325 MG TABLET PO PRN ×2 (02:10→15:12)
[2020-08-12] MEDS: RT-ALBUTEROL INHALER HFA (VENTOLIN HFA) 18 GM IH PRN (02:28)
[2020-08-12 02:44] LABS: ABG BASE EXCESS 5.9 MMOL/L (-2.5-2.5); ABG OXYGEN SATURATION 93 % (94-100); ABG PCO2 50 MMHG (35-45); ABG PH 7.41 (7.37-7.43); ABG PO2 77 MMHG (79-93); ABG TCO2 31.6 MMOL/L (21.0-31.0); BASOPHILS % (AUTO) 0 % (0-10); EOSINOPHILS # (AUTO) 0.3 10^3/uL (0.0-0.3); EOSINOPHILS % (AUTO) 3 % (0-10); HEMATOCRIT 26 % (35-52); HEMOGLOBIN 8.3 g/dL (11.5-16.0); LYMPHOCYTES # (AUTO) 0.9 10^3/uL (1.0-4.0); LYMPHOCYTES % (AUTO) 10 % (12-44); MEAN CORPUSCULAR HEMOGLOBIN 28 pg (25-34); MEAN CORPUSCULAR HGB CONC 32 g/dL (32-36); MEAN CORPUSCULAR VOLUME 87 fL (80-99); MEAN PLATELET VOLUME 9.6 fL (9.0-12.2); MONOCYTES # (AUTO) 0.5 10^3/uL (0.0-1.0); MONOCYTES % (AUTO) 6 % (0-12); NEUTROPHILS % (AUTO) 69 % (42-75); PLATELET COUNT 286 10^3/uL (130-400); WHITE BLOOD COUNT 8.7 10^3/uL (4.3-11.0)
[2020-08-12 02:46] LABS: ALLENS TEST ARTLINE; INSPIRED O2 50; PATIENT TEMP 38.4; VENTILATOR YES
[2020-08-12 02:58] LABS: CHLORIDE 96 MMOL/L (98-107); POTASSIUM 3.7 MMOL/L (3.6-5.0); SODIUM 133 MMOL/L (135-145)
[2020-08-12 02:59] LABS: CALCIUM 6.8 MG/DL (8.5-10.1)
[2020-08-12 03:00] LABS: GLUCOSE 129 MG/DL (70-105)
[2020-08-12 03:01] LABS: CARBON DIOXIDE 28 MMOL/L (21-32)
[2020-08-12 03:03] LABS: PHOSPHORUS 2.2 MG/DL (2.3-4.7)
[2020-08-12 03:04] LABS: CREATININE SERUM 0.38 MG/DL (0.60-1.30)
[2020-08-12 03:05] LABS: BUN/CREATININE RATIO 26
[2020-08-12 03:06] LABS: MAGNESIUM 1.9 MG/DL (1.6-2.4)
[2020-08-12 03:08] LABS: GFR ESTIMATED > 60
[2020-08-12] MEDS: MAGNESIUM 1 GM/100 ML IVPB 100 ML IV SCH (04:07)
[2020-08-12] MEDS: POTASSIUM CL 10MEQ/50ML IVPB 50 ML IV SCH (04:07)
[2020-08-12] MEDS: KCL 20 MEQ TAB (K-DUR) PO SCH (04:07)
[2020-08-12] MEDS: NOREPINEPHRINE 4 MG/250 ML 250 ML IV SCH ×2 (07:02→17:04)
[2020-08-12] MEDS ORDERED: ZINC OXIDE 16% OINT (BUTT PASTE) 57 GM TUBE TOP PRN (07:30)
[2020-08-12] MEDS: ADVAIR HFA 115/21 MCG INHALER 8 GM IH SCH ×2 (07:51→21:20)
[2020-08-12] MEDS: RT-ALBUTEROL INHALER HFA (VENTOLIN HFA) 18 GM IH SCH ×3 (07:51→21:20)
[2020-08-12] MEDS: ENOXAPARIN 40 MG/0.4 ML (LOVENOX) SYR SC SCH ×2 (08:26→20:31)
[2020-08-12] MEDS: PANTOPRAZOLE 40 MG (PROTONIX) VIAL IV SCH (08:26)
[2020-08-12] MEDS: VITAMIN D3 125 MCG (5,000 UNITS) CAPSULE PO SCH (08:27)
[2020-08-12] MEDS: ANIDULAFUNGIN INJECTION 100 MG in NS (IVPB) 100 ML IV SCH (09:09)
--- NOTE | 2020-08-12 09:57 | Progress Note - Hospitalist ---
Subjective HPI/CC On Admission Date Seen by Provider: Aug 12, 2020 Time Seen by Provider: 09:52 Pt is a 74yoCF who was direct admitted from [facility] Urgent care due to COVID19. She states that her beckybadn was diagnosed with COVID on 07/19 and she came back positive the next day as well. She woke up that morning thinking she had pneumonia and had a dry hacking cough. She had a fever of 104.7 this morning prompting her to seek evaluation back at the urgent care. She is on roughly day 7 of symptoms and her sats were 91% at urgent care prompting them to recommend admission. She reports feeling much better now that she is here but continues to have dry cough. Subjective/Events-last exam Pt remains sedated on vent. No concerns per RN at this time. Objective Exam Vital Signs Vital Signs Date Time Temp Pulse Resp B/P (MAP) Pulse Ox O2 Delivery O2 Flow Rate FiO2 08/12/20 09:00 82 24 104/47 (66) 93 Mechanical Ventilator 55.00 08/12/20 07:51 50 08/12/20 05:00 37.6 Capillary Refill : Less Than 3 SecondsLess Than 3 Seconds General Appearance: Chronically ill, Other (sedated on vent) Respiratory: Decreased Breath Sounds; No Rhonci, No Wheezing; Other (on vent) Cardiovascular: Regular Rate, Rhythm, No Murmur Gastrointestinal: Normal Bowel Sounds, Non Tender, Soft Genital/Rectal: Other (jara in place) Neurologic/Psychiatric: Other (sedated, appears comfortable) Results/Procedures Lab Laboratory Tests 08/12/20 02:22 Patient resulted labs reviewed. Imaging: Reviewed Imaging Report Assessment/Plan Assessment and Plan Assess & Plan/Chief Complaint Acute Respiratory Failure COVID-19 with severe ARDS left PTX - continue ventilator care and chest tube, management per TeleICU -Intubated 08/07 - Continue to wean vent settings as able - s/p Decadron - s/p remdesivir and convalescent plasma - IVF to 30cc/hr - Advair BID, Albuterol Q6 Possible bacterial pneumonia - procalcitonin negative but remains intermittently febrile - Cefepime Hypotension Currenlty on Levophed, wean as tolerates Hypokalemia Hypomagnesemia -Replace per protocol Thrombocytopenia--resolved HIT Abx is negative, off angiomax Hyponatremia, mild ?SIADH from pna Continue IVF Debility PT/OT as able DVT/GI - ppx: Lovenox, Protonix Discussed with son again today. His concern today was about when she wakes up being informed about her passing. Assured him we would work with their family to inform her of the news and support her but that that conversation is still in the distance. Critical Care Critically Ill Patient Diagnosis/Problems Diagnosis/Problems (1) Acute respiratory failure Status: Acute Qualifiers: Respiratory failure complication: hypoxia Qualified Codes: J96.01 - Acute respiratory failure with hypoxia (2) Coronavirus infection Status: Acute (3) Acute respiratory failure due to COVID-19 Status: Acute (4) Thrombocytopenia Status: Resolved Resolution Date/Time: 08/11/20 @ 07:39 (5) Hypotension Status: Acute (6) Debility Status: Acute Clinical Quality Measures DVT/VTE Risk/Contraindication: Risk Factor Score Per Nursin RFS Level Per Nursing on Admit: 4+=Very High LITO THAPA MD Aug 12, 2020 09:57
[2020-08-12] MEDS: PROPOFOL DRIP (ICU) 100 ML IV SCH (11:06)
[2020-08-12] MEDS: fentaNYL DRIP PRE-MIX 250 ML IV SCH (13:34)
--- NOTE | 2020-08-12 13:55 | Diagnostic Imaging Report ---
CHEST 1 VIEW, AP/PA ONLY Indication: COVID positive, intubation Comparison: 08/10/2020 Findings: Bilateral mid and lower lung heterogeneous opacities are unchanged. Stable left chest tube. Left apical pneumothorax has resolved. Stable ET and enteric tubes. Stable left PICC. 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 Impression: 1. Left apical pneumothorax has resolved with stable position of the left chest tube. 2. Other support devices are also stable. 3. No change in coarse bilateral pulmonary opacities likely due to sequelae of severe infection. Dictated by: Dictated on workstation # [id number]
--- NOTE | 2020-08-12 14:17 | NUR ---
0830 TUBE FEEDING RESIDUAL NOTED TO BE GREATER THAN > 100. TUBE FEEDINGS HELD AT THIS TIME, WILL CONTINUE TO MONITOR.
[2020-08-12] MEDS: LACTATED RINGERS 1,000 ML IV SCH (15:12)
[2020-08-12] MEDS: SERTRALINE 50 MG (ZOLOFT) TABLET PO SCH (20:31)
[2020-08-13] VITALS (29 sets, daily range): BP systolic 87–135; BP diastolic 33–68
[2020-08-13] MEDS: PROPOFOL DRIP (ICU) 100 ML IV SCH (00:08)
[2020-08-13] MEDS: inSUlin ASPART (NovoLOG) 1 UNIT/0.01 ML (CHARGE PER UNIT) SC SCH ×5 (00:08→23:51)
[2020-08-13] MEDS: CEFEPIME INJECTION 1,000 MG in WATER (STERILE) FOR INJECTION 10 ML IV SCH ×3 (00:37→14:44)
[2020-08-13] MEDS: MIDAZOLAM DRIP PRE-MIX 100 ML IV SCH (01:15)
[2020-08-13] MEDS: RT-ALBUTEROL INHALER HFA (VENTOLIN HFA) 18 GM IH SCH ×4 (01:47→21:27)
[2020-08-13 02:43] LABS: ABG BASE EXCESS 7.2 MMOL/L (-2.5-2.5); ABG OXYGEN SATURATION 94 % (94-100); ABG PCO2 45 MMHG (35-45); ABG PH 7.46 (7.37-7.43); ABG PO2 69 MMHG (79-93); ABG TCO2 32.6 MMOL/L (21.0-31.0)
[2020-08-13 02:45] LABS: ALLENS TEST ARTLINE; INSPIRED O2 45; PATIENT TEMP 37.1; VENTILATOR YES
[2020-08-13 02:53] LABS: BASOPHILS % (AUTO) 0 % (0-10); EOSINOPHILS # (AUTO) 0.3 10^3/uL (0.0-0.3); EOSINOPHILS % (AUTO) 4 % (0-10); HEMATOCRIT 25 % (35-52); HEMOGLOBIN 7.9 g/dL (11.5-16.0); LYMPHOCYTES # (AUTO) 1.1 10^3/uL (1.0-4.0); LYMPHOCYTES % (AUTO) 14 % (12-44); MEAN CORPUSCULAR HEMOGLOBIN 27 pg (25-34); MEAN CORPUSCULAR HGB CONC 32 g/dL (32-36); MEAN CORPUSCULAR VOLUME 85 fL (80-99); MEAN PLATELET VOLUME 9.6 fL (9.0-12.2); MONOCYTES # (AUTO) 0.6 10^3/uL (0.0-1.0); MONOCYTES % (AUTO) 8 % (0-12); NEUTROPHILS # (AUTO) 4.8 10^3/uL (1.8-7.8); NEUTROPHILS % (AUTO) 65 % (42-75); PLATELET COUNT 261 10^3/uL (130-400); WHITE BLOOD COUNT 7.5 10^3/uL (4.3-11.0)
[2020-08-13 02:54] LABS: CHLORIDE 98 MMOL/L (98-107); POTASSIUM 3.2 MMOL/L (3.6-5.0); SODIUM 135 MMOL/L (135-145)
[2020-08-13 02:55] LABS: CALCIUM 6.8 MG/DL (8.5-10.1)
[2020-08-13 02:56] LABS: GLUCOSE 105 MG/DL (70-105)
[2020-08-13 02:57] LABS: CARBON DIOXIDE 28 MMOL/L (21-32)
[2020-08-13 03:00] LABS: BUN/CREATININE RATIO 33; CREATININE SERUM 0.33 MG/DL (0.60-1.30)
[2020-08-13 03:02] LABS: MAGNESIUM 1.9 MG/DL (1.6-2.4)
[2020-08-13 03:11] LABS: GFR ESTIMATED > 60
[2020-08-13] MEDS: KCL 20 MEQ TAB (K-DUR) PO SCH (04:33)
[2020-08-13] MEDS: POTASSIUM CL 10MEQ/50ML IVPB 50 ML IV SCH ×4 (04:34→07:51)
[2020-08-13] MEDS: MAGNESIUM 1 GM/100 ML IVPB 100 ML IV SCH (04:34)
--- NOTE | 2020-08-13 05:13 | Pulmonary Progress Note ---
Subjective Time Seen by a Provider: 05:07 Subjective/Events-last exam Pt is sedated on vent. Sepsis Event Evaluation Height, Weight, BMI Height: '" Weight: lbs. oz. kg; 26.88 BMI Method: Exam Exam Vital Signs Date Time Temp Pulse Resp B/P (MAP) Pulse Ox O2 Delivery O2 Flow Rate FiO2 08/13/20 02:32 92 Mechanical Ventilator 45.00 08/13/20 01:47 83 24 94 50 08/13/20 01:30 88 Mechanical Ventilator 45.00 08/12/20 23:00 36.9 80 24 96/47 (63) 90 Mechanical Ventilator 40.00 08/12/20 22:00 37.0 79 24 94/47 (63) 90 Mechanical Ventilator 40.00 08/12/20 21:21 88 24 92 40 08/12/20 21:00 31.8 81 20 156/60 (92) 88 Mechanical Ventilator 40.00 08/12/20 20:30 36.9 73 23 114/48 (70) 92 Mechanical Ventilator 40.00 08/12/20 20:00 92 Mechanical Ventilator 40 08/12/20 19:32 78 24 95 50 08/12/20 19:00 37.2 80 23 99/44 (62) 94 Mechanical Ventilator 50.00 08/12/20 19:00 80 08/12/20 18:00 37.4 92 23 96/43 (60) 92 Mechanical Ventilator 50.00 08/12/20 17:04 92 130/56 08/12/20 17:00 37.8 94 24 136/57 (83) 94 Mechanical Ventilator 50.00 08/12/20 16:23 92 24 94 50 08/12/20 16:00 38.1 08/12/20 16:00 38.2 112 25 133/56 (81) 92 Mechanical Ventilator 55.00 08/12/20 15:12 38.5 08/12/20 15:00 38.5 112 25 123/47 (72) 90 Mechanical Ventilator 55.00 08/12/20 14:00 38.4 109 23 138/50 (79) 90 Mechanical Ventilator 55.00 08/12/20 13:00 37.9 107 23 147/57 (87) 90 Mechanical Ventilator 55.00 08/12/20 12:37 92 08/12/20 12:00 37.7 111 25 138/53 (81) 91 Mechanical Ventilator 55.00 08/12/20 11:03 88 25 94 50 08/12/20 11:00 37.6 90 21 126/53 (77) 94 Mechanical Ventilator 55.00 08/12/20 10:00 37.5 100 23 107/46 (66) 91 Mechanical Ventilator 55.00 08/12/20 09:00 37.5 82 24 104/47 (66) 93 Mechanical Ventilator 55.00 08/12/20 08:00 Mechanical Ventilator 60 08/12/20 08:00 37.5 85 24 133/53 (79) 93 Mechanical Ventilator 55.00 08/12/20 07:51 81 24 93 50 08/12/20 07:00 85 08/12/20 07:00 37.5 90 23 116/46 (69) 92 Mechanical Ventilator 55.00 I & O 08/13/20 07:00 Intake Total 10 ml Output Total 1200 ml Balance -1190 ml Height & Weight Height: '" Weight: lbs. oz. kg; 26.88 BMI Method: General Appearance: Chronically ill, Other (sedated on vent) HEENT: PERRL/EOMI, Moist Mucous Membranes; No Scleral Icterus (L), No Scleral Icterus (R) Neck: Normal Inspection, Supple Respiratory: Decreased Breath Sounds; No Rhonci, No Wheezing; Other (on vent) Cardiovascular: Regular Rate, Rhythm, No Murmur Capillary Refill: Less Than 3 Seconds Extremity: Other (no pedal edema, pressure boots in place) Neurologic/Psychiatric: Other (sedated, appears comfortable) Skin: Normal Color, Warm/Dry Results Lab Laboratory Tests 08/12/20 02:22 08/13/20 02:30 Assessment/Plan Assessment/Plan Acute respiratory failure due to COVID-19 with severe ARDS -Start TF -continue ventilator care -Intubated 08/07 -DDImer, PCT and BNP -s/p Decadron s/p remdesivir and convalescent plasma -Proning D/C'd secondary to chest tube. -Decrease IVF to 30cc/hr left PTX -Chest tube placement 08/08 -No chest tube out put currently -Continue suction to Chest tube Possible bacterial pneumonia - Cefepime Hypotension Currenlty on Levophed Hypokalemia -Replace Thrombocytopenia-- improving - HIT Abx is negative D/C Angiomax -Repeat DDimer Nausea and vomiting Antiemetics as needed Hyponatremia Hypokalemia Monitor and replace as needed Debility PT/OT DVT/GI - ppx: Lovenox, Protonix TITO STEVE DO Aug 13, 2020 05:13
[2020-08-13] MEDS ORDERED: POTASSIUM PHOSPHATE INJ 30 MM in NS (IVPB) 250 ML IV ONE (05:15)
[2020-08-13] MEDS: fentaNYL DRIP PRE-MIX 250 ML IV SCH ×2 (05:47→21:51)
[2020-08-13] MEDS ORDERED: ARTIFICIAL TEARS OINT (LACRI-LUBE) 3.5 GM TUBE OU PRN (06:00)
[2020-08-13] MEDS: ADVAIR HFA 115/21 MCG INHALER 8 GM IH SCH ×2 (07:00→21:27)
--- NOTE | 2020-08-13 07:32 | Diagnostic Imaging Report ---
INDICATION: Followup pneumonia. Ventilated patient. COMPARISON: 08/12/2020 FINDINGS: Single frontal radiographic view of the chest was obtained and demonstrated indwelling endotracheal tube with tip below the clavicular heads and above the jeffrey. Gastric tube extends inferiorly beyond the [id number]. Left upper extremity PICC line is also present with tip in the low SVC. Lungs continue to show scattered patchy interstitial infiltrates greatest within the bilateral mid and lower lung cornelius. Overall, aeration is not significantly changed. There is no large effusion or pneumothorax. Cardiac silhouette and pulmonary vasculature are stable as well. IMPRESSION: 1. Stable bilateral infiltrates. 2. Lines and tubes as above. Dictated by: Dictated on workstation # [id number]
[2020-08-13] MEDS: ENOXAPARIN 40 MG/0.4 ML (LOVENOX) SYR SC SCH ×2 (08:39→20:12)
[2020-08-13] MEDS: VITAMIN D3 125 MCG (5,000 UNITS) CAPSULE PO SCH (08:40)
[2020-08-13] MEDS: PANTOPRAZOLE 40 MG (PROTONIX) VIAL IV SCH (08:40)
[2020-08-13] MEDS: ARTIFICIAL TEARS OINT (LACRI-LUBE) 3.5 GM TUBE OU SCH ×2 (09:00→21:00)
[2020-08-13] MEDS: ANIDULAFUNGIN INJECTION 100 MG in NS (IVPB) 100 ML IV SCH (09:01)
--- NOTE | 2020-08-13 12:02 | Physical Therapy Progress Note ---
Therapy Progress Note PROM B U/LE available planes. Assisted with cleaning periarea and changing linens due to bowel incontinence. DANIEL BLAS PT Aug 13, 2020 12:01
[2020-08-13] MEDS: LACTATED RINGERS 1,000 ML IV SCH (18:53)
[2020-08-13] MEDS: SERTRALINE 50 MG (ZOLOFT) TABLET PO SCH (20:12)
[2020-08-14] VITALS (31 sets, daily range): BP systolic 86–150; BP diastolic 36–68
[2020-08-14] MEDS: RT-ALBUTEROL INHALER HFA (VENTOLIN HFA) 18 GM IH SCH ×4 (01:40→18:34)
[2020-08-14 02:52] LABS: ABG BASE EXCESS 6.1 MMOL/L (-2.5-2.5); ABG OXYGEN SATURATION 97 % (94-100); ABG PCO2 43 MMHG (35-45); ABG PH 7.46 (7.37-7.43); ABG PO2 83 MMHG (79-93); ABG TCO2 31.2 MMOL/L (21.0-31.0)
[2020-08-14 02:55] LABS: ALLENS TEST ART LINE; INSPIRED O2 60%; PATIENT TEMP 37.7; VENTILATOR YES
[2020-08-14 02:59] LABS: BASOPHILS % (AUTO) 0 % (0-10); EOSINOPHILS # (AUTO) 0.1 10^3/uL (0.0-0.3); EOSINOPHILS % (AUTO) 3 % (0-10); HEMATOCRIT 35 % (35-52); LYMPHOCYTES # (AUTO) 0.6 10^3/uL (1.0-4.0); LYMPHOCYTES % (AUTO) 12 % (12-44); MEAN CORPUSCULAR HEMOGLOBIN 27 pg (25-34); MEAN CORPUSCULAR HGB CONC 31 g/dL (32-36); MEAN CORPUSCULAR VOLUME 86 fL (80-99); MEAN PLATELET VOLUME 9.5 fL (9.0-12.2); MONOCYTES # (AUTO) 0.4 10^3/uL (0.0-1.0); MONOCYTES % (AUTO) 8 % (0-12); NEUTROPHILS # (AUTO) 3.2 10^3/uL (1.8-7.8); NEUTROPHILS % (AUTO) 66 % (42-75); PLATELET COUNT 198 10^3/uL (130-400); WHITE BLOOD COUNT 4.9 10^3/uL (4.3-11.0)
[2020-08-14 03:15] LABS: CHLORIDE 94 MMOL/L (98-107); POTASSIUM 4.5 MMOL/L (3.6-5.0); SODIUM 136 MMOL/L (135-145)
[2020-08-14 03:17] LABS: GLUCOSE 87 MG/DL (70-105)
[2020-08-14 03:18] LABS: CARBON DIOXIDE 24 MMOL/L (21-32)
[2020-08-14 03:20] LABS: PHOSPHORUS 2.8 MG/DL (2.3-4.7)
[2020-08-14 03:21] LABS: CREATININE SERUM 0.33 MG/DL (0.60-1.30); GFR ESTIMATED > 60
[2020-08-14 03:22] LABS: BUN/CREATININE RATIO 33
[2020-08-14] MEDS ORDERED: NS IV 1000 ML 1,000 ML ONE (03:50)
[2020-08-14] MEDS ORDERED: NS IV 1000 ML 1,000 ML IV SCH (04:00)
[2020-08-14] MEDS: MIDAZOLAM DRIP PRE-MIX 100 ML IV SCH (04:01)
--- NOTE | 2020-08-14 04:36 | Pulmonary Progress Note ---
Subjective Time Seen by a Provider: 04:34 Subjective/Events-last exam Pt is sedated on vent. Sepsis Event Evaluation Height, Weight, BMI Height: '" Weight: lbs. oz. kg; 26.88 BMI Method: Exam Exam Vital Signs Date Time Temp Pulse Resp B/P (MAP) Pulse Ox O2 Delivery O2 Flow Rate FiO2 08/14/20 04:01 84/40 08/14/20 01:40 100 24 93 60 08/13/20 21:27 96 24 94 60 08/13/20 20:51 90 Mechanical Ventilator 60 08/13/20 20:13 37.6 96 24 133/52 (79) 90 Mechanical Ventilator 60.00 08/13/20 19:02 92 24 91 60 08/13/20 19:00 90 08/13/20 18:00 37.3 96 24 87/33 (51) 92 Mechanical Ventilator 50.00 08/13/20 17:00 36.9 104 24 135/49 (77) 90 Mechanical Ventilator 50.00 08/13/20 16:00 37.4 95 25 116/48 (70) 89 Mechanical Ventilator 50.00 08/13/20 15:23 95 24 90 50 08/13/20 15:00 37.4 98 23 99/44 (62) 89 Mechanical Ventilator 50.00 08/13/20 14:00 37.2 99 24 104/44 (64) 91 Mechanical Ventilator 50.00 08/13/20 13:00 37.2 97 23 87/43 (58) 93 Mechanical Ventilator 50.00 08/13/20 12:49 99 08/13/20 12:00 37.5 111 23 102/45 (64) 92 Mechanical Ventilator 50.00 08/13/20 11:00 37.6 105 23 115/49 (71) 91 Mechanical Ventilator 50.00 08/13/20 10:47 105 25 90 50 08/13/20 10:00 37.6 112 23 121/51 (74) 90 Mechanical Ventilator 50.00 08/13/20 09:00 37.6 117 51 117/51 (73) 87 Mechanical Ventilator 50.00 08/13/20 08:00 89 Mechanical Ventilator 50 08/13/20 08:00 37.1 107 23 106/43 (64) 91 Mechanical Ventilator 50.00 08/13/20 07:00 37.2 105 24 104/41 (62) 91 Mechanical Ventilator 50.00 08/13/20 07:00 105 24 90 50 08/13/20 06:50 105 08/13/20 06:41 Mechanical Ventilator 50.00 08/13/20 06:00 37.8 93 24 128/46 (73) 92 Mechanical Ventilator 45.00 08/13/20 05:00 37.7 92 23 117/45 (69) 92 Mechanical Ventilator 45.00 I & O 08/14/20 07:00 Intake Total 630 ml Output Total 893 ml Balance -263 ml Height & Weight Height: '" Weight: lbs. oz. kg; 26.88 BMI Method: General Appearance: Chronically ill, Other (sedated on vent) HEENT: PERRL/EOMI, Moist Mucous Membranes; No Scleral Icterus (L), No Scleral Icterus (R) Neck: Normal Inspection, Supple Respiratory: Decreased Breath Sounds; No Rhonci, No Wheezing; Other (on vent) Cardiovascular: Regular Rate, Rhythm, No Murmur Capillary Refill: Less Than 3 Seconds Extremity: Other (no pedal edema, pressure boots in place) Neurologic/Psychiatric: Other (sedated, appears comfortable) Skin: Normal Color, Warm/Dry Results Lab Laboratory Tests 08/13/20 02:30 08/14/20 02:35 Assessment/Plan Assessment/Plan Acute respiratory failure due to COVID-19 with severe ARDS -Start TF -continue ventilator care . Increase PEEP to 12 -Intubated 08/07 -DDImer, PCT and BNP -s/p Decadron s/p remdesivir and convalescent plasma -Proning D/C'd secondary to chest tube. -Decrease IVF to 30cc/hr left PTX -Chest tube placement 08/08 -No chest tube out put currently -Continue suction to Chest tube Possible bacterial pneumonia - s/p Cefepime -Eraxis Hypotension Currenlty on Levophed Hypokalemia -Replace Thrombocytopenia-- improving - HIT Abx is negative D/C Angiomax -Repeat DDimer Nausea and vomiting Antiemetics as needed Hyponatremia Hypokalemia Monitor and replace as needed Debility PT/OT DVT/GI - ppx: Lovenox, Protonix TITO STEVE DO Aug 14, 2020 04:36
[2020-08-14] MEDS: MAGNESIUM 1 GM/100 ML IVPB 100 ML IV SCH (04:46)
[2020-08-14] MEDS: POTASSIUM CL 10MEQ/50ML IVPB 50 ML IV SCH (04:46)
[2020-08-14] MEDS: KCL 20 MEQ TAB (K-DUR) PO SCH (04:47)
[2020-08-14] MEDS: inSUlin ASPART (NovoLOG) 1 UNIT/0.01 ML (CHARGE PER UNIT) SC SCH ×4 (04:48→23:38)
[2020-08-14] MEDS: ADVAIR HFA 115/21 MCG INHALER 8 GM IH SCH ×2 (06:20→18:34)
--- NOTE | 2020-08-14 07:28 | Diagnostic Imaging Report ---
EXAMINATION: Chest 1 view HISTORY: COVID positive. Intubated. Follow-up. COMPARISON: 08/13/2020. FINDINGS: Stable configuration of the endotracheal tube, enteric tube, and left PICC. Unchanged patchy opacities are seen throughout the mid and lower lungs bilaterally. No pleural effusion or pneumothorax. Stable cardiac silhouette. IMPRESSION: 1. Stable chest with stable support devices and stable patchy opacities in the mid and lower lungs bilaterally. Report was faxed to [facility] by mike at 7:28am. Dictated by: Dictated on workstation # [id number]
[2020-08-14] MEDS: ENOXAPARIN 40 MG/0.4 ML (LOVENOX) SYR SC SCH ×2 (08:48→20:39)
[2020-08-14] MEDS: ARTIFICIAL TEARS OINT (LACRI-LUBE) 3.5 GM TUBE OU SCH ×2 (08:48→20:40)
[2020-08-14] MEDS: PANTOPRAZOLE 40 MG (PROTONIX) VIAL IV SCH (08:48)
[2020-08-14] MEDS: ANIDULAFUNGIN INJECTION 100 MG in NS (IVPB) 100 ML IV SCH (08:49)
[2020-08-14] MEDS: VITAMIN D3 125 MCG (5,000 UNITS) CAPSULE PO SCH (08:49)
[2020-08-14] MEDS: LACTATED RINGERS 1,000 ML IV SCH (12:38)
[2020-08-14] MEDS: fentaNYL DRIP PRE-MIX 250 ML IV SCH (12:38)
[2020-08-14] MEDS: ACETAMINOPHEN 325 MG TABLET PO PRN (13:01)
--- NOTE | 2020-08-14 15:41 | NUR ---
Note pt is receiving TF via bolus feeds of Pulmocare 60ml q4h, with flushes of 60ml water before and after. Discussed with Goldie MARK about increasing bolus feeds to 90ml q4h. Would recommend monitor tolerance of higher rate of TF. Will continue to follow and reassess as pt needs, intake, and status change. Selma FELTON, MS RD LD [phone] CELL
[2020-08-14] MEDS: SERTRALINE 50 MG (ZOLOFT) TABLET PO SCH (20:40)
[2020-08-15] VITALS (30 sets, daily range): BP systolic 78–168; BP diastolic 39–70
[2020-08-15] MEDS: fentaNYL DRIP PRE-MIX 250 ML IV SCH ×3 (01:46→20:35)
[2020-08-15] MEDS: RT-ALBUTEROL INHALER HFA (VENTOLIN HFA) 18 GM IH SCH ×4 (02:02→19:07)
[2020-08-15 02:33] LABS: ABG BASE EXCESS 3.9 MMOL/L (-2.5-2.5); ABG OXYGEN SATURATION 92 % (94-100); ABG PCO2 39 MMHG (35-45); ABG PH 7.46 (7.37-7.43); ABG PO2 58 MMHG (79-93); ABG TCO2 28.9 MMOL/L (21.0-31.0)
[2020-08-15 02:40] LABS: ALLENS TEST ART LINE; INSPIRED O2 60%; VENTILATOR YES
[2020-08-15 02:41] LABS: PATIENT TEMP 36.7
[2020-08-15 02:47] LABS: BASOPHILS % (AUTO) 0 % (0-10); EOSINOPHILS # (AUTO) 0.3 10^3/uL (0.0-0.3); EOSINOPHILS % (AUTO) 3 % (0-10); HEMATOCRIT 24 % (35-52); HEMOGLOBIN 7.3 g/dL (11.5-16.0); LYMPHOCYTES # (AUTO) 0.9 10^3/uL (1.0-4.0); LYMPHOCYTES % (AUTO) 10 % (12-44); MEAN CORPUSCULAR HEMOGLOBIN 27 pg (25-34); MEAN CORPUSCULAR HGB CONC 31 g/dL (32-36); MEAN CORPUSCULAR VOLUME 87 fL (80-99); MEAN PLATELET VOLUME 9.3 fL (9.0-12.2); MONOCYTES # (AUTO) 0.6 10^3/uL (0.0-1.0); MONOCYTES % (AUTO) 7 % (0-12); NEUTROPHILS # (AUTO) 5.8 10^3/uL (1.8-7.8); NEUTROPHILS % (AUTO) 69 % (42-75); PLATELET COUNT 307 10^3/uL (130-400); WHITE BLOOD COUNT 8.4 10^3/uL (4.3-11.0)
[2020-08-15 02:51] LABS: CHLORIDE 99 MMOL/L (98-107); POTASSIUM 3.3 MMOL/L (3.6-5.0); SODIUM 132 MMOL/L (135-145)
[2020-08-15 02:52] LABS: CALCIUM 7.1 MG/DL (8.5-10.1)
[2020-08-15 02:53] LABS: GLUCOSE 79 MG/DL (70-105)
[2020-08-15 02:54] LABS: CARBON DIOXIDE 23 MMOL/L (21-32)
[2020-08-15 02:56] LABS: PHOSPHORUS 3.2 MG/DL (2.3-4.7)
[2020-08-15 02:57] LABS: CREATININE SERUM 0.32 MG/DL (0.60-1.30); GFR ESTIMATED > 60
[2020-08-15 02:58] LABS: BUN/CREATININE RATIO 25
--- NOTE | 2020-08-15 04:42 | Pulmonary Progress Note ---
Subjective Time Seen by a Provider: 04:37 Subjective/Events-last exam sedated on vent. Sepsis Event Evaluation Height, Weight, BMI Height: '" Weight: lbs. oz. kg; 26.88 BMI Method: Exam Exam Vital Signs Date Time Temp Pulse Resp B/P (MAP) Pulse Ox O2 Delivery O2 Flow Rate FiO2 08/15/20 03:00 101 23 111/48 (69) 92 Mechanical Ventilator 60.00 08/15/20 02:02 101 24 92 60 08/15/20 02:00 102 23 133/51 (78) 92 Mechanical Ventilator 60.00 08/15/20 01:00 100 23 126/51 (76) 93 Mechanical Ventilator 60.00 08/15/20 01:00 100 08/15/20 00:00 98 24 106/46 (66) 93 Mechanical Ventilator 60.00 08/14/20 23:00 107 25 104/43 (63) 92 Mechanical Ventilator 60.00 08/14/20 22:00 105 21 141/52 (81) 93 Mechanical Ventilator 60.00 08/14/20 21:08 101 24 93 60 08/14/20 21:00 96 24 150/56 (87) 94 Mechanical Ventilator 60.00 08/14/20 20:40 36.4 08/14/20 20:00 90 Mechanical Ventilator 60 08/14/20 20:00 85 24 120/49 (72) 97 Mechanical Ventilator 60.00 08/14/20 19:00 92 08/14/20 19:00 92 24 122/52 (75) 95 Mechanical Ventilator 60.00 08/14/20 18:34 84 24 93 60 08/14/20 18:00 86 23 103/45 (64) 93 Mechanical Ventilator 60.00 08/14/20 17:00 87 23 118/49 (72) 94 Mechanical Ventilator 60.00 08/14/20 16:00 90 24 118/50 (72) 93 Mechanical Ventilator 60.00 08/14/20 15:00 39.4 94 23 103/44 (63) 94 Mechanical Ventilator 60.00 08/14/20 14:16 101 24 94 60 08/14/20 14:00 39.3 89 24 120/48 (72) 93 Mechanical Ventilator 60.00 08/14/20 13:01 38.6 08/14/20 13:00 38.7 81 24 110/43 (65) 98 Mechanical Ventilator 60.00 08/14/20 12:32 81 08/14/20 12:00 38.4 80 24 98/39 (58) 96 Mechanical Ventilator 60.00 08/14/20 11:08 81 24 96 60 08/14/20 11:00 38.2 81 23 100/39 (59) 96 Mechanical Ventilator 60.00 08/14/20 10:00 38.0 100 39 100/39 (59) 94 Mechanical Ventilator 60.00 08/14/20 09:00 37.7 108 44 108/44 (65) 94 Mechanical Ventilator 60.00 08/14/20 08:30 90 Mechanical Ventilator 60 08/14/20 08:00 37.7 85 25 86/39 (55) 94 Mechanical Ventilator 60.00 08/14/20 07:00 37.6 87 24 95/42 (59) 94 Mechanical Ventilator 60.00 08/14/20 06:38 89 08/14/20 06:20 86 24 93 60 08/14/20 06:00 37.2 87 24 107/43 (64) 94 Mechanical Ventilator 60.00 08/14/20 05:18 84 24 93 60 08/14/20 05:00 37.3 84 94/43 (60) 95 Mechanical Ventilator 60.00 I & O 08/15/20 07:00 Intake Total 2560 ml Output Total 1300 ml Balance 1260 ml Height & Weight Height: '" Weight: lbs. oz. kg; 26.88 BMI Method: General Appearance: Chronically ill, Other (sedated on vent) HEENT: PERRL/EOMI, Moist Mucous Membranes; No Scleral Icterus (L), No Scleral Icterus (R) Neck: Normal Inspection, Supple Respiratory: Decreased Breath Sounds; No Rhonci, No Wheezing; Other (on vent) Cardiovascular: Regular Rate, Rhythm, No Murmur Capillary Refill: Less Than 3 Seconds Extremity: Other (no pedal edema, pressure boots in place) Neurologic/Psychiatric: Other (sedated, appears comfortable) Skin: Normal Color, Warm/Dry Results Lab Laboratory Tests 08/14/20 02:35 08/15/20 02:20 Assessment/Plan Assessment/Plan Acute respiratory failure due to COVID-19 with severe ARDS -Start TF -continue ventilator care . Increase PEEP to 12 -Intubated 08/07 -Repeat Lasix 40mg x 1 -s/p Decadron s/p remdesivir and convalescent plasma -Proning D/C'd secondary to chest tube. -Decrease IVF to 30cc/hr Hypogycemia -Change to D5LR at 30 left PTX -Chest tube placement 08/08 -No chest tube out put currently -Continue suction to Chest tube Possible bacterial pneumonia - s/p Cefepime -Eraxis Hypotension Now off Levophed Hypokalemia -Replace Thrombocytopenia-- improving - HIT Abx is negative D/C Angiomax -Repeat DDimer Nausea and vomiting Antiemetics as needed Hyponatremia Hypokalemia Monitor and replace as needed Debility PT/OT DVT/GI - ppx: Lovenox, Protonix TITO STEVE DO Aug 15, 2020 04:42
[2020-08-15] MEDS ORDERED: FUROSEMIDE 40 MG/4 ML INJ (LASIX) IVP ONE (04:45)
[2020-08-15] MEDS: POTASSIUM CL 10MEQ/50ML IVPB 50 ML IV SCH ×7 (05:17→09:07)
[2020-08-15] MEDS: KCL 20 MEQ TAB (K-DUR) PO SCH (05:17)
[2020-08-15] MEDS: MAGNESIUM 1 GM/100 ML IVPB 100 ML IV SCH (05:17)
[2020-08-15] MEDS: D5 LR IV SOLUTION 1,000 ML IV SCH (05:34)
[2020-08-15] MEDS: inSUlin ASPART (NovoLOG) 1 UNIT/0.01 ML (CHARGE PER UNIT) SC SCH ×3 (06:30→17:44)
[2020-08-15] MEDS: ADVAIR HFA 115/21 MCG INHALER 8 GM IH SCH ×2 (08:21→20:30)
--- NOTE | 2020-08-15 08:24 | Diagnostic Imaging Report ---
INDICATION: Respiratory distress. COVID pneumonia. Comparison with 08/14/2020. FINDINGS: ET tube, NG tube and left PICC line remain in good position. The lungs are well aerated. Bilateral basilar alveolar infiltrates remain present with little overall change in appearance. The heart is not enlarged. No evidence of pulmonary edema. IMPRESSION: 1. Findings of bilateral lower lobe pneumonia without significant change in appearance since previous day's exam. Dictated by: Dictated on workstation # [id number]
[2020-08-15] MEDS: ENOXAPARIN 40 MG/0.4 ML (LOVENOX) SYR SC SCH ×2 (09:02→20:40)
[2020-08-15] MEDS: PANTOPRAZOLE 40 MG (PROTONIX) VIAL IV SCH (09:02)
[2020-08-15] MEDS: ANIDULAFUNGIN INJECTION 100 MG in NS (IVPB) 100 ML IV SCH (09:03)
[2020-08-15] MEDS: ARTIFICIAL TEARS OINT (LACRI-LUBE) 3.5 GM TUBE OU SCH ×2 (09:03→20:41)
[2020-08-15] MEDS: VITAMIN D3 125 MCG (5,000 UNITS) CAPSULE PO SCH (09:04)
[2020-08-15] MEDS: MIDAZOLAM DRIP PRE-MIX 100 ML IV SCH (09:06)
--- NOTE | 2020-08-15 12:57 | Physical Therapy Progress Note ---
Therapy Progress Note Pt currently intubated and sedated; skilled therapy services not performed this date. DANIEL BLAS PT Aug 15, 2020 12:57
--- NOTE | 2020-08-15 15:23 | NUR ---
Note pt currently receiving Pulmocare via 75ml bolus feeds q4h with 30ml water flushes before and after each bolus. Recommended to Goldie RN if pt tolerates the rate, then to increase to 90ml q4h on 08/16. Will continue to follow and reassess as pt needs, intake, and status change. Selma FELTON, MS RD LD [phone] CELL
[2020-08-15] MEDS: FAMOTIDINE 20MG/2ML IV (PEPCID) IV SCH (20:35)
[2020-08-15] MEDS: SERTRALINE 50 MG (ZOLOFT) TABLET PO SCH (20:35)
[2020-08-16] VITALS (30 sets, daily range): BP systolic 85–176; BP diastolic 37–101
[2020-08-16] MEDS: inSUlin ASPART (NovoLOG) 1 UNIT/0.01 ML (CHARGE PER UNIT) SC SCH ×5 (00:45→23:01)
[2020-08-16] MEDS: RT-ALBUTEROL INHALER HFA (VENTOLIN HFA) 18 GM IH SCH ×4 (01:25→18:18)
[2020-08-16] MEDS: KCL 20 MEQ TAB (K-DUR) PO SCH (01:32)
[2020-08-16] MEDS: MAGNESIUM 1 GM/100 ML IVPB 100 ML IV SCH ×2 (01:32→23:01)
[2020-08-16] MEDS: POTASSIUM CL 10MEQ/50ML IVPB 50 ML IV SCH ×2 (01:32→23:01)
[2020-08-16 03:01] LABS: BASOPHILS % (AUTO) 0 % (0-10); EOSINOPHILS # (AUTO) 0.2 10^3/uL (0.0-0.3); EOSINOPHILS % (AUTO) 3 % (0-10); HEMATOCRIT 23 % (35-52); HEMOGLOBIN 7.1 g/dL (11.5-16.0); LYMPHOCYTES % (AUTO) 12 % (12-44); MEAN CORPUSCULAR HEMOGLOBIN 27 pg (25-34); MEAN CORPUSCULAR HGB CONC 32 g/dL (32-36); MEAN CORPUSCULAR VOLUME 87 fL (80-99); MEAN PLATELET VOLUME 9.4 fL (9.0-12.2); MONOCYTES # (AUTO) 0.6 10^3/uL (0.0-1.0); MONOCYTES % (AUTO) 7 % (0-12); NEUTROPHILS # (AUTO) 5.5 10^3/uL (1.8-7.8); NEUTROPHILS % (AUTO) 68 % (42-75); PLATELET COUNT 285 10^3/uL (130-400); WHITE BLOOD COUNT 8.1 10^3/uL (4.3-11.0)
[2020-08-16 03:11] LABS: ABG BASE EXCESS 5.8 MMOL/L (-2.5-2.5); ABG OXYGEN SATURATION 96 % (94-100); ABG PCO2 43 MMHG (35-45); ABG PH 7.46 (7.37-7.43); ABG PO2 77 MMHG (79-93); ABG TCO2 31.1 MMOL/L (21.0-31.0)
[2020-08-16 03:18] LABS: CHLORIDE 99 MMOL/L (98-107); POTASSIUM 3.3 MMOL/L (3.6-5.0); SODIUM 130 MMOL/L (135-145)
[2020-08-16 03:20] LABS: CALCIUM 7.1 MG/DL (8.5-10.1); GLUCOSE 95 MG/DL (70-105)
[2020-08-16 03:22] LABS: CARBON DIOXIDE 25 MMOL/L (21-32)
[2020-08-16 03:24] LABS: CREATININE SERUM 0.37 MG/DL (0.60-1.30); PHOSPHORUS 2.6 MG/DL (2.3-4.7)
[2020-08-16 03:25] LABS: BUN/CREATININE RATIO 24
[2020-08-16 03:27] LABS: MAGNESIUM 1.9 MG/DL (1.6-2.4)
[2020-08-16 03:29] LABS: ALLENS TEST ARTLINE; PATIENT TEMP 36.6; VENTILATOR YES
[2020-08-16] MEDS ORDERED: NS IV 1000 ML 1,000 ML ONE (03:29)
[2020-08-16] MEDS ORDERED: NS IV 1000 ML 1,000 ML IV SCH (03:45)
[2020-08-16 03:56] LABS: GFR ESTIMATED > 60
[2020-08-16] MEDS: D5 LR IV SOLUTION 1,000 ML IV SCH ×2 (04:54→15:01)
--- NOTE | 2020-08-16 06:17 | Pulmonary Progress Note ---
Subjective Time Seen by a Provider: 06:12 Subjective/Events-last exam Pt is sedated on vent. Sepsis Event Evaluation Height, Weight, BMI Height: '" Weight: lbs. oz. kg; 26.88 BMI Method: Exam Exam Vital Signs Date Time Temp Pulse Resp B/P (MAP) Pulse Ox O2 Delivery O2 Flow Rate FiO2 08/16/20 02:32 Mechanical Ventilator 55.00 08/16/20 02:00 90 107/43 (64) 24 Mechanical Ventilator 45.00 08/16/20 01:25 87 24 93 45 08/16/20 01:00 80 101/43 (62) 23 Mechanical Ventilator 45.00 08/16/20 00:46 36.9 Mechanical Ventilator 45.00 08/16/20 00:00 79 85/40 (55) 23 Mechanical Ventilator 45.00 08/15/20 23:00 85 96/43 (60) 24 Mechanical Ventilator 45.00 08/15/20 22:00 101 98/43 (61) 23 Mechanical Ventilator 45.00 08/15/20 21:28 102 24 92 40 08/15/20 21:00 104 155/56 (89) 24 Mechanical Ventilator 45.00 08/15/20 20:30 37.3 Mechanical Ventilator 45.00 08/15/20 20:00 92 Mechanical Ventilator 45 08/15/20 20:00 95 148/63 (91) 28 Mechanical Ventilator 45.00 08/15/20 19:19 36.2 08/15/20 19:07 87 24 92 45 08/15/20 19:00 89 154/67 (96) 24 Mechanical Ventilator 45.00 08/15/20 18:53 93 08/15/20 18:00 85 24 78/39 (52) 92 Mechanical Ventilator 45.00 08/15/20 17:00 86 24 86/40 (55) 93 Mechanical Ventilator 45.00 08/15/20 16:00 89 24 86/42 (57) 93 Mechanical Ventilator 45.00 08/15/20 15:31 36.5 08/15/20 15:06 94 24 95 50 08/15/20 15:00 90 24 91/41 (58) 94 Mechanical Ventilator 45.00 08/15/20 14:36 45.00 08/15/20 14:00 86 23 89/42 (58) 95 Mechanical Ventilator 60.00 08/15/20 13:00 90 23 96/45 (62) 96 Mechanical Ventilator 60.00 08/15/20 12:42 92 08/15/20 12:00 90 24 128/55 (79) 96 Mechanical Ventilator 60.00 08/15/20 11:55 37.0 08/15/20 11:34 93 24 96 50 08/15/20 11:00 96 23 96/45 (62) 96 Mechanical Ventilator 60.00 08/15/20 10:00 96 23 122/53 (76) 96 Mechanical Ventilator 60.00 08/15/20 09:06 96 20 128/53 08/15/20 09:00 92 24 87/40 (56) 94 Mechanical Ventilator 60.00 08/15/20 09:00 90 Mechanical Ventilator 60 08/15/20 08:22 100 24 97 60 08/15/20 08:00 92 24 111/44 (66) 94 Mechanical Ventilator 60.00 08/15/20 07:40 36.2 08/15/20 07:00 98 23 110/50 (70) 96 Mechanical Ventilator 60.00 08/15/20 06:47 102 I & O 08/16/20 07:00 Intake Total 2440 ml Output Total 1371 ml Balance 1069 ml Height & Weight Height: '" Weight: lbs. oz. kg; 26.88 BMI Method: General Appearance: Chronically ill, Other (sedated on vent) HEENT: PERRL/EOMI, Moist Mucous Membranes; No Scleral Icterus (L), No Scleral Icterus (R) Neck: Normal Inspection, Supple Respiratory: Decreased Breath Sounds; No Rhonci, No Wheezing; Other (on vent) Cardiovascular: Regular Rate, Rhythm, No Murmur Capillary Refill: Less Than 3 Seconds Extremity: Other (no pedal edema, pressure boots in place) Neurologic/Psychiatric: Other (sedated, appears comfortable) Skin: Normal Color, Warm/Dry Results Lab Laboratory Tests 08/15/20 02:20 08/16/20 02:45 Assessment/Plan Assessment/Plan Acute respiratory failure due to COVID-19 with severe ARDS -Start TF -continue ventilator care . Change vent to vt 370, RR 22, and PEEP 10 -Repeat ABG in 1hr -Intubated 08/07 -s/p Decadron s/p remdesivir and convalescent plasma -Proning D/C'd secondary to chest tube. -Chest tube is currently to water seal -Decrease IVF to 30cc/hr Hypogycemia -Change to D5LR at 30 Hypokalemia and hypophos -replace left PTX -Chest tube placement 08/08 Possible bacterial pneumonia - s/p Cefepime -Eraxis Hypotension Now off Levophed -Give a liter bolus Thrombocytopenia-- improving - HIT Abx is negative D/C Angiomax Nausea and vomiting Antiemetics as needed Hyponatremia Hypokalemia Monitor and replace as needed Debility PT/OT DVT/GI - ppx: Lovenox, Protonix Discussed with family in detail and answered all questions to the best of my ability. TITO STEVE DO Aug 16, 2020 06:17
[2020-08-16] MEDS: ADVAIR HFA 115/21 MCG INHALER 8 GM IH SCH ×2 (07:19→18:17)
--- NOTE | 2020-08-16 07:42 | Diagnostic Imaging Report ---
INDICATION: COVID pneumonia. Comparison made with prior examination from 08/15/2020 FINDINGS: The heart size is normal. There are unchanged diffuse bilateral pulmonary infiltrates. There is pleural effusion or pneumothorax. Lines and tubes are in satisfactory position. IMPRESSION: Persistent diffuse bilateral airspace disease suspect for underlying pneumonia. Dictated by: Dictated on workstation # [id number]
[2020-08-16] MEDS: ANIDULAFUNGIN INJECTION 100 MG in NS (IVPB) 100 ML IV SCH (08:24)
[2020-08-16] MEDS: ACETAMINOPHEN 325 MG TABLET PO PRN ×2 (08:25→19:30)
[2020-08-16] MEDS: ENOXAPARIN 40 MG/0.4 ML (LOVENOX) SYR SC SCH ×2 (08:25→21:39)
[2020-08-16] MEDS: VITAMIN D3 125 MCG (5,000 UNITS) CAPSULE PO SCH (08:25)
[2020-08-16] MEDS: FAMOTIDINE 20MG/2ML IV (PEPCID) IV SCH ×2 (08:25→21:38)
[2020-08-16] MEDS ORDERED: POTASSIUM PHOSPHATE INJ 30 MM in NS (IVPB) 250 ML IV ONE (09:00)
[2020-08-16] MEDS: MIDAZOLAM DRIP PRE-MIX 100 ML IV SCH ×2 (09:34→10:01)
[2020-08-16] MEDS: ARTIFICIAL TEARS OINT (LACRI-LUBE) 3.5 GM TUBE OU SCH ×2 (09:35→21:39)
[2020-08-16] MEDS: fentaNYL DRIP PRE-MIX 250 ML IV SCH (10:23)
[2020-08-16 10:37] LABS: ABG BASE EXCESS 3.2 MMOL/L (-2.5-2.5); ABG OXYGEN SATURATION 98 % (94-100); ABG PCO2 38 MMHG (35-45); ABG PH 7.47 (7.37-7.43); ABG PO2 93 MMHG (79-93)
[2020-08-16 10:46] LABS: ALLENS TEST ART LINE; VENTILATOR YES
--- NOTE | 2020-08-16 13:22 | Physical Therapy Progress Note ---
Therapy Progress Note Pt remains intubated and sedated. PROM B U/LE all available planes. DANIEL BLAS PT Aug 16, 2020 13:22
--- NOTE | 2020-08-16 13:52 | NUR ---
THIS CALLED PT'S SON, AMANDA SNEED, AND PROVIDED UPDATE ON PT. AMANDA PAEZ VERY THANKFUL FOR UPDATE.
--- NOTE | 2020-08-16 15:19 | NUR ---
Note pt currently receiving Pulmocare via 75ml bolus feeds q4h with 30ml water flushes before and after each bolus. Pt is tolerating well, per Kaylynn MARK. Recommend increasing to 90ml q4h and monitoring for tolerance. Will continue to follow and reassess as pt needs, intake, and status change. Selma FELTON, MS RD LD
[2020-08-16] MEDS: morphine INJ 4 MG/ML 1 ML (VIAL/SYRINGE) IVP PRN (18:01)
--- NOTE | 2020-08-16 18:26 | NUR ---
THIS RN CALLED TELE-ICU TO NOTIFY THE PHYSICIAN OF CHANGES IN PT STATUS. THIS RN NOTIFIED NARESH FROM TELE-ICU THAT THE PT HAD NEW ONSET TACHYCARDIA WITH A RUN OF V.TACH - EKG OBTAINED THAT SHOWED SINUS TACHYCARDIA - PT HR STILL 120S. THIS RN ALSO NOTIFIED NARESH, TELE-ICU THAT THE PT DESATURATED - WAS ON 55% FIO2, NO NOW ON 100% FIO2. THIS RN ALSO NOTIFIED NARESH TELE-ICU THAT PT HYPERTENSIVE WHICH IS DIFFERENT FROM PT BEING HYPOTENSIVE PREVIOUSLY IN THE SHIFT. THIS RN ALSO STATED THAT 1MG MORPHINE IVP GIVEN. PHYSICIAN BUSY WITH ANOTHER CALL, THIS RN TO AWAIT PHONE CALL FROM PHYSICIAN.
[2020-08-16] MEDS: SERTRALINE 50 MG (ZOLOFT) TABLET PO SCH (21:39)
[2020-08-16 21:54] LABS: BASOPHILS # (AUTO) 0.1 10^3/uL (0.0-0.1); BASOPHILS % (AUTO) 1 % (0-10); EOSINOPHILS # (AUTO) 0.1 10^3/uL (0.0-0.3); EOSINOPHILS % (AUTO) 1 % (0-10); HEMATOCRIT 24 % (35-52); HEMOGLOBIN 7.6 g/dL (11.5-16.0); LYMPHOCYTES # (AUTO) 0.8 10^3/uL (1.0-4.0); LYMPHOCYTES % (AUTO) 8 % (12-44); MEAN CORPUSCULAR HEMOGLOBIN 27 pg (25-34); MEAN CORPUSCULAR HGB CONC 32 g/dL (32-36); MEAN CORPUSCULAR VOLUME 85 fL (80-99); MEAN PLATELET VOLUME 9.2 fL (9.0-12.2); MONOCYTES # (AUTO) 0.5 10^3/uL (0.0-1.0); MONOCYTES % (AUTO) 5 % (0-12); NEUTROPHILS % (AUTO) 78 % (42-75); PLATELET COUNT 346 10^3/uL (130-400); WHITE BLOOD COUNT 10.3 10^3/uL (4.3-11.0)
[2020-08-16 22:03] LABS: CHLORIDE 99 MMOL/L (98-107); POTASSIUM 3.3 MMOL/L (3.6-5.0); SODIUM 131 MMOL/L (135-145)
[2020-08-16 22:04] LABS: INR 1.2 (0.8-1.4); PROTHROMBIN TIME PATIENT 15.8 SEC (12.2-14.7)
[2020-08-16 22:05] LABS: GLUCOSE 106 MG/DL (70-105)
[2020-08-16 22:06] LABS: CARBON DIOXIDE 24 MMOL/L (21-32)
[2020-08-16 22:09] LABS: BUN/CREATININE RATIO 19; CREATININE SERUM 0.36 MG/DL (0.60-1.30)
[2020-08-16 22:11] LABS: MAGNESIUM 1.6 MG/DL (1.6-2.4)
[2020-08-16 22:21] LABS: BAND NEUTROPHILS 3 %; NEUTROPHILS % (MANUAL) 82 %
[2020-08-16 22:22] LABS: ANISOCYTOSIS SLIGHT; BASOPHILS % (MANUAL) 0 %; EOSINOPHILS % (MANUAL) 4 %; HYPOCHROMASIA SLIGHT; LYMPHOCYTES % (MANUAL) 7 %; METAMYELOCYTES % 3 %; MONOCYTES % (MANUAL) 1 %; POLYCHROMASIA SLIGHT
[2020-08-16 22:37] LABS: GFR ESTIMATED > 60
[2020-08-17] VITALS (31 sets, daily range): BP systolic 91–152; BP diastolic 45–75
[2020-08-17] MEDS: fentaNYL DRIP PRE-MIX 250 ML IV SCH ×2 (00:13→12:52)
[2020-08-17] MEDS: POTASSIUM CL 10MEQ/50ML IVPB 50 ML IV SCH ×4 (00:13→02:41)
[2020-08-17] MEDS: MAGNESIUM 1 GM/100 ML IVPB 100 ML IV SCH ×2 (00:13→02:23)
[2020-08-17] MEDS: RT-ALBUTEROL INHALER HFA (VENTOLIN HFA) 18 GM IH PRN (01:39)
[2020-08-17] MEDS: KCL 20 MEQ TAB (K-DUR) PO SCH (02:24)
[2020-08-17 03:01] LABS: ABG BASE EXCESS 2.9 MMOL/L (-2.5-2.5); ABG OXYGEN SATURATION 97 % (94-100); ABG PCO2 43 MMHG (35-45); ABG PH 7.42 (7.37-7.43); ABG PO2 83 MMHG (79-93); ABG TCO2 28.5 MMOL/L (21.0-31.0)
[2020-08-17 03:02] LABS: BASOPHILS % (AUTO) 0 % (0-10); EOSINOPHILS # (AUTO) 0.2 10^3/uL (0.0-0.3); EOSINOPHILS % (AUTO) 2 % (0-10); HEMATOCRIT 23 % (35-52); HEMOGLOBIN 7.4 g/dL (11.5-16.0); LYMPHOCYTES # (AUTO) 1.1 10^3/uL (1.0-4.0); LYMPHOCYTES % (AUTO) 12 % (12-44); MEAN CORPUSCULAR HEMOGLOBIN 27 pg (25-34); MEAN CORPUSCULAR HGB CONC 32 g/dL (32-36); MEAN CORPUSCULAR VOLUME 85 fL (80-99); MEAN PLATELET VOLUME 9.3 fL (9.0-12.2); MONOCYTES # (AUTO) 0.5 10^3/uL (0.0-1.0); MONOCYTES % (AUTO) 6 % (0-12); NEUTROPHILS # (AUTO) 6.8 10^3/uL (1.8-7.8); NEUTROPHILS % (AUTO) 74 % (42-75); PLATELET COUNT 355 10^3/uL (130-400); WHITE BLOOD COUNT 9.2 10^3/uL (4.3-11.0)
[2020-08-17 03:10] LABS: ALLENS TEST ARTLINE; INSPIRED O2 75; PATIENT TEMP 36.8; VENTILATOR YES
[2020-08-17 03:12] LABS: CHLORIDE 99 MMOL/L (98-107)
[2020-08-17 03:13] LABS: POTASSIUM 3.7 MMOL/L (3.6-5.0); SODIUM 129 MMOL/L (135-145)
[2020-08-17 03:14] LABS: CALCIUM 7.1 MG/DL (8.5-10.1); GLUCOSE 99 MG/DL (70-105)
[2020-08-17 03:15] LABS: TRIGLYCERIDES 165 MG/DL (<150)
[2020-08-17 03:16] LABS: CARBON DIOXIDE 23 MMOL/L (21-32)
[2020-08-17 03:18] LABS: CREATININE SERUM 0.33 MG/DL (0.60-1.30); PHOSPHORUS 3.3 MG/DL (2.3-4.7)
[2020-08-17 03:19] LABS: BUN/CREATININE RATIO 21
[2020-08-17 03:20] LABS: MAGNESIUM 2.1 MG/DL (1.6-2.4)
[2020-08-17 03:30] LABS: GFR ESTIMATED > 60
--- NOTE | 2020-08-17 04:15 | Pulmonary Progress Note ---
Subjective Time Seen by a Provider: 04:08 Subjective/Events-last exam Pt is sedated on vent. Sepsis Event Evaluation Height, Weight, BMI Height: '" Weight: lbs. oz. kg; 26.88 BMI Method: Focused Exam Lactate Level 08/16/20 21:40: Lactic Acid Level 0.74 Exam Exam Vital Signs Date Time Temp Pulse Resp B/P (MAP) Pulse Ox O2 Delivery O2 Flow Rate FiO2 08/17/20 01:39 107 24 90 100 08/16/20 22:59 37.0 Mechanical Ventilator 90.00 08/16/20 21:58 36.7 08/16/20 21:10 110 24 96 100 08/16/20 20:00 36.7 08/16/20 20:00 86 Mechanical Ventilator 100 08/16/20 19:38 37.9 131 38 160/64 (96) 86 Mechanical Ventilator 100.00 08/16/20 19:35 134 37 82 45 08/16/20 19:30 37.9 08/16/20 19:00 122 08/16/20 18:18 128 27 93 100 08/16/20 18:00 133 55 176/101 (126) 87 Mechanical Ventilator 55.00 08/16/20 17:00 92 22 112/52 (72) 92 Mechanical Ventilator 55.00 08/16/20 16:10 37.4 08/16/20 16:00 101 10 139/60 (86) 95 Mechanical Ventilator 55.00 08/16/20 15:24 37.1 08/16/20 15:00 98 22 117/45 (69) 94 Mechanical Ventilator 55.00 08/16/20 14:28 101 25 94 55 08/16/20 14:00 99 20 153/64 (93) 87 Mechanical Ventilator 55.00 08/16/20 13:35 81 12 86/39 08/16/20 13:00 77 21 89/41 (57) 91 Mechanical Ventilator 55.00 08/16/20 12:39 80 08/16/20 12:00 90 103/44 (63) 90 Mechanical Ventilator 55.00 08/16/20 11:37 36.9 08/16/20 11:29 111 17 144/61 08/16/20 11:00 101 22 109/53 (71) 93 Mechanical Ventilator 55.00 08/16/20 10:01 93 22 98/48 08/16/20 10:00 92 22 96/46 (63) 93 Mechanical Ventilator 55.00 08/16/20 09:00 90 14 104/45 (64) 92 Mechanical Ventilator 55.00 08/16/20 08:55 37.0 08/16/20 08:42 92 Mechanical Ventilator 55 08/16/20 08:25 38.0 08/16/20 08:00 90 24 108/46 (66) 92 Mechanical Ventilator 55.00 08/16/20 07:26 37.8 08/16/20 07:19 107 25 93 55 08/16/20 07:00 105 23 140/61 (87) 93 Mechanical Ventilator 55.00 08/16/20 06:50 93 08/16/20 06:00 82 24 104/43 (63) 94 Mechanical Ventilator 55.00 08/16/20 05:00 82 23 92/37 (55) 94 Mechanical Ventilator 55.00 I & O 08/17/20 07:00 Intake Total 2175 ml Output Total 955 ml Balance 1220 ml Height & Weight Height: '" Weight: lbs. oz. kg; 26.88 BMI Method: General Appearance: Chronically ill, Other (sedated on vent) HEENT: PERRL/EOMI, Moist Mucous Membranes; No Scleral Icterus (L), No Scleral Icterus (R) Neck: Normal Inspection, Supple Respiratory: Decreased Breath Sounds; No Rhonci, No Wheezing; Other (on vent) Cardiovascular: Regular Rate, Rhythm, No Murmur Capillary Refill: Less Than 3 Seconds Extremity: Other (no pedal edema, pressure boots in place) Neurologic/Psychiatric: Other (sedated, appears comfortable) Skin: Normal Color, Warm/Dry Results Lab Laboratory Tests 08/16/20 02:45 08/16/20 21:40 08/17/20 02:45 Assessment/Plan Assessment/Plan Acute respiratory failure due to COVID-19 with severe ARDS -Start TF -continue ventilator care . Change vent to vt 370, RR 22, and PEEP 12 -Intubated 08/07 -s/p Decadron s/p remdesivir and convalescent plasma -Proning D/C'd secondary to chest tube. -Chest tube is currently to water seal -25ml of pleural fluid output over last 12hrs. - IVF to 30cc/hr D5LR Hypogycemia - D5LR at 30 left PTX -Chest tube placement 08/08 Possible bacterial pneumonia - s/p Cefepime -Eraxis Hypotension Now off Levophed Thrombocytopenia-- improving - HIT Abx is negative D/C Angiomax Nausea and vomiting Antiemetics as needed Hyponatremia Hypokalemia Monitor and replace as needed Debility PT/OT DVT/GI - ppx: Lovenox, pepcid Discussed with family in detail and answered all questions to the best of my ability. TITO STEVE DO Aug 17, 2020 04:15
[2020-08-17] MEDS: inSUlin ASPART (NovoLOG) 1 UNIT/0.01 ML (CHARGE PER UNIT) SC SCH ×4 (04:30→23:38)
--- NOTE | 2020-08-17 06:53 | Diagnostic Imaging Report ---
EXAMINATION: Chest radiograph, portable AP view. DATE: 08/17/2020 1:09 AM INDICATION: 74-year-old female, COVID infection. Shortness of breath. COMPARISON: August 16, 2020. FINDINGS: The endotracheal tube is approximately 3 cm above the jeffrey. The left-sided PIC line overlies the mid SVC. The nasogastric tube extends below the included field of view. Heart size and mediastinal contours are unchanged. There are bilateral shoulder prostheses. There is no identified pneumothorax. There is multifocal bilateral lung consolidation with a similar appearance to the comparison study. IMPRESSION: 1. Grossly unchanged multifocal bilateral lung consolidation. 2. Support lines and tubes as above. Report was faxed to [facility] Infection Control by mike at 7:10AM. Dictated by: Dictated on workstation # [id number]
[2020-08-17] MEDS: ADVAIR HFA 115/21 MCG INHALER 8 GM IH SCH ×2 (07:29→23:04)
[2020-08-17] MEDS: RT-ALBUTEROL INHALER HFA (VENTOLIN HFA) 18 GM IH SCH ×3 (07:29→23:03)
[2020-08-17] MEDS: ANIDULAFUNGIN INJECTION 100 MG in NS (IVPB) 100 ML IV SCH (08:52)
[2020-08-17] MEDS: ARTIFICIAL TEARS OINT (LACRI-LUBE) 3.5 GM TUBE OU SCH ×2 (08:52→20:52)
[2020-08-17] MEDS: FAMOTIDINE 20MG/2ML IV (PEPCID) IV SCH ×2 (08:52→20:52)
[2020-08-17] MEDS: VITAMIN D3 125 MCG (5,000 UNITS) CAPSULE PO SCH (08:53)
[2020-08-17] MEDS: ENOXAPARIN 40 MG/0.4 ML (LOVENOX) SYR SC SCH ×2 (08:53→19:40)
--- NOTE | 2020-08-17 10:20 | NUR ---
CHEST TUBE DRESSING CHANGED AT THIS TIME. XEROFORM, 4X4S, ABD, AND FOAM TAPE APPLIED.
--- NOTE | 2020-08-17 11:24 | Physical Therapy Progress Note ---
Therapy Progress Note Patient sedated and ventilated. PROM all extremities. CRISTINO JEFFREY PT Aug 17, 2020 11:23
--- NOTE | 2020-08-17 13:44 | NUR ---
THIS RN ATTEMPTED TO CALL PT'S SON, AMANDA PAEZ, TO PROVIDE UPDATE. NO ANSWER FROM PT'S SON.
--- NOTE | 2020-08-17 13:51 | NUR ---
Note pt currently intubated/sedated. Note pt currently receiving Pulmocare via 75ml bolus feeds q4h, with 30ml water flushes before and after each bolus. Recommend increase TF by 30ml q8h as tolerated, toward goal of 175ml bolus feeds q4h. Will continue to follow and reassess as pt needs, intake, and status change. Yonas Terry, MS RD [phone] cell
--- NOTE | 2020-08-17 14:56 | NUR ---
THIS RN SPOKE WITH PT'S SON, AMANDA , AND PROVIDED AN UPDATE.
--- NOTE | 2020-08-17 16:31 | NUR ---
THIS RN NOTIFIED DR. LEE OF HYPOTENSION, BP 80S/40S. THIS RN INSTRUCTED TO DRAW H&H AND GIVE ALBUMIN. ORDERS PLACED BY DR. LEE, SEE ORDER HX.
[2020-08-17] MEDS ORDERED: ALBUMIN 25% 25 GM/100 ML 100 ML IV ONE ×2 (16:36→16:45)
[2020-08-17] MEDS ORDERED: NS IV 500 ML 500 ML IV SCH ×2 (18:00)
[2020-08-17] MEDS: MIDAZOLAM DRIP PRE-MIX 100 ML IV SCH (18:28)
[2020-08-17] MEDS: NOREPINEPHRINE 4 MG/250 ML 250 ML IV SCH (18:31)
--- NOTE | 2020-08-17 18:39 | NUR ---
THIS RN SPOKE WITH DR. LEE ABOUT PT'S CONTINUED HYPOTENSION DESPITE GIVING ALBUMIN. THIS RN INSTRUCTED TO START PT ON LEVOPHED, GIVE 1UNIT PRBC, AND TO HOLD DOSE OF LOVENOX THIS EVENING.
--- NOTE | 2020-08-17 18:45 | NUR ---
THIS RN CALLED PT'S SON, AMANDA PAEZ, AND GAVE UPDATE ON PT'S HYPOTENSION, NEED FOR PRESSOR, DECREASED HEMOGLOBIN, AND NEED FOR BLOOD TRANSFUSION. PT'S SON QUESTIONED WHETHER THE PT NEEDS TRANSFERRED TO ANOTHER FACILITY FOR DIALYSIS - THE SON INFORMED THAT THE PT'S RENAL FUNCTION IS NOT OF CONCERN AT THIS TIME. PT'S SON INQUIRED IF PT IS SEPTIC OR IN ACIDOSIS, THIS RN STATED THAT THE PT IS NOT SEPTIC AND IS NOT ACIDOTIC. THIS RN INFORMED THE SON THAT THIS RN AND/OR [employer]PERATOR RN WOULD CALL IF THERE ARE ANY CHANGES. PT'S SON THANKFUL FOR UPDATE.
[2020-08-17] MEDS: SERTRALINE 50 MG (ZOLOFT) TABLET PO SCH (20:51)
[2020-08-18] VITALS (67 sets, daily range): BP systolic 96–154; BP diastolic 44–73
[2020-08-18] MEDS: fentaNYL DRIP PRE-MIX 250 ML IV SCH ×3 (01:07→21:20)
[2020-08-18] MEDS: RT-ALBUTEROL INHALER HFA (VENTOLIN HFA) 18 GM IH PRN (02:23)
[2020-08-18] MEDS: NOREPINEPHRINE 4 MG/250 ML 250 ML IV SCH ×3 (03:24→18:38)
[2020-08-18 03:27] LABS: ABG BASE EXCESS 2.9 MMOL/L (-2.5-2.5); ABG OXYGEN SATURATION 98 % (94-100); ABG PCO2 41 MMHG (35-45); ABG PH 7.43 (7.37-7.43); ABG PO2 80 MMHG (79-93); ABG TCO2 28.3 MMOL/L (21.0-31.0); BASOPHILS % (AUTO) 0 % (0-10); EOSINOPHILS # (AUTO) 0.2 10^3/uL (0.0-0.3); EOSINOPHILS % (AUTO) 3 % (0-10); HEMATOCRIT 24 % (35-52); HEMOGLOBIN 7.8 g/dL (11.5-16.0); LYMPHOCYTES # (AUTO) 1.1 10^3/uL (1.0-4.0); LYMPHOCYTES % (AUTO) 13 % (12-44); MEAN CORPUSCULAR HEMOGLOBIN 27 pg (25-34); MEAN CORPUSCULAR HGB CONC 32 g/dL (32-36); MEAN CORPUSCULAR VOLUME 85 fL (80-99); MONOCYTES # (AUTO) 0.6 10^3/uL (0.0-1.0); MONOCYTES % (AUTO) 7 % (0-12); NEUTROPHILS # (AUTO) 5.7 10^3/uL (1.8-7.8); NEUTROPHILS % (AUTO) 70 % (42-75); PLATELET COUNT 389 10^3/uL (130-400); WHITE BLOOD COUNT 8.2 10^3/uL (4.3-11.0)
[2020-08-18 03:30] LABS: INSPIRED O2 60; PATIENT TEMP 36.3; VENTILATOR YES
[2020-08-18 03:48] LABS: CHLORIDE 99 MMOL/L (98-107); POTASSIUM 3.3 MMOL/L (3.6-5.0); SODIUM 131 MMOL/L (135-145)
[2020-08-18 03:49] LABS: CALCIUM 7.3 MG/DL (8.5-10.1)
[2020-08-18 03:50] LABS: GLUCOSE 106 MG/DL (70-105)
[2020-08-18 03:51] LABS: CARBON DIOXIDE 25 MMOL/L (21-32)
[2020-08-18 03:54] LABS: BUN/CREATININE RATIO 18; CREATININE SERUM 0.34 MG/DL (0.60-1.30); GFR ESTIMATED > 60
[2020-08-18 04:19] LABS: PHOSPHORUS 2.9 MG/DL (2.3-4.7)
[2020-08-18 04:21] LABS: MAGNESIUM 1.7 MG/DL (1.6-2.4)
[2020-08-18] MEDS: POTASSIUM CL 10MEQ/50ML IVPB 50 ML IV SCH ×5 (05:05→08:46)
[2020-08-18] MEDS: KCL 20 MEQ TAB (K-DUR) PO SCH (05:05)
[2020-08-18] MEDS: MAGNESIUM 1 GM/100 ML IVPB 100 ML IV SCH ×3 (05:05→06:02)
[2020-08-18] MEDS: inSUlin ASPART (NovoLOG) 1 UNIT/0.01 ML (CHARGE PER UNIT) SC SCH ×4 (05:06→23:34)
[2020-08-18] MEDS: D5 LR IV SOLUTION 1,000 ML IV SCH (05:12)
--- NOTE | 2020-08-18 06:35 | Diagnostic Imaging Report ---
INDICATION: COVID pneumonia. Comparison is made with prior examination from 08/17/2020. FINDINGS: There are bilateral pulmonary infiltrates. Heart size is stable. There is some venous congestion. There is no pneumothorax. The lines and tubes are in satisfactory position. IMPRESSION: Persistent diffuse bilateral pulmonary infiltrates compatible with pneumonia. There also appears to be some central pulmonary venous congestion. Dictated by: Dictated on workstation # [id number]
[2020-08-18] MEDS: RT-ALBUTEROL INHALER HFA (VENTOLIN HFA) 18 GM IH SCH ×3 (07:31→20:17)
[2020-08-18] MEDS: ADVAIR HFA 115/21 MCG INHALER 8 GM IH SCH ×2 (07:31→21:46)
[2020-08-18] MEDS: ARTIFICIAL TEARS OINT (LACRI-LUBE) 3.5 GM TUBE OU SCH ×2 (08:35→20:06)
[2020-08-18] MEDS: ANIDULAFUNGIN INJECTION 100 MG in NS (IVPB) 100 ML IV SCH (08:35)
[2020-08-18] MEDS: FAMOTIDINE 20MG/2ML IV (PEPCID) IV SCH ×2 (08:35→20:06)
[2020-08-18] MEDS: VITAMIN D3 125 MCG (5,000 UNITS) CAPSULE PO SCH (08:35)
[2020-08-18] MEDS: ENOXAPARIN 40 MG/0.4 ML (LOVENOX) SYR SC SCH (08:46)
--- NOTE | 2020-08-18 11:46 | NUR ---
PER DR. LEE, LOVENOX DECREASED TO ONCE DAILY. MORNING DOSE ADMINISTERED, THIS RN INSTRUCTED TO NOT ADMINISTERED EVENING DOSE. DR. LEE STATED THAT IF THE PT HAS NO S/S OF BLEEDING, BID DOSING CAN RESUME TOMORROW 08/19/2020.
--- NOTE | 2020-08-18 11:50 | Progress Note - Hospitalist ---
Subjective HPI/CC On Admission Date Seen by Provider: Aug 18, 2020 Time Seen by Provider: 11:15 Pt is a 74yoCF who was direct admitted from [facility] Urgent care due to COVID19. She states that her beckybadn was diagnosed with COVID on 07/19 and she came back positive the next day as well. She woke up that morning thinking she had pneumonia and had a dry hacking cough. She had a fever of 104.7 this morning prompting her to seek evaluation back at the urgent care. She is on roughly day 7 of symptoms and her sats were 91% at urgent care prompting them to recommend admission. She reports feeling much better now that she is here but continues to have dry cough. Subjective/Events-last exam Patient maintained on vent No issues per RN 25 days inpatient Prognosis guarded Focused Exam Lactate Level 08/16/20 21:40: Lactic Acid Level 0.74 Objective Exam Vital Signs Vital Signs Date Time Temp Pulse Resp B/P (MAP) Pulse Ox O2 Delivery O2 Flow Rate FiO2 08/19/20 06:59 89 23 93 60 08/19/20 06:00 118/73 (88) Mechanical Ventilator 60.00 08/19/20 00:27 37.1 Capillary Refill : Less Than 3 SecondsLess Than 3 Seconds General Appearance: No Apparent Distress, WD/WN, Chronically ill Respiratory: Normal Breath Sounds Cardiovascular: Regular Rate, Rhythm Neurologic/Psychiatric: Other (sedated) Results/Procedures Lab Laboratory Tests 08/19/20 02:50 Patient resulted labs reviewed. Imaging: Reviewed Imaging Report Assessment/Plan Assessment and Plan Assess & Plan/Chief Complaint Assessment per Dr Campbell with my modifications in bold italic: Acute respiratory failure due to COVID-19 with severe ARDS -Start TF -continue ventilator care . Change vent to vt 370, RR 22, and PEEP 12 -Intubated 08/07 -s/p Decadron s/p remdesivir and convalescent plasma -Proning D/C'd secondary to chest tube. -Chest tube is currently to water seal -25ml of pleural fluid output over last 12hrs. - IVF to 30cc/hr D5LR Hypogycemia - D5LR at 30 left PTX -Chest tube placement 08/08 Possible bacterial pneumonia - s/p Cefepime -Eraxis Hypotension Now off Levophed Thrombocytopenia-- improving - HIT Abx is negative D/C Angiomax Nausea and vomiting Antiemetics as needed Hyponatremia Hypokalemia Monitor and replace as needed Debility PT/OT DVT/GI - ppx: Lovenox, pepcid Prognosis guarded, 25 days in hospital and intubated 08/07 Critical Care Critically Ill Patient Clinical Quality Measures DVT/VTE Risk/Contraindication: Risk Factor Score Per Nursin RFS Level Per Nursing on Admit: 4+=Very High MARIFER ANN DO Aug 18, 2020 11:50
[2020-08-18] MEDS: morphine INJ 4 MG/ML 1 ML (VIAL/SYRINGE) IVP PRN (14:12)
--- NOTE | 2020-08-18 14:52 | NUR ---
THIS RN CALLED PT'S SON, AMANDA PAEZ, AND PROVIDED UPDATE. PT'S SON THANKFUL FOR UPDATE
[2020-08-18] MEDS: SERTRALINE 50 MG (ZOLOFT) TABLET PO SCH (20:06)
[2020-08-18] MEDS: ACETAMINOPHEN 325 MG TABLET PO PRN (23:28)
[2020-08-19] VITALS (66 sets, daily range): BP systolic 86–180; BP diastolic 40–132
[2020-08-19] MEDS: RT-ALBUTEROL INHALER HFA (VENTOLIN HFA) 18 GM IH SCH ×4 (02:04→19:17)
[2020-08-19] MEDS: RT-ALBUTEROL INHALER HFA (VENTOLIN HFA) 18 GM IH PRN (02:07)
[2020-08-19 03:17] LABS: ABG BASE EXCESS 3.1 MMOL/L (-2.5-2.5); ABG OXYGEN SATURATION 97 % (94-100); ABG PCO2 49 MMHG (35-45); ABG PH 7.37 (7.37-7.43); ABG PO2 88 MMHG (79-93); ABG TCO2 29.5 MMOL/L (21.0-31.0)
[2020-08-19 03:19] LABS: HEMOGLOBIN 8.1 g/dL (11.5-16.0); MEAN PLATELET VOLUME 9.3 fL (9.0-12.2); WHITE BLOOD COUNT 6.6 10^3/uL (4.3-11.0)
[2020-08-19] MEDS: NOREPINEPHRINE 4 MG/250 ML 250 ML IV SCH ×3 (03:21→19:49)
[2020-08-19 03:29] LABS: INSPIRED O2 60; PATIENT TEMP 36.4; VENTILATOR YES
[2020-08-19 03:34] LABS: CHLORIDE 99 MMOL/L (98-107); POTASSIUM 3.3 MMOL/L (3.6-5.0); SODIUM 132 MMOL/L (135-145)
[2020-08-19 03:35] LABS: CALCIUM 7.4 MG/DL (8.5-10.1)
[2020-08-19 03:36] LABS: GLUCOSE 111 MG/DL (70-105)
[2020-08-19 03:37] LABS: CARBON DIOXIDE 24 MMOL/L (21-32)
[2020-08-19 03:39] LABS: CREATININE SERUM 0.37 MG/DL (0.60-1.30); GFR ESTIMATED > 60; PHOSPHORUS 2.9 MG/DL (2.3-4.7)
[2020-08-19 03:40] LABS: BUN/CREATININE RATIO 16
[2020-08-19 03:42] LABS: MAGNESIUM 1.8 MG/DL (1.6-2.4)
[2020-08-19] MEDS: POTASSIUM CL 10MEQ/50ML IVPB 50 ML IV SCH ×3 (03:46→05:51)
[2020-08-19] MEDS: MAGNESIUM 1 GM/100 ML IVPB 100 ML IV SCH (03:46)
[2020-08-19] MEDS: KCL 20 MEQ TAB (K-DUR) PO SCH (03:46)
[2020-08-19] MEDS: inSUlin ASPART (NovoLOG) 1 UNIT/0.01 ML (CHARGE PER UNIT) SC SCH ×4 (05:10→23:28)
[2020-08-19] MEDS: D5 LR IV SOLUTION 1,000 ML IV SCH ×2 (05:51→12:29)
[2020-08-19] MEDS: fentaNYL DRIP PRE-MIX 250 ML IV SCH ×2 (06:28→17:13)
[2020-08-19] MEDS: ADVAIR HFA 115/21 MCG INHALER 8 GM IH SCH ×2 (06:58→19:17)
[2020-08-19] MEDS: FAMOTIDINE 20MG/2ML IV (PEPCID) IV SCH ×2 (08:32→20:32)
[2020-08-19] MEDS: VITAMIN D3 125 MCG (5,000 UNITS) CAPSULE PO SCH (08:32)
[2020-08-19] MEDS: ARTIFICIAL TEARS OINT (LACRI-LUBE) 3.5 GM TUBE OU SCH ×2 (08:32→20:32)
[2020-08-19] MEDS: ENOXAPARIN 40 MG/0.4 ML (LOVENOX) SYR SC SCH (08:32)
[2020-08-19] MEDS: MIDAZOLAM DRIP PRE-MIX 100 ML IV SCH (08:32)
[2020-08-19] MEDS: ANIDULAFUNGIN INJECTION 100 MG in NS (IVPB) 100 ML IV SCH (08:36)
--- NOTE | 2020-08-19 11:53 | Progress Note - Hospitalist ---
Subjective HPI/CC On Admission Date Seen by Provider: Aug 19, 2020 Time Seen by Provider: 11:00 Pt is a 74yoCF who was direct admitted from [facility]gent care due to COVID19. She states that her beckybadn was diagnosed with COVID on 07/19 and she came back positive the next day as well. She woke up that morning thinking she had pneumonia and had a dry hacking cough. She had a fever of 104.7 this morning prompting her to seek evaluation back at the urgent care. She is on roughly day 7 of symptoms and her sats were 91% at urgent care prompting them to recommend admission. She reports feeling much better now that she is here but continues to have dry cough. Subjective/Events-last exam Patient had a desat episode with high HR and HTN Increased sedation has helped Checked meds and labs Focused Exam Lactate Level 08/16/20 21:40: Lactic Acid Level 0.74 Objective Exam Vital Signs Vital Signs Date Time Temp Pulse Resp B/P (MAP) Pulse Ox O2 Delivery O2 Flow Rate FiO2 08/19/20 19:44 36.8 08/19/20 19:17 88 22 95 60 08/19/20 18:00 95/47 (63) Mechanical Ventilator 65.00 Capillary Refill : Less Than 3 SecondsLess Than 3 Seconds General Appearance: No Apparent Distress, WD/WN, Chronically ill Respiratory: Lungs Clear Cardiovascular: Regular Rate, Rhythm Results/Procedures Lab Laboratory Tests 08/19/20 02:50 Patient resulted labs reviewed. Imaging: Reviewed Imaging Report Assessment/Plan Assessment and Plan Assess & Plan/Chief Complaint Assessment per Dr Campbell with my modifications in bold italic: Acute respiratory failure due to COVID-19 with severe ARDS -Start TF -continue ventilator care . Change vent to vt 370, RR 22, and PEEP 12 -Intubated 08/07 -s/p Decadron s/p remdesivir and convalescent plasma -Proning D/C'd secondary to chest tube. -Chest tube is currently to water seal -25ml of pleural fluid output over last 12hrs. - IVF to 30cc/hr D5LR Hypogycemia - D5LR at 30 left PTX -Chest tube placement 08/08 Possible bacterial pneumonia - s/p Cefepime -Eraxis Hypotension Now off Levophed Thrombocytopenia-- improving - HIT Abx is negative D/C Angiomax Nausea and vomiting Antiemetics as needed Hyponatremia Hypokalemia Monitor and replace as needed Debility PT/OT DVT/GI - ppx: Lovenox, pepcid Prognosis guarded, 25 days in hospital and intubated 08/07 Needs [place] or comfort care Critical Care Critically Ill Patient Clinical Quality Measures DVT/VTE Risk/Contraindication: Risk Factor Score Per Nursin RFS Level Per Nursing on Admit: 4+=Very High MARIFER ANN DO Aug 19, 2020 11:53
--- NOTE | 2020-08-19 15:51 | NUR ---
THIS RN CALLED AND SPOKE WITH PT'S SON, AMANDA , AND PROVIDED UPDATE.
[2020-08-19] MEDS: morphine INJ 4 MG/ML 1 ML (VIAL/SYRINGE) IVP PRN (16:02)
[2020-08-19] MEDS: ACETAMINOPHEN 650 MG SUPP (TYLENOL) PR PRN (16:31)
--- NOTE | 2020-08-19 17:44 | NUR ---
GASTRIC RESIDUAL NOTED TO BE LESS THAN 5ML. THIS RN ATTEMPTED TO ADMINISTERED 115ML TUBE FEEDING. 20ML ADMINISTERED - PT NOT TOLERATING FEEDS, TUBE FEED SOLUTION NOTED TO BE LEAKING FROM PT'S MOUTH.
[2020-08-19] MEDS: SERTRALINE 50 MG (ZOLOFT) TABLET PO SCH (20:32)
[2020-08-20] VITALS (21 sets, daily range): BP systolic 91–159; BP diastolic 45–73
[2020-08-20] MEDS: RT-ALBUTEROL INHALER HFA (VENTOLIN HFA) 18 GM IH SCH ×3 (02:32→14:18)
[2020-08-20 03:07] LABS: ABG BASE EXCESS 4.4 MMOL/L (-2.5-2.5); ABG OXYGEN SATURATION 94 % (94-100); ABG PCO2 48 MMHG (35-45); ABG PO2 69 MMHG (79-93); ABG TCO2 30.5 MMOL/L (21.0-31.0)
[2020-08-20 03:08] LABS: BASOPHILS % (AUTO) 0 % (0-10); EOSINOPHILS # (AUTO) 0.3 10^3/uL (0.0-0.3); EOSINOPHILS % (AUTO) 5 % (0-10); HEMATOCRIT 26 % (35-52); HEMOGLOBIN 8.1 g/dL (11.5-16.0); LYMPHOCYTES # (AUTO) 1.1 10^3/uL (1.0-4.0); LYMPHOCYTES % (AUTO) 20 % (12-44); MEAN CORPUSCULAR HEMOGLOBIN 27 pg (25-34); MEAN CORPUSCULAR HGB CONC 31 g/dL (32-36); MEAN CORPUSCULAR VOLUME 87 fL (80-99); MONOCYTES # (AUTO) 0.4 10^3/uL (0.0-1.0); MONOCYTES % (AUTO) 7 % (0-12); NEUTROPHILS # (AUTO) 3.3 10^3/uL (1.8-7.8); NEUTROPHILS % (AUTO) 61 % (42-75); PLATELET COUNT 405 10^3/uL (130-400); WHITE BLOOD COUNT 5.4 10^3/uL (4.3-11.0)
[2020-08-20 03:10] LABS: ALLENS TEST ARTLINE; INSPIRED O2 60; PATIENT TEMP 37; VENTILATOR YES
[2020-08-20 03:17] LABS: CHLORIDE 101 MMOL/L (98-107); POTASSIUM 3.7 MMOL/L (3.6-5.0); SODIUM 135 MMOL/L (135-145)
[2020-08-20 03:18] LABS: CALCIUM 7.4 MG/DL (8.5-10.1)
[2020-08-20 03:19] LABS: GLUCOSE 99 MG/DL (70-105)
[2020-08-20 03:21] LABS: CARBON DIOXIDE 25 MMOL/L (21-32)
[2020-08-20 03:23] LABS: CREATININE SERUM 0.33 MG/DL (0.60-1.30); PHOSPHORUS 3.2 MG/DL (2.3-4.7)
[2020-08-20 03:24] LABS: BUN/CREATININE RATIO 18
[2020-08-20 03:25] LABS: MAGNESIUM 1.7 MG/DL (1.6-2.4)
[2020-08-20 03:28] LABS: GFR ESTIMATED > 60
[2020-08-20] MEDS: NOREPINEPHRINE 4 MG/250 ML 250 ML IV SCH ×2 (03:28→12:29)
--- NOTE | 2020-08-20 05:23 | Pulmonary Progress Note ---
Subjective Time Seen by a Provider: 05:18 Subjective/Events-last exam Pt is sedated on vent. Sepsis Event Evaluation Height, Weight, BMI Height: '" Weight: lbs. oz. kg; 26.88 BMI Method: Exam Exam Vital Signs Date Time Temp Pulse Resp B/P (MAP) Pulse Ox O2 Delivery O2 Flow Rate FiO2 08/20/20 02:49 37.0 Mechanical Ventilator 60.00 08/20/20 02:28 81 22 92 60 08/20/20 01:00 81 08/20/20 01:00 Mechanical Ventilator 60.00 08/20/20 00:07 37.1 08/20/20 00:00 85 15 123/53 (76) 93 Mechanical Ventilator 65.00 08/19/20 23:00 78 21 97/42 (60) 91 Mechanical Ventilator 65.00 08/19/20 22:46 81 22 92 60 08/19/20 22:00 81 21 95/42 (59) 93 Mechanical Ventilator 65.00 08/19/20 21:00 89 21 123/51 (75) 91 Mechanical Ventilator 65.00 08/19/20 20:00 Mechanical Ventilator 60 08/19/20 20:00 87 16 119/51 (73) 92 Mechanical Ventilator 65.00 08/19/20 19:44 36.8 08/19/20 19:17 88 22 95 60 08/19/20 19:00 82 21 91/44 (60) 94 Mechanical Ventilator 65.00 08/19/20 19:00 82 08/19/20 18:00 91 23 95/47 (63) 93 Mechanical Ventilator 65.00 08/19/20 17:45 105 21 114/55 (74) 93 08/19/20 17:30 101 22 98/47 (64) 92 08/19/20 17:15 102 21 103/47 (65) 94 08/19/20 17:01 37.3 08/19/20 17:00 105 19 120/52 (74) 93 Mechanical Ventilator 65.00 08/19/20 16:45 111 20 141/58 (85) 92 08/19/20 16:31 37.7 08/19/20 16:30 106 21 136/51 (79) 93 08/19/20 16:15 124 22 172/83 (112) 88 08/19/20 16:00 107 22 140/88 (108) 90 Mechanical Ventilator 65.00 08/19/20 15:57 37.6 08/19/20 15:45 113 25 157/99 (119) 91 08/19/20 15:30 149 40 173/132 (149) 86 08/19/20 15:15 111 23 125/83 (96) 93 08/19/20 15:00 104 21 131/80 (96) 92 Mechanical Ventilator 65.00 08/19/20 14:45 104 21 139/82 (102) 92 08/19/20 14:43 101 22 94 60 08/19/20 14:30 97 14 128/81 (93) 93 08/19/20 14:15 99 22 127/88 (99) 93 08/19/20 14:01 36.8 08/19/20 14:00 97 31 118/91 (102) 94 Mechanical Ventilator 65.00 08/19/20 13:45 88 20 103/61 (76) 94 08/19/20 13:30 90 22 104/64 (78) 94 08/19/20 13:15 92 22 101/61 (75) 94 08/19/20 13:00 95 22 97/60 (68) 93 Mechanical Ventilator 65.00 08/19/20 12:45 96 24 96/63 (74) 93 08/19/20 12:36 107 08/19/20 12:30 98 22 95/60 (75) 93 08/19/20 12:15 103 22 103/58 (72) 93 08/19/20 12:00 107 19 110/67 (76) 93 Mechanical Ventilator 65.00 08/19/20 11:46 Mechanical Ventilator 65.00 08/19/20 11:45 110 22 113/69 (83) 92 08/19/20 11:30 114 45 128/71 (91) 95 08/19/20 11:23 37.7 08/19/20 11:18 110 22 91 60 08/19/20 11:15 112 19 127/73 (95) 91 08/19/20 11:00 110 21 138/79 (106) 92 Mechanical Ventilator 60.00 08/19/20 10:45 115 25 154/92 (111) 89 08/19/20 10:30 114 22 158/93 (120) 90 08/19/20 10:15 138 19 180/109 (152) 89 08/19/20 10:00 131 19 177/77 (110) 92 Mechanical Ventilator 60.00 08/19/20 09:45 113 22 131/99 (110) 92 08/19/20 09:30 110 17 127/93 (101) 92 08/19/20 09:15 131 16 116/99 (105) 90 08/19/20 09:00 87 22 114/72 (85) 94 Mechanical Ventilator 60.00 08/19/20 08:45 91 22 112/73 (82) 94 08/19/20 08:41 91 Mechanical Ventilator 60 08/19/20 08:32 83 16 102/45 08/19/20 08:30 82 17 110/68 (85) 92 08/19/20 08:15 101/62 (76) 08/19/20 08:00 90 17 98/59 (72) 93 Mechanical Ventilator 60.00 08/19/20 08:00 36.7 08/19/20 07:45 90 17 113/70 (85) 92 08/19/20 07:30 87 17 108/63 (79) 91 08/19/20 07:15 88 21 112/69 (85) 91 08/19/20 07:00 88 08/19/20 07:00 89 24 115/79 (94) 93 Mechanical Ventilator 60.00 08/19/20 06:59 89 23 93 60 08/19/20 06:45 96 22 121/74 (86) 92 08/19/20 06:30 119/77 (91) 08/19/20 06:15 89 21 118/73 (89) 91 08/19/20 06:00 91 16 118/73 (88) 91 Mechanical Ventilator 60.00 I & O 08/20/20 07:00 Intake Total 1695 ml Output Total 795 ml Balance 900 ml Height & Weight Height: '" Weight: lbs. oz. kg; 26.88 BMI Method: General Appearance: No Apparent Distress, WD/WN, Chronically ill HEENT: PERRL/EOMI, Moist Mucous Membranes; No Scleral Icterus (L), No Scleral I cterus (R) Neck: Normal Inspection, Supple Respiratory: Lungs Clear Cardiovascular: Regular Rate, Rhythm Capillary Refill: Less Than 3 Seconds Extremity: Other (no pedal edema, pressure boots in place) Neurologic/Psychiatric: Other (sedated) Skin: Normal Color, Warm/Dry Results Lab Laboratory Tests 08/19/20 02:50 08/20/20 02:50 Assessment/Plan Assessment/Plan Acute respiratory failure due to COVID-19 with severe ARDS -continue TF -continue ventilator care . Change vent to vt 370, RR 22, and PEEP 12 -Intubated 08/07 -s/p Decadron s/p remdesivir and convalescent plasma -Proning D/C'd secondary to chest tube. -Chest tube is currently to water seal -25ml of pleural fluid output over last 12hrs. - IVF to 30cc/hr D5LR -Lasix 40mg IV x 1 Hypogycemia - D5LR at 30 left PTX -Chest tube placement 08/08 Possible bacterial pneumonia - s/p Cefepime -Eraxis Hypotension Now off Levophed Thrombocytopenia-- improving - HIT Abx is negative D/C Angiomax Nausea and vomiting Antiemetics as needed Hyponatremia Hypokalemia Monitor and replace as needed Debility PT/OT DVT/GI - ppx: kevin Canseco JASON M DO Aug 20, 2020 05:23
[2020-08-20] MEDS ORDERED: FUROSEMIDE 40 MG/4 ML INJ (LASIX) IVP ONE (05:30)
[2020-08-20] MEDS: MAGNESIUM 1 GM/100 ML IVPB 100 ML IV SCH ×2 (05:44→05:57)
[2020-08-20] MEDS: POTASSIUM CL 10MEQ/50ML IVPB 50 ML IV SCH (05:44)
[2020-08-20] MEDS: KCL 20 MEQ TAB (K-DUR) PO SCH (05:44)
[2020-08-20] MEDS: inSUlin ASPART (NovoLOG) 1 UNIT/0.01 ML (CHARGE PER UNIT) SC SCH ×2 (05:57→12:14)
[2020-08-20] MEDS: fentaNYL DRIP PRE-MIX 250 ML IV SCH ×2 (05:57→16:53)
--- NOTE | 2020-08-20 08:13 | Diagnostic Imaging Report ---
INDICATION: COVID positive COMPARISON: 08/18/2020 TECHNIQUE: Single radiograph of the chest dated 08/20/2020 FINDINGS: Endotracheal tube and left-sided PICC line are stable. Previously noted enteric catheter is not definitely visualized though there is suggestion of a catheter overlying the lower neck. Bilateral shoulder arthroplasty is again noted. The cardiac silhouette is unchanged. No significant pulmonary vascular congestion. Extensive bilateral pulmonary infiltrates are again identified, not significantly changed from the prior examination. No large-volume pleural effusion. No pneumothorax. No acute osseous abnormality. IMPRESSION: Similar-appearing examination with unchanged extensive bilateral pulmonary infiltrates. Previously noted enteric catheter is no longer visualized. Recommend correlation for interval removal versus significant retraction of previously noted enteric catheter. Dictated by: Dictated on workstation # [id number]
[2020-08-20] MEDS: ENOXAPARIN 40 MG/0.4 ML (LOVENOX) SYR SC SCH (08:58)
[2020-08-20] MEDS: FAMOTIDINE 20MG/2ML IV (PEPCID) IV SCH (08:58)
[2020-08-20] MEDS: VITAMIN D3 125 MCG (5,000 UNITS) CAPSULE PO SCH (08:58)
[2020-08-20] MEDS: ARTIFICIAL TEARS OINT (LACRI-LUBE) 3.5 GM TUBE OU SCH (08:58)
[2020-08-20] MEDS: ADVAIR HFA 115/21 MCG INHALER 8 GM IH SCH (09:27)
[2020-08-20] MEDS: MIDAZOLAM DRIP PRE-MIX 100 ML IV SCH ×2 (10:24→11:00)
--- NOTE | 2020-08-20 11:05 | NUR ---
0855 ASSESSMENT COMPLETE SEE FLOW SHEET, THIS RN CHECKED PLACEMENT OF OG TUBE AND WAS UNABLE TO VERIFY PLACEMENT, THIS RN REPLACED OG TUBE AND PLACEMENT VERIFIED VIA AUSCULTATION. MEDICATION GIVEN AND TUBE FEEDING ALSO GIVEN. PT TOLERATED WELL. WILL CONTINUE TO MONITOR.
--- NOTE | 2020-08-20 11:46 | Physical Therapy Progress Note ---
Therapy Progress Note Patient sedated and intubated. PROM and repositioning performed. CRISTINO JEFFREY PT Aug 20, 2020 11:46
--- NOTE | 2020-08-20 12:51 | NUR ---
CM/SS: Social Service Consult as per placement in a [facility]. Information is faxed to [facility] [phone].
--- NOTE | 2020-08-20 16:02 | NUR ---
CM/SS: Pt is accepted to [facility] and can be admitted today. JAS Cho has given report, notified son Jr Micky. and will contact EMS for transport of pt to [facility].
--- NOTE | 2020-08-20 16:28 | NUR ---
THIS RN SPOKE TO PT'S SON AMANDA PAEZ AND HE IS AGREEABLE TO TRANSFER TO [facility].
== END 2020-08-20 17:10 | DRG 207 ==
LOC: 4TH 13:38 → ICU 07-28 15:20
PROVIDERS: ADMIT Family Medicine; ATTEND Internal Medicine
PROC: XW033E5 Introduction of Remdesivir Anti-infective into Peripheral Vein, Percutaneous Approach, New Technology Group 5 (ICD-10-PCS; 2020-07-25)
PROC: XW13325 Transfusion of Convalescent Plasma (Nonautologous) into Peripheral Vein, Percutaneous Approach, New Technology Group 5 (ICD-10-PCS; 2020-07-25)
PROC: 5A09557 Assistance with Respiratory Ventilation, Greater than 96 Consecutive Hours, Continuous Positive Airway Pressure (ICD-10-PCS; 2020-08-01)
PROC: 5A1955Z Respiratory Ventilation, Greater than 96 Consecutive Hours (ICD-10-PCS; principal; 2020-08-07)
PROC: 0BH17EZ Insertion of Endotracheal Airway into Trachea, Via Natural or Artificial Opening (ICD-10-PCS; 2020-08-07)
PROC: 0W9B30Z Drainage of Left Pleural Cavity with Drainage Device, Percutaneous Approach (ICD-10-PCS; 2020-08-08)
DX: U07.1 COVID-19 (principal); J15.9 Unspecified bacterial pneumonia; J80 Acute respiratory distress syndrome; E87.1 Hypo-osmolality and hyponatremia; J93.9 Pneumothorax, unspecified; I95.9 Hypotension, unspecified; D69.6 Thrombocytopenia, unspecified; E87.6 Hypokalemia; E83.42 Hypomagnesemia; E16.2 Hypoglycemia, unspecified; Z87.891 Personal history of nicotine dependence; Z73.0 Burn-out
CPT/HCPCS: 36415; 36569; 36600; 71045; 71275; 76937; 80048; 80053; 80202; 82533; 82728; 82805; 82962; 83605; 83615; 83735; 83880; 84100; 84145; 84478; 85007; 85014; 85018; 85025; 85027; 85379; 85384; 85610; 85730; 86022; 86141; 86850; 86900; 86901; 86920; 87040; 87070; 87081; 87205; 93005; 94002; 94003; 94640; 94660; 94664; 94760; 94799